=== PATIENT | female | born 1955 | race Caucasian/White ===

== ENCOUNTER 2019-08-22 12:51 | Outpatient (CLI) | payer OTHER, SELFPAY ==
[2019-08-22 13:34] LABS: Add Urine Microscopic? YES; Appearance Urine Cloudy (Clear); Bilirubin Urine Negative (Negative); Blood Urine 3+ (Negative); Color Urine Red (Yellow); Glucose Urine UA Negative (Negative); Ketones Urine Negative (Negative); Leukocyte Esterase Ur 3+ LEU/UL (NEGATIVE); Nitrate Urine Negative (Negative); Protein Urine 2+ mg/dL (Negative); RBC Urine >75 /hpf (0-2); Specific Grav Ur 1.019 (1.001-1.035); Squamous Epithelial Cell Urine Moderate /hpf (Few); Urobilinogen Urine Negative mg/dL (<2.0); WBC Clumps Urine Present /HPF; WBC Urine >75 /hpf (0-3)
== END 2019-08-22 12:52 | disposition home or self-care (01) ==
PROVIDERS: PCP Family Medicine; Visit Provider Physician Assistant
DX: N39.0 Urinary tract infection, site not specified (principal)
CPT/HCPCS: 81001; 87086; 87088

== ENCOUNTER 2019-08-26 14:01 | Outpatient (CLI) | payer OTHER, SELFPAY ==
[2019-08-26 14:21] LABS: Add Urine Microscopic? YES; Appearance Urine Clear (Clear); Bilirubin Urine 2+ (Negative); Blood Urine 1+ (Negative); Color Urine Yellow (Yellow); Glucose Urine UA Negative (Negative); Ketones Urine Negative (Negative); Leukocyte Esterase Ur Negative LEU/UL (Negative); Mucus Urine Rare /lpf; Nitrate Urine Negative (Negative); Protein Urine Negative (Negative); Specific Grav Ur 1.027 (1.001-1.035); Squamous Epithelial Cell Urine Rare /hpf (Few); Urobilinogen Urine Negative mg/dL (<2.0); WBC Urine 0-3 /hpf
== END 2019-08-26 14:02 | disposition home or self-care (01) ==
PROVIDERS: PCP Family Medicine; Visit Provider Physician Assistant
DX: R31.9 Hematuria, unspecified (principal)
CPT/HCPCS: 81001

== ENCOUNTER 2019-08-30 12:48 | Outpatient (CLI) | payer OTHER, SELFPAY ==
--- NOTE | ~2019-08-30 | CT_ITS ---
EXAMINATION: CT abdomen pelvis wo con DATE: 08/30/2019 13:13 INDICATION: Hematuria. Pelvic pain. TECHNIQUE: Computed tomography (CT) of the abdomen and pelvis was performed without intravenous contr ast. Automated exposure control and iterative reconstruction technique were employed. The dose-length product was 951.42 mGy-cm. COMPARISON: CT abdomen 06/09/2008 FINDINGS: The visualized portions of the lung bases demonstrate mild atelectasis. No pleural effusion . The heart size is normal. No pericardial effusion. There is a moderate-sized sliding hiatal hernia. There is a 1.7 cm cyst in the liver. There are changes of cholecystectomy. The spleen, pancreas, adr enal glands, and kidneys are normal. There is no urolithiasis. The bladder is normal. There are tubal ligation clips bilaterally. There is diverticulosis of the colon without evidence of diverticulitis. There are no dilated loops of bowel. The appendix is normal. There are no pathologically enlarged ly mph nodes. There is no free intraperitoneal fluid. There is mild thoracolumbar spondylosis. IMPRESSION: 1. Moderate-sized sliding hiatal hernia. Reviewed, dictated and finalized at location A.
== END 2019-08-30 12:49 | disposition home or self-care (01) ==
PROVIDERS: PCP Family Medicine; Visit Provider Physician Assistant
DX: R31.9 Hematuria, unspecified (principal); K44.9 Diaphragmatic hernia without obstruction or gangrene
CPT/HCPCS: 74176

== ENCOUNTER 2019-09-01 08:02 | Outpatient (CLI) | payer OTHER, SELFPAY ==
[2019-09-01 08:14] LABS: Add Urine Microscopic? NO; Appearance Urine Clear (Clear); Bilirubin Urine Negative (Negative); Blood Urine Negative (Negative); Color Urine Straw (Yellow); Glucose Urine UA Negative (Negative); Ketones Urine Negative (Negative); Leukocyte Esterase Ur Negative LEU/UL (NEGATIVE); Nitrate Urine Negative (Negative); Protein Urine Negative (Negative); Specific Grav Ur 1.013 (1.001-1.035); Urobilinogen Urine Negative mg/dL (<2.0)
== END 2019-09-01 08:03 | disposition home or self-care (01) ==
PROVIDERS: PCP Family Medicine; Visit Provider Physician Assistant
DX: R31.9 Hematuria, unspecified (principal)
CPT/HCPCS: 81003

== ENCOUNTER 2020-01-10 16:28 | Outpatient (CLI) | payer MEDICARE, SELFPAY ==
[2020-01-10 18:03] LABS: Hemoglobin 12.8 g/dL (12.0-15.0); Mean Corpuscular HGB Conc 32.8 g/dl (32-36); Mean Corpuscular Hemoglobin 30.5 pg (26-34); Mean Corpuscular Volume 92.9 fl (80-100); Mean Platelet Volume 8.7 fl (7.4-10.4); Platelet Count Result 331 k/mm3 (150-375); Red Cell Distribution Width 13.7 % (11.5-14.5); White Blood Count 7.8 K/mm3 (4.5-10.0)
[2020-01-10 18:49] LABS: Vitamin D 25 Hydroxy 44.8 ng/mL
== END 2020-01-10 16:29 | disposition home or self-care (01) ==
LOC: ANHLAB 16:36
PROVIDERS: PCP Family Medicine
DX: Z01.812 Encounter for preprocedural laboratory examination (principal); E55.9 Vitamin D deficiency, unspecified
CPT/HCPCS: 36415; 82306; 85027

== ENCOUNTER 2020-02-20 00:11 | Outpatient (CLI) | payer MEDICARE, SELFPAY ==
[2020-02-20 19:58] LABS: SARS-CoV-2 RNA PCR Negative
== END 2020-02-20 00:12 | disposition home or self-care (01) ==
LOC: ANHCOVIDDT 00:11
PROVIDERS: PCP Family Medicine; Visit Provider Internal Medicine Gastroenterology
DX: Z01.812 Encounter for preprocedural laboratory examination (principal); Z20.828 Contact with and (suspected) exposure to other viral communicable diseases
CPT/HCPCS: 87635; C9803; U0003

== ENCOUNTER 2020-02-22 02:56 | Day surgery (SDC) | payer MEDICARE, SELFPAY ==
[2020-02-15 13:21] VITALS: BMI 33.3
[2020-02-22 07:21] VITALS: BP 135/97; PULSE 97; RESP 18; TEMP 36.8; O2SAT 97; BMI 34.6
[2020-02-22] MEDS: LACTATED RINGERS 1,000 ML 150 ML IV CONT (07:30)
--- NOTE | 2020-02-22 08:16 | WPDANESEPPF ---
Anes - Initial Pre Proc Eval Procedure: Operation Date: 02/22/20 08:30 Proposed Procedures p Esophagogastroduodenoscopy - Joseluis Broderick MD Date/Time: 02/22/20 08:16 Surgeon: Joseluis Broderick MD Pre Op Diagnosis: GERD Patient Data Age: 64 Gender: F Height: 5 ft 2 in Weight: 85.9 kg Last Vital Signs Temp 36.8 C 02/22/20 07:21 Pulse 97 02/22/20 07:21 Resp 18 02/22/20 07:21 BP 135/97 H 02/22/20 07:21 Pulse Ox 97 02/22/20 07:21 Allergies Allergy/AdvReac Type Severity Reaction Status Date / Time No Known Allergies Allergy Mild Verified 02/22/20 07:19 Home Medications Medication Instructions Recorded Confirmed Type montelukast 10 mg tablet 10 mg PO DAILY 04/28/19 02/15/20 History omeprazole 40 mg capsule,delayed 40 mg PO DAILY #90 cap 12/01/19 02/15/20 Rx release famotidine 20 mg tablet 20 mg PO DAILY #30 tablet 12/21/19 02/15/20 Rx oxybutynin chloride 5 mg 5 mg PO DAILY #30 tablet 01/16/20 02/15/20 Rx tablet,extended release 24 hr venlafaxine 150 mg 150 mg PO QAM #90 cap 02/08/20 02/22/20 Rx capsule,extended release 24 hr Patient hx anesthesia problems: none Family hx anesthesia problems: none PMFSH Past Medical History Medical History Adenomatous colon polyp Depression Hiatal hernia Surgical History Surgical History S/P carpal tunnel release Status post fusion of joint of finger Social History Social History Smoking status: Never smoker Second hand tobacco smoke exposure: No Alcohol intake: never Substance use: never Substance use type: does not use Living arrangements: with family Gender identity (if verbalized by the patient): Female Spiritual care concerns: No Anes - Eval Final PreProcedure Day of Procedure 02/22/20 08:16 Patient weight: obese Heart: regular rate and rhythm Lungs: clear to auscultation Airway: Mallampati scale class II Neurological: alert and oriented Last oral intake: >/= 8 hours ASA classification: II Emergent: no Anesthetic plan: proceed Anesthesia type and monitoring: general GIVS and standard monitoring Informed Consent: The patient's anesthetic plan and its attendant risks and benefits were discussed with the patient/family/POA. Questions were solicited and answers provided to the satisfaction of the patient/family/POA.
--- NOTE | 2020-02-22 08:31 | PM.HPGS ---
History of Present Illness History of Present Illness Consent: Risks, benefits, and alternatives have been discussed and questions answered. Patient agrees to proceed with procedure. Chief complaint: GERD Narrative: Jillian Echeverria is a 64 year old female with chest pressure and gerd, now using ppi and famotidine. Also has hiatal hernia. Review of Systems Constitutional: Constitutional: Denies headache(s) and Denies weakness Eyes: Eyes: Denies blurry vision ENT: Reports Normal hearing present, Denies headache(s) and Denies neck pain Cardiovascular: Cardiovascular: Denies chest pain and Denies dyspnea Respiratory: Respiratory: Denies dyspnea Gastrointestinal: Gastrointestinal: Reports no additional gastrointestinal complaints Genitourinary: Genitourinary: Denies dysuria Musculoskeletal: Musculoskeletal: Denies neck pain Integumentary/Breasts: Skin/Breast: Denies dry skin Neurologic: Reports Normal hearing present, Denies headache(s) and Denies weakness Psychiatric: Psychiatric: Denies anxiety Endocrine: Endocrine: Denies change in body appearance Hematologic/Lymphatic: Hematologic/Lymphatic: Denies easy bleeding Allergic/Immunologic: Allergic/Immunologic: Denies urticaria PMFSH Past Medical History Medical History Adenomatous colon polyp Depression Hiatal hernia Surgical History Surgical History S/P carpal tunnel release Status post fusion of joint of finger Social History Social History Smoking status: Never smoker Second hand tobacco smoke exposure: No Alcohol intake: never Substance use: never Substance use type: does not use Living arrangements: with family Gender identity (if verbalized by the patient): Female Spiritual care concerns: No Meds Home Medications and Allergies Home Medications Medication Instructions Recorded Confirmed Type montelukast 10 mg tablet 10 mg PO DAILY 04/28/19 02/15/20 History omeprazole 40 mg capsule,delayed 40 mg PO DAILY #90 cap 12/01/19 02/15/20 Rx release famotidine 20 mg tablet 20 mg PO DAILY #30 tablet 12/21/19 02/15/20 Rx oxybutynin chloride 5 mg 5 mg PO DAILY #30 tablet 01/16/20 02/15/20 Rx tablet,extended release 24 hr venlafaxine 150 mg 150 mg PO QAM #90 cap 02/08/20 02/22/20 Rx capsule,extended release 24 hr Allergies Allergy/AdvReac Type Severity Reaction Status Date / Time No Known Allergies Allergy Mild Verified 02/22/20 07:19 Vital Signs Vital Signs - 24 hr 02/22/20 07:21 Temperature 98.2 F Pulse Rate 97 Respiratory Rate 18 Blood Pressure 135/97 H Pulse Oximetry 97 Exam Const: General: comfortable and no acute distress HENMT: General nose exam: Normal nares present Eyes: General: appearance normal, both eyes and all related structures Neck: Neck: no JVD Resp: Auscultation: clear to auscultation bilaterally Cardio: Rate: regular rate Rhythm: regular rhythm GI: Inspection: non-distended GI Palp: Yes Soft to palpation Skin: General skin exam: normal color Neuro: General: gait normal Speech: normal speech Extrem: General: normal to inspection Psych: Mental Status: mental status grossly normal Assessment and Plan Assessment and plan (1) GERD (gastroesophageal reflux disease): Code(s): K21.9 - Gastro-esophageal reflux disease without esophagitis Status: Acute Assessment and Plan: will proceed with egd (2) Hiatal hernia: Code(s): K44.9 - Diaphragmatic hernia without obstruction or gangrene Status: Acute
[2020-02-22 08:44] VITALS: BP 111/75; PULSE 89; RESP 20; O2SAT 95
[2020-02-22 08:54] VITALS: BP 118/74; PULSE 75; RESP 18; O2SAT 98
[2020-02-22 09:04] VITALS: BP 125/85; PULSE 80; RESP 21; O2SAT 100
== END 2020-02-22 09:14 | disposition home or self-care (01) ==
PROVIDERS: PCP Family Medicine; Visit Provider Internal Medicine Gastroenterology
PROC: 0DJ08ZZ Inspection of Upper Intestinal Tract, Via Natural or Artificial Opening Endoscopic (ICD-10-PCS; CPT 43235; principal; 2020-02-22 08:30)
DX: K21.00 Gastro-esophageal reflux disease with esophagitis, without bleeding (principal); K44.9 Diaphragmatic hernia without obstruction or gangrene; R07.89 Other chest pain; K29.70 Gastritis, unspecified, without bleeding; F32.9 Major depressive disorder, single episode, unspecified; E66.9 Obesity, unspecified; Z68.34 Body mass index [BMI] 34.0-34.9, adult
CPT/HCPCS: 43239; 88305; 88342; J7120

== ENCOUNTER 2020-03-06 13:58 | Outpatient (CLI) | payer MEDICARE, SELFPAY ==
--- NOTE | ~2020-03-06 | XR_ITS ---
EXAMINATION: XR UGIAC w barium swallow EXAM DATE: 03/06/2020 14:41 INDICATION: K44.0 - Diaphragmatic hernia with obstruction, without gangr. Esophagitis. TECHNIQUE: Standard single and double contrast barium esophagram and upper GI examination was perform ed. The DAP for this procedure was 2.7 Gycm2. There is no prior study for comparison. FINDINGS: The pharynx is symmetric and without evidence of mass lesion or mucosal irregularity. Ther e is no esophageal stricture, diverticulum or mass identified. There is moderate-sized sliding gastr oesophageal hiatal hernia, which at times reduced completely. The stomach has a normal appearance without evidence of mass lesion, ulceration or filling defect. T here is normal rugal fold pattern. The duodenum and duodenal sweep are normal in appearance. IMPRESSION: Moderate-sized sliding gastroesophageal hiatal hernia. Reviewed, dictated and finalized at location A. ENSATION DIRECTOR
== END 2020-03-06 13:59 | disposition home or self-care (01) ==
PROVIDERS: PCP Family Medicine; Visit Provider Surgery
DX: K44.9 Diaphragmatic hernia without obstruction or gangrene (principal)
CPT/HCPCS: 74246

== ENCOUNTER 2020-04-24 09:25 | Outpatient (CLI) | payer MEDICARE, SELFPAY ==
[2020-04-24 10:01] LABS: Add Urine Microscopic? YES; Appearance Urine Clear (Clear); Bilirubin Urine Negative (Negative); Blood Urine Negative (Negative); Color Urine Yellow (Yellow); Glucose Urine UA Negative (Negative); Ketones Urine Negative (Negative); Leukocyte Esterase Ur 2+ LEU/UL (NEGATIVE); Mucus Urine Rare /lpf; Nitrate Urine Negative (Negative); Protein Urine Negative (Negative); Specific Grav Ur 1.014 (1.001-1.035); Squamous Epithelial Cell Urine Many /hpf (Few); Urobilinogen Urine Negative mg/dL (<2.0); WBC Urine 21-30 /hpf (0-3)
[2020-04-24 10:08] LABS: Alanine Aminotransferase 23 U/L (4-35); Albumin Level 4.2 g/dL (3.5-5.1); Alkaline Phosphatase 116 U/L (38-126); Anion Gap 7 mmol/L (8-16); Aspartate Amino Transferase 28 U/L (14-36); Bilirubin,Total 0.4 mg/dL (0.2-1.3); Blood Urea Nitrogen 16 mg/dL (7-17); Calcium 9.6 mg/dL (8.4-10.2); Carbon Dioxide 30 mmol/L (22-30); Chloride 103 mmol/L (98-107); Estimated Glomerular Filt Rate > 60; Glucose 99 mg/dL (65-105); Potassium 4.4 mmol/L (3.4-5.0); Sodium 140 mmol/L (137-145)
== END 2020-04-24 09:26 | disposition home or self-care (01) ==
PROVIDERS: PCP Family Medicine; Visit Provider Physician Assistant
DX: K21.00 Gastro-esophageal reflux disease with esophagitis, without bleeding (principal); R32 Unspecified urinary incontinence; R26.81 Unsteadiness on feet; R53.83 Other fatigue; Z00.00 Encounter for general adult medical examination without abnormal findings
CPT/HCPCS: 36415; 80053; 81001; 84443

== ENCOUNTER 2020-06-22 09:01 | Outpatient (CLI) | payer MEDICARE, SELFPAY ==
--- NOTE | ~2020-06-22 | DEXA_ITS ---
Bone Density Report Name: Jillian Echeverria Age: 65 Sex: Female Ethnicity: White Date of : 1955 Indication: osteopenia; height loss; prior fracture; Referring Provider: PEDRO DOLL Study: Bone densitometry was performed. Exam Date: June 22, 2020 Accession number: [id number] Bone Density: Region BMD T-score Z-score Classification AP Spine (L3, L4) 0.831 -2.5 -0.5 Osteoporosis Femoral Neck (Left) 0.652 -1.8 -0.2 Osteopenia Total Hip (Left) 0.840 -0.8 0.5 Normal Total Hip Bilateral Avg 0.836 -0.8 0.5 Normal Femoral Neck (Right) 0.715 -1.2 0.4 Osteopenia Total Hip (Right) 0.832 -0.9 0.4 Normal World Health Organization criteria for BMD impression classify patients as: Normal (T-score at or above -1.0), Osteopenia (T-score between -1.0 and -2.5), or Osteoporosis (T-score at or below -2.5). 10-year Fracture Risk: FRAX not reported because: Some T-score for Spine Total or Hip Total or Femoral Neck at or below -2.5 Previous Exams: Region Exam Age BMD T-score BMD Change BMD Change Date g/cm2 vs Baseline vs Previous AP Spine(L3, L4) 06/22/2020 65 0.831 -2.5 -0.059(-6.6%)# -0.023(-2.7%)# 06/09/2008 53 0.855 -2.2 -0.036(-4.0%)* 0.043(5.3%)* 10/04/2005 50 0.812 -2.6 -0.079(-8.8%)* -0.079(-8.8%)* 01/27/2002 46 0.890 -1.9 Total Hip(Left) 06/22/2020 65 0.840 -0.8 0.040(4.9%)# 0.090(12.0%)# 06/09/2008 53 0.750 -1.6 -0.050(-6.3%)* 0.013(1.7%) 10/04/2005 50 0.738 -1.7 -0.063(-7.9%)* -0.063(-7.9%)* 01/27/2002 46 0.801 -1.2 Total Hip(Right) 06/22/2020 65 0.832 -0.9 -0.001(-0.1%)# 0.066(8.6%)# 06/09/2008 53 0.766 -1.4 -0.067(-8.0%)* 0.037(5.1%)* 10/04/2005 50 0.729 -1.7 -0.103(-12.4%) -0.103(-12.4%) 01/27/2002 46 0.832 -0.9 *Denotes significance at 95% confidence level, LSC for AP Spine = 0.022 g/cm2, LSC for Total Hip = 0.027 g/cm2 Clinical Information Provided by Patient: Has had a low trauma fracture Has used the following medications: Vitamin D, Calcium Patient maximum height was 64 No regular weight bearing exercise Does not regularly consume dairy products Drinks caffeinated beverages Onset of menses at age 12 Number of children 1 Impression: The patient has established osteoporosis, based on the Total Spine T-score and the existence of a prior fracture. The patient has risk factors, including: previous fracture. No significant bone loss was observed. Discussion: HIGH RISK OF
--- NOTE | ~2020-06-22 | MM_ITS ---
EXAMINATION: MM screening gokul BI w damon HISTORY: Screening TECHNIQUE: Craniocaudal and mediolateral oblique 3-D tomosynthesis images were obtained and synthetic 2-D images were generated. CAD analysis was submitted and interpreted. COMPARISON: No prior mammogram is available for comparison at this institution. BREAST PARENCHYMAL COMPOSITION: Breast composed of scattered areas of fibroglandular density. FINDINGS: There is no evidence of suspicious mass, calcification, or architectural distortion to sugg est malignancy in either breast. There has been no suspicious interval change. IMPRESSION: 1. No mammographic evidence of malignancy. 2. Recommend routine screening mammography in one year. BI-RADS Category 1: Negative Reviewed, dictated and finalized at location A. SAUCIER
== END 2020-06-22 09:02 | disposition home or self-care (01) ==
LOC: ANHIMG 09:05
PROVIDERS: PCP Family Medicine; Visit Provider Physician Assistant
DX: Z12.31 Encounter for screening mammogram for malignant neoplasm of breast (principal); Z78.0 Asymptomatic menopausal state; M81.0 Age-related osteoporosis without current pathological fracture; M85.852 Other specified disorders of bone density and structure, left thigh; M85.851 Other specified disorders of bone density and structure, right thigh
CPT/HCPCS: 77063; 77067; 77080

== ENCOUNTER 2020-06-26 11:54 | Outpatient (CLI) | payer MEDICARE, SELFPAY ==
--- NOTE | ~2020-06-26 | XR_ITS ---
EXAMINATION: XR chest 2V EXAM DATE: 06/26/2020 13:11 INDICATION: Z01.818 Encounter preprocedural examination. History of gastroesophageal reflux. TECHNIQUE: Frontal and lateral projections of the chest obtained and reviewed. There is no prior michele dy for comparison. FINDINGS: The lungs are clear. There are no pleural effusions. The cardiomediastinal silhouette is within normal limits. There is no pneumothorax suspected. The bones and soft tissues are unremarkab le. IMPRESSION: Unremarkable chest x-ray exam. Reviewed, dictated and finalized at location B. POULE EXAMINER
--- NOTE | 2020-06-26 12:52 | ECG_ITS ---
Measurements Intervals [place] Rate: 80 P: 23 OH: 166 QRS: 10 QRSD: 84 T: 30 QT: 352 QTc: 407 Interpretive Statements SINUS RHYTHM POOR R WAVE PROGRESSION, ANTERIOR LEADS BASELINE ARTIFACT- I, II, III, AVR, AVL, AVF, V3 BORDERLINE ECG Electronically Signed On 06-26-2020 13:56:07 YACHT HAND by Etienne Woods D.O.
[2020-06-26 13:35] LABS: Hematocrit 39.3 % (37.0-47.0); Mean Corpuscular HGB Conc 33.1 g/dl (32-36); Mean Corpuscular Hemoglobin 30.4 pg (26-34); Mean Corpuscular Volume 91.8 fl (80-100); Mean Platelet Volume 8.5 fl (7.4-10.4); Platelet Count Result 329 k/mm3 (150-375); Red Blood Count 4.28 M/mm3 (4.2-5.4); Red Cell Distribution Width 13.9 % (11.5-14.5); White Blood Count 6.5 K/mm3 (4.5-10.0)
[2020-06-26 13:45] LABS: Anion Gap 6 mmol/L (8-16); Blood Urea Nitrogen 17 mg/dL (7-17); Calcium 9.6 mg/dL (8.4-10.2); Carbon Dioxide 30 mmol/L (22-30); Chloride 106 mmol/L (98-107); Estimated Glomerular Filt Rate > 60; Glucose 125 mg/dL (65-105); Potassium 4.2 mmol/L (3.4-5.0); Sodium 142 mmol/L (137-145)
== END 2020-06-26 11:55 | disposition home or self-care (01) ==
LOC: ANHSURGERY 11:55
PROVIDERS: PCP Family Medicine; Visit Provider Surgery
DX: Z01.818 Encounter for other preprocedural examination (principal)
CPT/HCPCS: 36415; 71046; 80048; 85027; 86850; 86900; 86901; 93005

== ENCOUNTER → 2020-06-30 00:51 | Outpatient (CLI) | payer MEDICARE, SELFPAY ==
[2020-06-30 18:54] LABS: SARS-CoV-2 RNA PCR Negative
== END ==
PROVIDERS: PCP Family Medicine; Visit Provider Surgery
DX: Z01.812 Encounter for preprocedural laboratory examination (principal); Z20.822 Contact with and (suspected) exposure to COVID-19
CPT/HCPCS: C9803; U0003; U0005

== ENCOUNTER 2020-07-05 10:04 | Inpatient (IN) | payer MEDICARE, SELFPAY ==
[2020-06-26 12:12] VITALS: BMI 33.8
--- NOTE | 2020-07-03 17:21 | PM.IMHP ---
H&P: HPI History of Present Illness Date/Time: 07/03/20 17:21 Chief Complaint: Heartburn with esophagitis Narrative: Patient is a 65-year-old woman who has had gastroesophageal reflux disease for many years. This was stable on omeprazole but in the last 12-18 months this has not been effective. She was seen by Dr. Zuniga and had an EGD 02/22/2020. This showed grade 2 esophagitis. Pepcid was added to her omeprazole but this really did not alleviate the heartburn. She had a CT scan back in August which showed a moderate-sized hiatal hernia. 03/06/2020 she had a barium swallow upper GI which showed a moderate hiatal hernia but no other lesions or abnormalities. She was seen in the office and evaluated. She is felt to have recalcitrant gastroesophageal reflux and esophagitis. She underwent esophageal manometry at [facility] 03/21/2020. This showed a hypotensive lower esophageal sphincter that relax normally. There was no esophageal motility abnormalities to contraindicate a full 360 degree fundoplication. After thorough discussion in the office, she has been prepared for surgery and is taken to the operating room for laparoscopic Bárbara fundoplication. Review of Systems Review of Systems: All systems reviewed & are unremarkable except as noted in HPI and below Constitutional: Constitutional: Denies anorexia, Denies chills, Denies excessive sweating, Denies fever(s), Denies headache(s) and Denies poor appetite Cardiovascular: Cardiovascular: Denies chest pain and Denies dyspnea Respiratory: Respiratory: Denies cough and Denies dyspnea Gastrointestinal: Gastrointestinal: Reports as per HPI, Denies bloating, Denies constipation, Reports heartburn, Denies nausea and Reports other (Had single incision laparoscopic cholecystectomy in 2009) Neurologic: Denies confusion and Denies headache(s) [facility] Past Medical History Medical History Adenomatous colon polyp Depression GERD (gastroesophageal reflux disease) Surgical History Surgical History History of bunionectomy History of cholecystectomy History of toe surgery hammer toe S/P carpal tunnel release Status post fusion of joint of finger Social History Social History Smoking status: Never smoker Second hand tobacco smoke exposure: No Alcohol intake: current Drinks per week: 1 Substance use: never Substance use type: does not use Additional living arrangements comments: 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 Gender identity (if verbalized by the patient): Female Spiritual care concerns: No Meds Home Medications and Allergies Home Medications Medication Instructions Recorded Confirmed Type venlafaxine 150 mg 150 mg PO QAM #90 cap 02/08/20 06/26/20 Rx capsule,extended release 24 hr calcium carbonate-vitamin D3 1 tablet PO DAILY 06/26/20 06/26/20 History [Calcium + D] famotidine 20 mg PO QAM 06/26/20 06/26/20 History multivitamin [Multiple Vitamin] 1 tablet PO DAILY 06/26/20 06/26/20 History omeprazole 40 mg PO QAM 06/26/20 06/26/20 History Allergies Allergy/AdvReac Type Severity Reaction Status Date / Time No Known Allergies Allergy Mild Verified 06/26/20 12:07 Exam Const: General: cooperative, comfortable, no acute distress, alert and awake; No confusion Orientation/consciousness: No confusion HENMT: Head: normocephalic, atraumatic, no contusions and no scalp lesions Ears: external ears normal General nose exam: Normal external nose present Face and sinus: face symmetric and dry mucous membranes Mouth: Yes Normal oral and palatal mucosa present and Yes tongue normal Throat: posterior oropharynx normal Eyes: Conjunctivae: conjunctivae normal Sclera: sclerae normal Pupils: Equal, round and reactive pupils present EOM: EOMs intact bilat
[2020-07-04] VITALS (19 sets, daily range): BP systolic 132–198; BP diastolic 74–96; PULSE 68–99; RESP 16–36; TEMP 36.3–36.8; O2SAT 95–100
[2020-07-04] MEDS: LACTATED RINGERS 1,000 ML 30 ML IV CONT ×2 (07:20→12:11)
--- NOTE | 2020-07-04 07:34 | WPDHPUPDATE1 ---
History and Physical Update Update Date/Time: 07/04/20 07:34 History and Physical has been reviewed, including an updated exam of the patient. There are NO changes in the patient's condition. Risks, benefits, and alternatives have been discussed and questions answered. Patient agrees to proceed with procedure.
--- NOTE | 2020-07-04 08:02 | P.PNAN_ITS ---
Anes - Initial Pre Proc Eval Procedure: Operation Date: 07/04/20 08:30 Proposed Procedures p Laparoscopic Bárbara Fundoplication - Suman Dukes MD Date/Time: 07/04/20 08:02 Surgeon: Suman Dukes MD Pre Op Diagnosis: GERD, Esophagitis Patient Data Age: 65 Gender: F Height: 1.6 m Weight: 84.7 kg Last Vital Signs Temp 36.3 C L 07/04/20 06:58 Pulse 84 07/04/20 06:58 Resp 18 07/04/20 06:58 BP 132/86 07/04/20 06:58 Pulse Ox 98 07/04/20 06:58 Allergies Allergy/AdvReac Type Severity Reaction Status Date / Time No Known Allergies Allergy Mild Verified 07/04/20 07:31 Home Medications Medication Instructions Recorded Confirmed Type venlafaxine 150 mg 150 mg PO QAM #90 cap 02/08/20 07/04/20 Rx capsule,extended release 24 hr calcium carbonate-vitamin D3 1 tablet PO DAILY 06/26/20 07/04/20 History [Calcium + D] famotidine 20 mg PO QAM 06/26/20 07/04/20 History multivitamin [Multiple Vitamin] 1 tablet PO DAILY 06/26/20 07/04/20 History omeprazole 40 mg PO QAM 06/26/20 07/04/20 History Patient hx anesthesia problems: none Family hx anesthesia problems: none PMFSH Past Medical History Medical History Adenomatous colon polyp Depression GERD (gastroesophageal reflux disease) Surgical History Surgical History History of bunionectomy History of cholecystectomy History of toe surgery hammer toe S/P carpal tunnel release Status post fusion of joint of finger Social History Social History Smoking status: Never smoker Second hand tobacco smoke exposure: No Alcohol intake: current Drinks per week: 1 Alcohol use details: 1 DRINK/WEEK Substance use: never Substance use type: does not use Living arrangements: with family 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 living arrangements comments: 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 Gender identity (if verbalized by the patient): Female Spiritual care concerns: No Anes - Eval Final PreProcedure Day of Procedure 07/04/20 08:02 Patient weight: obese Heart: regular rate and rhythm Lungs: clear to auscultation and normal air movement Airway: Mallampati scale class II Neurological: alert and oriented Last oral intake: >/= 8 hours ASA classification: II Emergent: no Anesthetic plan: proceed Anesthesia type and monitoring: general ETT and standard monitoring Informed Consent: The patient's anesthetic plan and its attendant risks and benefits were discussed with the patient/family/POA. Questions were solicited an d answers provided to the satisfaction of the patient/family/POA.
[2020-07-04] MEDS: FAMOTIDINE 20 MG/2 ML VIAL IV PUSH (08:36)
[2020-07-04] MEDS: ceFAZolin 2 GM/D5W 50 ML 2 GM/50 ML BAG IVPB (09:01)
[2020-07-04] MEDS: BUPIVACAINE/EPINEPHRINE 0.5% 30 ML VIAL INFILTRATE (09:54)
--- NOTE | 2020-07-04 12:20 | PM.PROC ---
Procedure Note - Detailed Date of procedure: 07/04/20 Pre-op diagnosis: GERD, Esophagitis Esophagitis, gastroesophageal reflux, hiatal hernia Post-op diagnosis: other (Right pneumothorax) Procedure performed: Laparoscopic Bárbara fundoplication, placement of right chest tube Description of procedure: The patient was taken to surgery and induced into general anesthesia. Mon catheter was placed. Full prep and drape of the abdomen was carried out. 0.5% Marcaine with epinephrine local was infiltrated prior to placement of each of the trocars. The initial trocar was in the midline cephalad to the umbilicus. The varies needle was used to gain access to the abdominal cavity. Water drop technique was used to confirm. We insufflated the abdomen and then used a [address] the initial port. With this port intraperitoneal we then placed the remaining ports under direct visualization. A left lateral subcostal 10 11 port was placed. Right and left epigastric trocars which were also 10 11 ports were placed. A 12 mm left lateral subcostal port was placed. The patient was then placed in reverse Trendelenburg. A liver retractor was introduced from the right lateral port and then used to elevate the lateral segment of the left lobe of the liver, thereby exposing the diaphragmatic hiatus and hiatal hernia. We started by dividing the hepatic colic ligament over lying the right annelise. Virtually all the dissection was done with the LigaSure. No cautery was used. We then further exposed the right annelise of the diaphragm dissecting between this and the hiatal hernia. Gentle traction on the herniated contents was used and we eventually were able to identify the left annelise and dissect posterior to the esophagus and upper stomach. Some additional dissection in the anterior most aspect of the diaphragmatic hiatus was also carried out. We then turned the stomach so that the greater curvature and greater omentum were exposed. This was done near the upper stomach. Again using the LigaSure, we entered the lesser sac and divided the greater omentum from the upper stomach and fundus of the stomach. There were a lot of adhesions to the posterior stomach and we had to divide these with the LigaSure to mobilize the stomach. Exposure of the short gastrics near the area of the left annelise was difficult but eventually was exposed and the fundus was fully mobilized. We then further went on to dissect adhesions that were overlying the left annelise. Eventually the left annelise was fully exposed. We continued to retract the esophagus and stomach to the patient's right and dissection was carried out in the mediastinum freeing the esophagus from adhesions there and elongating the shortened esophagus. This mobilized the left side of the esophagus fairly well. We then turned the stomach back so that the fundus was on the left side of the abdomen. We looked at the diaphragmatic hiatus and up into the mediastinum from the right side of the esophagus. With gentle traction on the upper stomach we continued dissection in the mediastinum to free up the esophagus more on the right side. Also dissection under the distal esophagus was carried out. Some fatty tissue around the gastroesophageal junction that was also part of the hernia sac was dissected and removed from the abdomen. This was discarded. I was then able to place a Steffanie drain around the distal esophagus. It was clipped to itself. This served as a good traction point just above the stomach and at the distal esophagus. At this point, I placed a ruler in the abdomen and measured the length of intra-abdominal esophagus. We had 3 cm of esophagus. Its desired to have 4 cm or more intra-abdominal. Using the [place] drain, the esophagus was again retracted and I dissected farther up on the right side of the mediastinal esophagus. Using this and then further exposing the esophagus in the mediastinum I dissected nearly to t
--- NOTE | 2020-07-04 12:38 | SUR.PHASEI ---
Addendum entered by Sharath Mckeon RN 07/04/20 14:02: BIPAP REMOVED AT 1400 07/04/20 Original Note: BIPAP 10 INSPIRATORY AND 5 EXPIRATORY AT 80%.
[2020-07-04] MEDS: LABETALOL HCL INJ 100 MG/20 ML VIAL 10 MG IV PUSH (13:19)
[2020-07-04] MEDS: hydrALAZINE HCL 20 MG/ML VIAL 5 MG IV PUSH (14:25)
--- NOTE | 2020-07-04 15:03 | SUR.PHASEI ---
PT OFF BIPAP AND CHEST TUBE IS IN SOUND WORKING ORDER. SENT TO ROOM 250.
[2020-07-04] MEDS: LACTATED RINGERS 1,000 ML 100 ML IV CONT (15:12)
[2020-07-04] MEDS: MORPHINE SULFATE (*CRX) 4 MG/ML INJ IV PUSH ×3 (15:12→20:31)
--- NOTE | 2020-07-04 15:22 | ADMGEN ---
This patient, Jillian Echeverria, was admitted to Medical Room 250-01. Patient/family oriented to hospital policies and general routines including ID bracelet, bed and alarms, visiting hours, pain management, procedures, bathroom and other care routines, personal items, smoking policy, room service/diet, and visiting hours. Information on how to activate the Rapid Response Team has been discussed. Patient/Family are encouraged to report perceived risks to care and to ask questions if they do not understand what they are told or what they should do.
--- NOTE | 2020-07-04 15:22 | PC.NURSE ---
On 07/04/20, the student, [Leatha Moralez ], provided care and completed [employer] documentation on this patient. I have reviewed the student's documentation and agree with the findings.
[2020-07-04] MEDS: IBUPROFEN IV 800 MG/200 ML 800 MG/200 ML BAG 400 MG IVPB (17:05)
[2020-07-04] MEDS: SENNA/DOCUSATE SODIUM TABLET 2 TAB PO (20:32)
[2020-07-04] MEDS: ENOXAPARIN 30 MG/0.3 ML SYRINGE SUB-Q (20:32)
[2020-07-05] VITALS (7 sets, daily range): BP systolic 120–169; BP diastolic 64–94; PULSE 84–94; RESP 16–18; TEMP 36.5–37.1; O2SAT 91–96
--- NOTE | ~2020-07-05 | XR_ITS ---
EXAMINATION: XR chest 1V portable DATE: 07/06/2020 07:38 INDICATION: Right pneumothorax. TECHNIQUE: A single frontal view of the chest was obtained. COMPARISON: Chest single view at 5:32 AM FINDINGS: There is mild atelectasis in the mid and lower lung zones. No pleural effusion. There is a tiny right pneumothorax. The heart size is normal. Surgical clips in the right upper quadrant are lik chantal from cholecystectomy. IMPRESSION: 1. Tiny right pneumothorax status post chest tube removal. 2. Mild atelectasis in the mid and lower lung zones. Reviewed, dictated and finalized at location A.
--- NOTE | ~2020-07-05 | XR_ITS ---
EXAMINATION: XR chest 1V portable DATE: 07/06/2020 05:53 INDICATION: Right pneumothorax. TECHNIQUE: A single frontal view of the chest was obtained. COMPARISON: Chest single view 07/05/2020 FINDINGS: There is mild atelectasis at the lung bases. No pleural effusion or pneumothorax. The heart size is normal. There is a right-sided chest tube in expected position. IMPRESSION: 1. No pneumothorax. Right-sided chest tube in expected position. 2. Mild atelectasis at the lung bases. Reviewed, dictated and finalized at location A.
--- NOTE | ~2020-07-05 | XR_ITS ---
EXAMINATION: XR chest-chest tube insert/pos DATE: 07/04/2020 12:26 INDICATION: Right pneumothorax status post chest tube placement. TECHNIQUE: A single frontal view of the chest was obtained. COMPARISON: Chest single view 07/04/2020 FINDINGS: The patient is rotated to her right. There is mild atelectasis in the mid and lower lung zo libertad. No pleural effusion or pneumothorax. The heart size is normal. There is gas in the chest wall bi laterally. There is a right-sided chest tube in expected position. IMPRESSION: 1. No pneumothorax. Right-sided chest tube in expected position. 2. Mild atelectasis in the mid and lower lung zones. Reviewed, dictated and finalized at location A.
--- NOTE | ~2020-07-05 | XR_ITS ---
EXAMINATION: XR chest 1V portable DATE: 07/05/2020 05:45 INDICATION: Right pneumothorax. TECHNIQUE: A single frontal view of the chest was obtained. COMPARISON: Chest single view 07/04/2020 FINDINGS: There is mild atelectasis in the lower lung zones. No pleural effusion or pneumothorax. The heart size is normal. There is a right-sided chest tube in expected position. There is gas in left l ateral chest wall with interval improvement. Surgical clips in the right upper quadrant are likely fr om cholecystectomy. IMPRESSION: 1. No pneumothorax. Right-sided chest tube in expected position. 2. Mild atelectasis in the lower lung zones. Reviewed, dictated and finalized at location A.
--- NOTE | ~2020-07-05 | XR_ITS ---
EXAMINATION: XR chest 1V portable EXAM DATE: 07/04/2020 11:47 INDICATION: Possible pneumo on the right. TECHNIQUE: Portable AP frontal chest x-ray was obtained. Comparison is made to prior examination from 06/26/2020. FINDINGS: Small to moderate right-sided pneumothorax with about 3 cm from the pleural reflections at the apex. The endotracheal tube is in position. Linear left basilar atelectasis. Left lung wasn't com pletely imaged. No evidence of left pneumothorax. Cardiomediastinal silhouette is normal. There are c holecystectomy clips. IMPRESSION: Small to moderate right pneumothorax. I discussed this finding with the surgeon in the operating room. Reviewed, dictated and finalized at location A.
[2020-07-05] MEDS: MORPHINE SULFATE (*CRX) 4 MG/ML INJ IV PUSH (00:35)
[2020-07-05] MEDS: IBUPROFEN IV 800 MG/200 ML 800 MG/200 ML BAG 400 MG IVPB ×3 (00:35→11:30)
[2020-07-05] MEDS: LACTATED RINGERS 1,000 ML 100 ML IV CONT (04:04)
[2020-07-05 06:26] LABS: Hematocrit 35.3 % (37.0-47.0); Hemoglobin 11.4 g/dL (12.0-15.0); Mean Corpuscular HGB Conc 32.3 g/dl (32-36); Mean Corpuscular Hemoglobin 29.6 pg (26-34); Mean Corpuscular Volume 91.7 fl (80-100); Mean Platelet Volume 8.8 fl (7.4-10.4); Platelet Count Result 294 k/mm3 (150-375); Red Blood Count 3.85 M/mm3 (4.2-5.4); Red Cell Distribution Width 13.9 % (11.5-14.5); White Blood Count 10.1 K/mm3 (4.5-10.0)
[2020-07-05 06:28] LABS: Anion Gap 3 mmol/L (8-16); Blood Urea Nitrogen 14 mg/dL (7-17); Calcium 8.7 mg/dL (8.4-10.2); Carbon Dioxide 30 mmol/L (22-30); Chloride 105 mmol/L (98-107); Estimated CRCL calculation 70 ml/min; Estimated Glomerular Filt Rate > 60; Glucose 113 mg/dL (65-105); Sodium 138 mmol/L (137-145)
--- NOTE | 2020-07-05 09:25 | WPDANESPN ---
Anes - Prog Note Post-Op Date/Time: 07/05/20 09:25 Cardiovascular status: normal Respiratory status: normal Airway patency: baseline Mental status: baseline Post-Op hydration status: normal Vital Signs: Last Vital Signs Temp 36.5 C 07/05/20 05:03 Pulse 94 07/05/20 05:03 Resp 16 07/05/20 05:03 BP 120/74 07/05/20 05:03 Pulse Ox 95 07/05/20 06:00 Pain Score (VAS): 2 I/O: Intake & Output 07/04/20 07/05/20 07/05/20 23:59 07:59 15:59 Intake Total 450 1400 420 Output Total 1413 Balance 450 -13 420 Laboratory Tests 07/05/20 05:16 07/05/20 05:16 07/05/20 07/05/20 05:16 05:16 WBC 10.1 H RBC 3.85 L Hgb 11.4 L Hct 35.3 L MCV 91.7 MCH 29.6 MCHC 32.3 RDW 13.9 Plt Count 294 MPV 8.8 Sodium 138 Potassium 4.0 Chloride 105 Carbon Dioxide 30 Anion Gap 3 L BUN 14 Creatinine 0.70 Estim Creat Clear Calc 70 Estimated GFR > 60 Glucose 113 H Calcium 8.7 Post-procedural complaints: none Patient Feedback: Patient satisfied with anesthetic care.
[2020-07-05] MEDS: polyethylene glycoL 3350 17 GM POWD.PACK PO (09:29)
[2020-07-05] MEDS: VENLAFAXINE HCL XR 75 MG CAP.ER.24H 150 MG PO (09:30)
[2020-07-05] MEDS: PANTOPRAZOLE 40 MG TABLET PO (09:30)
[2020-07-05] MEDS: ENOXAPARIN 30 MG/0.3 ML SYRINGE SUB-Q ×2 (09:31→20:31)
--- NOTE | 2020-07-05 11:36 | PM.PNGS ---
Progress Note: A&P Assessment and Plan (1) Esophagitis determined by endoscopy: Code(s): K20.90 - Esophagitis, unspecified without bleeding Status: Chronic Assessment and Plan: POD#1 and doing well. Pain is well-controlled. Advancing diet to full liquids this morning, will advance to low residue. Encouraged getting up to chair for meals today. Repeat labs tomorrow am (2) Pneumothorax, right: Code(s): J93.9 - Pneumothorax, unspecified Status: Acute Assessment and Plan: Right pneumothorax with chest tube placement during surgery. Chest x-ray this morning showed no pneumothorax and chest tube in good position. No air leak. Will place chest tube to water seal today and repeat chest x-ray tomorrow morning. Encouraged IS use (3) GERD (gastroesophageal reflux disease): Qualifiers: Esophagitis bleeding: without hemorrhage Esophagitis presence: with esophagitis Qualified Code(s): K21.00 - Gastro-esophageal reflux disease with esophagitis, without bleeding Code(s): K21.9 - Gastro-esophageal reflux disease without esophagitis Status: Chronic Additional Plan Discussed the plan of care with Dr. Dukes. Subjective Subjective Date/Time Seen: 07/05/20 11:36 Post Op day: 1 (Laparoscopic Bárbara fundoplication, placement of right chest tube) Patient reports: tolerating liquids well and flatus Interval history: Patient reports having some incisional pain that has been controlled with analgesics. Denies nausea or vomiting. Tolerating her clear liquid diet. No other complaints. Review of Systems Review of Systems: All systems reviewed & are unremarkable except as noted in HPI and below Constitutional: Constitutional: Reports as per HPI, Reports no additional constitutional complaints, Denies chills and Denies fever(s) Cardiovascular: Cardiovascular: Reports no additional cardiovascular complaints, Denies chest pain and Denies leg edema Respiratory: Respiratory: Reports no additional respiratory complaints, Denies cough and Denies dyspnea Gastrointestinal: Gastrointestinal: Reports as per HPI and Reports no additional gastrointestinal complaints Neurologic: Reports system reviewed and no additional complaints, except as documented, Denies confusion and Denies focal weakness Exam Const: General: comfortable, no acute distress, alert and awake Orientation/consciousness: patient oriented x3 Chest: Other: Right anterior chest tube in place, dressing clean/dry/intact. No air leak. Resp: Effort & Inspection: normal respiratory effort Auscultation: clear to auscultation bilaterally Cardio: Rate: regular rate Rhythm: regular rhythm GI: Inspection: non-distended and incision (Abdominal incisions clean and dry, glue intact.) GI Palp: Yes Soft to palpation, Yes Tenderness to palpation present (GI) (incisional) and No Guarding due to palpation present (GI) Auscultation: Hypoactive bowel sounds present Rectal Exam: deferred Skin: General skin exam: normal color Rashes: no rashes Neuro: General: patient oriented x3, moves all extremities and no focal motor deficits Cranial nerves: Yes CN's II-XII intact bilaterally Speech: normal speech Extrem: General: no clubbing, cyanosis or edema and no calf tenderness Psych: Mental Status: mental status grossly normal Attitude: cooperative Thought process: Normal thought process present Thought content: Yes Normal thought content present Insight: Good insight present (Psych) Judgement: Good judgement present (Psych) Objective Data Vital Signs Vital Signs: Vital Signs - 24 hr 07/04/20 12:11 07/04/20 12:15 07/04/20 12:30 Temperature 97.5 F L Pulse Rate 94 99 96 Respiratory Rate 18 20 36 H Blood Pressure 146/74 H 146/74 H 164/94 H Pulse Oximetry 98 96 100 07/04/20 12:45 07/04/20 13:00 07/04/20 13:15 Temperature Pulse Rate 84 82 81 Respiratory Rate 24 H 21 H 20 Blood Pressure 191/96 H 198/91 H 196/95 H Pulse Oxim
--- NOTE | 2020-07-05 15:07 | PC.NURSE ---
On 07/05/20, the student, [Radha Matthew ], provided care and completed [employer] documentation on this patient. I have reviewed the student's documentation and agree with the findings.
[2020-07-05] MEDS: HYDROcodone/acetaminophen (*CRX) 5-325 MG TABLET 1 TAB PO ×2 (16:08→21:51)
[2020-07-05] MEDS: IBUPROFEN 600 MG TABLET PO ×2 (18:07→23:58)
[2020-07-05] MEDS: SENNA/DOCUSATE SODIUM TABLET 2 TAB PO (20:33)
[2020-07-06 05:36] LABS: Hematocrit 36.3 % (37.0-47.0); Mean Corpuscular HGB Conc 33.1 g/dl (32-36); Mean Corpuscular Hemoglobin 30.7 pg (26-34); Mean Corpuscular Volume 92.8 fl (80-100); Mean Platelet Volume 8.5 fl (7.4-10.4); Platelet Count Result 284 k/mm3 (150-375); Red Blood Count 3.91 M/mm3 (4.2-5.4); Red Cell Distribution Width 13.8 % (11.5-14.5); White Blood Count 7.1 K/mm3 (4.5-10.0)
[2020-07-06 05:57] LABS: Anion Gap 0 mmol/L (8-16); Blood Urea Nitrogen 11 mg/dL (7-17); Carbon Dioxide 33 mmol/L (22-30); Chloride 106 mmol/L (98-107); Estimated CRCL calculation 70 ml/min; Estimated Glomerular Filt Rate > 60; Glucose 97 mg/dL (65-105); Potassium 3.7 mmol/L (3.4-5.0); Sodium 139 mmol/L (137-145)
[2020-07-06 06:00] VITALS: BP 150/81; PULSE 77; RESP 16; TEMP 36.1; O2SAT 94
[2020-07-06] MEDS: VENLAFAXINE HCL XR 75 MG CAP.ER.24H 150 MG PO (08:48)
[2020-07-06] MEDS: IBUPROFEN 600 MG TABLET PO ×2 (08:49→11:35)
[2020-07-06] MEDS: ENOXAPARIN 30 MG/0.3 ML SYRINGE SUB-Q (08:50)
[2020-07-06] MEDS: PANTOPRAZOLE 40 MG TABLET PO (08:50)
[2020-07-06] MEDS: polyethylene glycoL 3350 17 GM POWD.PACK PO (08:50)
[2020-07-06 09:00] VITALS: BP 142/83; PULSE 89; RESP 14; TEMP 36.2; O2SAT 96
--- NOTE | 2020-07-06 12:15 | PM.DS ---
DS: Admitting Diagnosis Admitting Diagnosis Admitting Diagnosis: Reflux esophagitis Hiatal hernia DS: Discharge Diagnosis Discharge Diagnosis (1) Esophagitis determined by endoscopy: Code(s): K20.90 - Esophagitis, unspecified without bleeding Status: Chronic (2) Hiatal hernia without gangrene and obstruction: Code(s): K44.9 - Diaphragmatic hernia without obstruction or gangrene Status: Acute (3) Pneumothorax, right: Code(s): J93.9 - Pneumothorax, unspecified Status: Acute DS: Summary Hospital Course Hospital Course: The patient is a 65-year-old woman who has a long history of gastroesophageal reflux disease. In last 12 months this has been recalcitrant to acid reducing medication. She had an EGD that showed reflux esophagitis. She had imaging that showed a moderate hiatal hernia. She had preoperative esophageal manometry that showed a hypotensive lower esophageal sphincter but relatively normal esophageal motility otherwise. After discussion in the office, she was prepared for surgery and taken to the operating room on 07/05/2019. Bárbara fundoplication was performed laparoscopically. The esophagus was very short and high dissection into the mediastinum was necessary. During the surgery the patient suffered a small right pneumothorax. This was treated with a right chest tube on the operating room table. Postoperatively the patient did well. She tolerated liquids and then lower fiber solid foods. Her chest tube was placed to water seal on postop day 1. The lung remained expanded and the chest tube was removed on postop day 2. She was comfortable on oral analgesics an eating adequately. She was ambulating independently and able to be discharged on postoperative day 2 in good condition. Status at Discharge Overall status at discharge: patient is progressing back to baseline Time Spent with Patient Time attestation: Total time spent providing and/or coordinating discharge services: DS: Data Data Completed and Pending Labs on day of discharge: Labs from last 24 hours 07/06/20 07/06/20 05:21 05:21 WBC 7.1 RBC 3.91 L Hgb 12.0 Hct 36.3 L MCV 92.8 MCH 30.7 MCHC 33.1 RDW 13.8 Plt Count 284 MPV 8.5 Sodium 139 Potassium 3.7 Chloride 106 Carbon Dioxide 33 H Anion Gap 0 L BUN 11 Creatinine 0.70 Estim Creat Clear Calc 70 Estimated GFR > 60 Glucose 97 Calcium 9.0 Discharge Plan Discharge Attending physician on discharge: Suman Dukes Discharging Clinician: Suman Dukes Anticipated Discharge Date/Time: 07/06/20 14:00 Patient Disposition: Home, Self-Care Activity: other - see discharge instructions Diet: as tolerated and regular Wound Care Instructions: keep dressing dry Discharge Instructions: Ambulate 3-4 x per day and as tolerated. No lifting over 15-20lbs. May bathe tomorrow-keep right chest dressing dry. Stairs are OK. May drive a car in 3 days. May remove right chest dressing on Thursday and leave open. Okay to shower and wash all incisions with soap and water thereafter. Call office with any complaints of shortness of breath, chest pain, abdominal pain or vomiting, fever over 100.5, or any other significant change in condition. Patient Instructions: Antibiotic Form Stand Alone Forms: General Discharge Information Follow-up/Referrals: Suman Dukes MD [Physician] - 2 Weeks Discharge Medications: New hydrocodone-acetaminophen 5-325 mg tablet 1 - 2 tablet PO Q6H PRN (Reason: pain) Qty: 7 RF: 0 sennosides-docusate sodium [Senokot-S] 8.6-50 mg Tablet 2 tab-cap PO HS Qty: 14 RF: 0 polyethylene glycol 3350 [Miralax] 17 gram Powder In Packet 17 g PO QAM Qty: 30 RF: 0 ibuprofen 600 mg tablet 600 mg PO Q6H PRN (Reason: pain) Qty: 14 RF: 0 Continued multivitamin [Multiple Vitamin] Tablet 1 tablet PO DAILY RF: 0 calcium carbonate-vitamin D3 [Calcium
--- NOTE | 2020-07-06 15:11 | PC.NURSE ---
On 07/06/20, the student, [ Maritza Becca], provided care and completed [employer] documentation on this patient. I have reviewed the student's documentation and agree with the findings.
== END 2020-07-06 14:22 | disposition home or self-care (01) | DRG 327 ==
LOC: ANHSURGERY 10:08 → ANH2MED 10:08
PROVIDERS: Admitting Provider Surgery; PCP Family Medicine; Visit Provider Surgery
PROC: 0DV44ZZ Restriction of Esophagogastric Junction, Percutaneous Endoscopic Approach (ICD-10-PCS; CPT 43281; principal; 2020-07-04 08:30)
DX: K21.00 Gastro-esophageal reflux disease with esophagitis, without bleeding (principal); J95.811 Postprocedural pneumothorax; K44.9 Diaphragmatic hernia without obstruction or gangrene; E66.9 Obesity, unspecified; Z68.33 Body mass index [BMI] 33.0-33.9, adult; Z90.49 Acquired absence of other specified parts of digestive tract
CPT/HCPCS: 36415; 71045; 80048; 85027; 94002; A9270; C1713; C1729; J0360; J0690; J1100; J1170; J1650; J1741; J2250; J2270; J2405; J2704; J2710; J3010; J7120

== ENCOUNTER 2021-04-15 09:38 | Outpatient (CLI) | payer MEDICARE, SELFPAY ==
[2021-04-15 09:54] LABS: Hematocrit 40.4 % (37.0-47.0); Hemoglobin 13.3 g/dL (12.0-15.0); Mean Corpuscular HGB Conc 32.9 g/dl (32-36); Mean Corpuscular Hemoglobin 31.4 pg (26-34); Mean Corpuscular Volume 95.5 fl (80-100); Mean Platelet Volume 8.3 fl (7.4-10.4); Platelet Count Result 309 k/mm3 (150-375); Red Blood Count 4.23 M/mm3 (4.2-5.4); Red Cell Distribution Width 13.5 % (11.5-14.5); White Blood Count 7.2 K/mm3 (4.5-10.0)
[2021-04-15 10:00] LABS: Add Urine Microscopic? NO; Appearance Urine Clear (Clear); Bilirubin Urine Negative (Negative); Blood Urine Negative (Negative); Color Urine Yellow (Yellow); Glucose Urine UA Negative (Negative); Ketones Urine Negative (Negative); Leukocyte Esterase Ur Negative LEU/UL (NEGATIVE); Nitrate Urine Negative (Negative); Protein Urine Negative (Negative); Specific Grav Ur 1.011 (1.001-1.035); Urobilinogen Urine Negative mg/dL (<2.0)
[2021-04-15 10:03] LABS: Alanine Aminotransferase 26 U/L (4-35); Albumin Level 4.4 g/dL (3.5-5.1); Alkaline Phosphatase 126 U/L (38-126); Anion Gap 6 mmol/L (8-16); Aspartate Amino Transferase 28 U/L (14-36); Bilirubin,Total 0.4 mg/dL (0.2-1.3); Blood Urea Nitrogen 15 mg/dL (7-17); Calcium 9.7 mg/dL (8.4-10.2); Carbon Dioxide 30 mmol/L (22-30); Chloride 98 mmol/L (98-107); Cholesterol 219 mg/dL (0-200); Estimated Glomerular Filt Rate > 60; Glucose 101 mg/dL (65-110); HDL Direct 63 mg/dL; Potassium 4.6 mmol/L (3.4-5.0); Sodium 134 mmol/L (137-145); Triglycerides 152 mg/dL (<150)
[2021-04-15 10:15] LABS: LDL Cholesterol Direct 113 mg/dL
[2021-04-15 11:09] LABS: Folic Acid 19.8 ng/mL (2.76->20)
== END 2021-04-15 09:39 | disposition home or self-care (01) ==
PROVIDERS: PCP Family Medicine; Visit Provider Family Medicine
DX: R53.83 Other fatigue (principal); E78.5 Hyperlipidemia, unspecified
CPT/HCPCS: 36415; 80053; 80061; 81003; 82607; 82746; 84443; 85027

== ENCOUNTER 2021-07-01 00:21 | Day surgery (SDC) | payer MEDICARE, SELFPAY ==
[2021-05-14 11:22] VITALS: BMI 31.1
[2021-06-25 13:15] VITALS: BMI 31.1
[2021-07-01 12:30] VITALS: BP 120/84; PULSE 98; RESP 16; TEMP 36.9; O2SAT 98
[2021-07-01] MEDS: LACTATED RINGERS 1,000 ML 150 ML IV CONT (12:32)
--- NOTE | 2021-07-01 12:38 | WPDANESEPPF ---
Anes - Initial Pre Proc Eval Procedure: Operation Date: 07/01/21 13:30 Proposed Procedures p Screening Colonoscopy - Joseluis Broderick MD Date/Time: 07/01/21 12:38 Surgeon: Joseluis Broderick MD Pre Op Diagnosis: hx of colon polyps Patient Data Age: 66 Gender: F Height: 1.57 m Weight: 76.6 kg Last Vital Signs Temp 36.9 C 07/01/21 12:30 Pulse 98 07/01/21 12:30 Resp 16 07/01/21 12:30 BP 120/84 07/01/21 12:30 Pulse Ox 98 07/01/21 12:30 Allergies Allergy/AdvReac Type Severity Reaction Status Date / Time No Known Allergies Allergy Mild Verified 07/01/21 12:28 Home Medications Medication Instructions Recorded Confirmed Type multivitamin 1 tablet PO DAILY 06/26/20 07/01/21 History venlafaxine 150 mg 150 mg PO QAM #90 cap 11/19/20 07/01/21 Rx capsule,extended release 24 hr cholecalciferol (vitamin D3) 125 125 mcg PO DAILY 03/20/21 07/01/21 History mcg (5,000 unit) capsule alendronate 70 mg tablet 70 mg PO WEEKLY #14 tablet 06/03/21 07/01/21 Rx biotin 10 mg PO DAILY 07/01/21 07/01/21 History lactobacillus combination no.8 3,000,000 cell PO DAILY 07/01/21 07/01/21 History [Adult Probiotic] Patient hx anesthesia problems: none Family hx anesthesia problems: none Results Review: All pre-operative results and documents have been reviewed as part of the pre-operative evaluation. [facility] Past Medical History Medical History Adenomatous colon polyp Depression GERD (gastroesophageal reflux disease) Surgical History Surgical History History of bunionectomy History of cholecystectomy History of toe surgery hammer toe S/P carpal tunnel release Status post fusion of joint of finger Status post laparoscopic Bárbara fundoplication Laparoscopic Bárbara fundoplication, placement of right chest tube Social History Social History Smoking status: Never smoker Second hand tobacco smoke exposure: No Alcohol intake: current Drinks per week: 1 Alcohol use details: 1 DRINK/WEEK Substance use: current Substance use type: does not use Living arrangements: with family Additional living arrangements comments: 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 Informed Consent: The patient's anesthetic plan and its attendant risks and benefits were discussed with the patient/family/POA. Questions were solicited and answers provided to the satisfaction of the patient/family/POA.
--- NOTE | 2021-07-01 12:47 | PM.HPGS ---
History of Present Illness History of Present Illness Consent: Risks, benefits, and alternatives have been discussed and questions answered. Patient agrees to proceed with procedure. Chief complaint: hx of colon polyps Narrative: Jillian Echeverria is a 66 year old female with colon polyp about 5 years ago. Review of Systems Constitutional: Constitutional: Denies headache(s) and Denies weakness Eyes: Eyes: Denies blurry vision ENT: Reports Normal hearing present, Denies headache(s) and Denies neck pain Cardiovascular: Cardiovascular: Denies chest pain and Denies dyspnea Respiratory: Respiratory: Denies dyspnea Gastrointestinal: Gastrointestinal: Reports no additional gastrointestinal complaints Genitourinary: Genitourinary: Denies dysuria Musculoskeletal: Musculoskeletal: Denies neck pain Integumentary/Breasts: Skin/Breast: Denies dry skin Neurologic: Reports Normal hearing present, Denies headache(s) and Denies weakness Psychiatric: Psychiatric: Denies anxiety Endocrine: Endocrine: Denies change in body appearance Hematologic/Lymphatic: Hematologic/Lymphatic: Denies easy bleeding Allergic/Immunologic: Allergic/Immunologic: Denies urticaria PMFSH Past Medical History Medical History Adenomatous colon polyp Depression GERD (gastroesophageal reflux disease) Surgical History Surgical History History of bunionectomy History of cholecystectomy History of toe surgery hammer toe S/P carpal tunnel release Status post fusion of joint of finger Status post laparoscopic Bárbara fundoplication Laparoscopic Bárbara fundoplication, placement of right chest tube Social History Social History Smoking status: Never smoker Second hand tobacco smoke exposure: No Alcohol intake: current Drinks per week: 1 Alcohol use details: 1 DRINK/WEEK Substance use: current Substance use type: does not use Living arrangements: with family Additional living arrangements comments: 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 Gender identity (if verbalized by the patient): Female Spiritual care concerns: No Meds Home Medications and Allergies Home Medications Medication Instructions Recorded Confirmed Type multivitamin 1 tablet PO DAILY 06/26/20 07/01/21 History venlafaxine 150 mg 150 mg PO QAM #90 cap 11/19/20 07/01/21 Rx capsule,extended release 24 hr cholecalciferol (vitamin D3) 125 125 mcg PO DAILY 03/20/21 07/01/21 History mcg (5,000 unit) capsule alendronate 70 mg tablet 70 mg PO WEEKLY #14 tablet 06/03/21 07/01/21 Rx biotin 10 mg PO DAILY 07/01/21 07/01/21 History lactobacillus combination no.8 3,000,000 cell PO DAILY 07/01/21 07/01/21 History [Adult Probiotic] Allergies Allergy/AdvReac Type Severity Reaction Status Date / Time No Known Allergies Allergy Mild Verified 07/01/21 12:28 Vital Signs Vital Signs - 24 hr 07/01/21 12:30 Temperature 98.5 F Pulse Rate 98 Respiratory Rate 16 Blood Pressure 120/84 Pulse Oximetry 98 Exam Const: General: comfortable and no acute distress HENMT: General nose exam: Normal nares present Eyes: General: appearance normal, both eyes and all related structures Neck: Neck: no JVD Resp: Auscultation: clear to auscultation bilaterally Cardio: Rate: regular rate Rhythm: regular rhythm GI: Inspection: non-distended GI Palp: Yes Soft to palpation Skin: General skin exam: normal color Neuro: General: gait normal Speech: normal speech Extrem: General: normal to inspection Psych: Mental Status: mental status grossly normal Assessment and Plan Assessment and plan (1) Adenomatous colon polyp: Code(s): D12.6 - Benign neoplasm of colon, unspecified Status: Acute Assessment and Plan: colonoscopy
[2021-07-01 13:09] VITALS: BP 148/72; PULSE 84; RESP 16; O2SAT 100
[2021-07-01 13:19] VITALS: BP 109/76; PULSE 81; RESP 18; O2SAT 100
[2021-07-01 13:29] VITALS: BP 131/92; PULSE 82; RESP 20; O2SAT 100
== END 2021-07-01 13:47 | disposition home or self-care (01) ==
PROVIDERS: PCP Family Medicine; Visit Provider Internal Medicine Gastroenterology
PROC: 0DJD8ZZ Inspection of Lower Intestinal Tract, Via Natural or Artificial Opening Endoscopic (ICD-10-PCS; CPT 45378; principal; 2021-07-01 13:30)
DX: Z12.11 Encounter for screening for malignant neoplasm of colon (principal); Z86.010 Personal history of colon polyps; K57.30 Diverticulosis of large intestine without perforation or abscess without bleeding; K64.8 Other hemorrhoids; K21.9 Gastro-esophageal reflux disease without esophagitis; F32.9 Major depressive disorder, single episode, unspecified; Z90.49 Acquired absence of other specified parts of digestive tract; E66.9 Obesity, unspecified; Z68.30 Body mass index [BMI] 30.0-30.9, adult
CPT/HCPCS: G0105; J2704; J7120

== ENCOUNTER 2021-07-16 15:32 | Outpatient (CLI) | payer MEDICARE, SELFPAY ==
[2021-07-21 08:19] LABS: Tissue Transglutaminase IgG Ab <1.0 U/mL (<15.0)
== END 2021-07-16 15:33 | disposition home or self-care (01) ==
LOC: ANHLAB 15:37
PROVIDERS: PCP Family Medicine; Visit Provider Nurse Practitioner Family
DX: R19.7 Diarrhea, unspecified (principal)
CPT/HCPCS: 36415; 83516

== ENCOUNTER 2021-08-06 10:00 | Outpatient (CLI) | payer MEDICARE, SELFPAY ==
--- NOTE | ~2021-08-06 | MM_ITS ---
EXAMINATION: MM screening gokul BI w damon HISTORY: Screening mammogram TECHNIQUE: Craniocaudal and mediolateral oblique 3-D tomosynthesis images were obtained and synthetic 2-D images were generated. CAD analysis was submitted and interpreted. COMPARISON: No prior mammogram is available for comparison at this institution. BREAST PARENCHYMAL COMPOSITION: There are scattered areas of fibroglandular density. FINDINGS: There is no evidence of suspicious mass, calcification, or architectural distortion to sugg est malignancy in either breast. There has been no suspicious interval change. IMPRESSION: 1. No mammographic evidence of malignancy. 2. Recommend routine screening mammography in one year. BI-RADS Category 1: Negative Reviewed, dictated and finalized at location A.
== END 2021-08-06 10:01 | disposition home or self-care (01) ==
PROVIDERS: PCP Family Medicine; Visit Provider Family Medicine
DX: Z12.31 Encounter for screening mammogram for malignant neoplasm of breast (principal)
CPT/HCPCS: 77063; 77067

== ENCOUNTER 2021-09-17 16:44 | Outpatient (CLI) | payer MEDICARE, SELFPAY ==
[2021-09-17 17:13] LABS: Appearance Urine Slightly Cloudy (Clear); Bilirubin Urine Negative (Negative); Blood Urine 3+ (Negative); Color Urine Yellow (Yellow); Glucose Urine UA Negative (Negative); Ketones Urine Negative (Negative); Leukocyte Esterase Ur 3+ LEU/UL (Negative); Nitrate Urine Negative (Negative); Protein Urine Negative (Negative); Specific Grav Ur <= 1.005 (1.001-1.035); Urobilinogen Urine 0.2 mg/dL (<2.0)
[2021-09-17 17:17] LABS: Bacteria Urine Trace /hpf; Squamous Epithelial Cell Urine Occasional /hpf (Few); WBC Urine >75 /hpf
[2021-09-17 17:18] LABS: Add Urine Microscopic? YES
== END 2021-09-17 16:45 | disposition home or self-care (01) ==
LOC: ANHLAB 16:50
PROVIDERS: PCP Family Medicine; Visit Provider Physician Assistant
DX: N39.0 Urinary tract infection, site not specified (principal); R30.0 Dysuria
CPT/HCPCS: 81001; 87077; 87086; 87186

== ENCOUNTER 2021-11-05 14:17 | Outpatient (CLI) | payer MEDICARE, SELFPAY ==
--- NOTE | ~2021-11-05 | XR_ITS ---
EXAM: XR shoulder LT min 2V DATE: 11/05/2021 14:41 HISTORY: M25.512 - Pain in left shoulder NO KNOWN INJURY . COMPARISON: None available. FINDINGS: Normal mineralization. No fracture or dislocation. No lytic or blastic lesion. Moderate AC joint hypertrophy, otherwise the joint spaces are maintained spaces are maintained. No erosion or pe riosteal change. Soft tissues within normal limits. Incidental note of indistinct pulmonary vascular margins. IMPRESSION: No acute finding in the left shoulder. Moderate AC joint hypertrophy. Incidental note of vascular congestion/mild interstitial edema. Reviewed, dictated and finalized at location K. IMPRESSION: No acute finding in the left shoulder. Moderate AC joint hypertroph y. Incidental note of vascular congestion/mild interstitial edema.
== END 2021-11-05 14:18 | disposition home or self-care (01) ==
PROVIDERS: PCP Family Medicine; Visit Provider Physician Assistant
DX: M25.512 Pain in left shoulder (principal)
CPT/HCPCS: 73030

== ENCOUNTER 2021-12-05 07:55 | Outpatient (CLI) | payer MEDICARE, SELFPAY ==
--- NOTE | ~2021-12-05 | CT_ITS ---
EXAMINATION: CT abdomen pelvis w con INDICATION: Bloating, generalized abdominal pain TECHNIQUE: Computed tomographic images of the abdomen and pelvis were obtained after the administrati on of 100 cc of Omnipaque 350 intravenous contrast. The dose-length product (DLP) was 809.30 mGy-cm. Automated exposure control and iterative reconstruction technique were employed. COMPARISON: 08/30/2019 FINDINGS: Minimal dependent atelectasis is present in the lung bases. The heart size is normal. There appear to be changes of Bárbara fundoplication. The gallbladder is surgically absent. There is mild e nlargement of the common bile duct and central intrahepatic ducts which is likely due to post cholecy stectomy state. There is a 1.8 cm cyst of the liver. The spleen, pancreas, and adrenal glands are nor mal. Hypoattenuating lesions in the kidneys, measuring up to 4 mm on the right, are too small to karen acterize but likely represent cysts. There is a moderate volume of liquid stool in the colon. The juve endix is normal. No pathologically enlarged abdominal or pelvic lymph nodes are identified. There is no free intraperitoneal gas or evidence of bowel obstruction. There is mild fat stranding surrounding normal-sized lymph nodes of the small bowel mesentery. Tubal ligation clips are noted. There is mild lumbar spondylosis. Colonic diverticulosis is present without evidence of diverticulitis. IMPRESSION: 1. Moderate volume of liquid stool in the colon, likely enteritis. While fat stranding surrounding no rmal-sized lymph nodes of the small bowel mesentery is likely reactive. Reviewed, dictated and finalized at location A. IMPRESSION: 1. Moderate volume of liquid stool in the colon, likely enteritis. While fat st randing surrounding normal-sized lymph nodes of the small bowel mesentery is li lesli reactive.
[2021-12-05 08:27] LABS: Estimated Glomerular Filt Rate > 60
== END 2021-12-05 07:56 | disposition home or self-care (01) ==
PROVIDERS: PCP Family Medicine; Visit Provider Nurse Practitioner Family
DX: R19.7 Diarrhea, unspecified (principal); R14.0 Abdominal distension (gaseous)
CPT/HCPCS: 74177; Q9967

== ENCOUNTER 2022-01-15 07:52 | Outpatient (CLI) | payer MEDICARE, SELFPAY ==
--- NOTE | 2022-02-15 21:43 | WPDSLEEPSTUD ---
Sleep Study Date of Study: 01/15/22 Ordering Provider: Darrian Hernandes MD Interpreting Physician: Ana Rosa Ashley MD Sleep Study Type: Split Polysomnogram Height: 1.6 m Weight: 77.564 kg Body Mass Index: 30.2 Neck Circumference (inches): 12.5 [place]: 14 Reason for Sleep Study Fatigue, excessive daytime sleepiness Sleep History Denise Echeverria is a 66-year-old female with complaints of excessive daytime sleepiness. This is been going on for years. She has difficulty falling asleep and staying asleep. She wakes up throughout the night. She does not wake up feeling short of breath. She occasionally wakes up at night with heartburn, belching or coughing. She frequently snores loudly. Others complain about it is so loud. She occasionally has trouble sleeping with a cold. She does not wake up gasping for breath at night. She rarely sweats excessively at night. She does not notice her heart pounding irregularly at night. She rarely falls asleep during the day. She does not fall asleep involuntarily or while driving. She does not experience muscle loss with strong emotion. She rarely has daytime difficulties due to excessive sleepiness. She does not feel paralyzed on waking or falling asleep. She does not have vivid dreamlike scenes on waking or falling asleep. She does not feel afraid to go to sleep. She denies having nightmares. She does not have dream recall. She rarely has racing thoughts. She occasionally feels sad or depressed. She rarely has anxiety. She does not have muscular tension. She rarely notices parts of her body jerking. She occasionally kicks at night. She occasionally has crawling and aching feelings in her legs. She occasionally has leg pain at night. She does not have morning jaw pain or grind her teeth at night. She occasionally is bothered by pain during the day and awakened by pain at night. She does not feel stiff in the morning, does not wake with sore achy muscles are pain in the neck and spine. She has memory problems and concentration difficulties. She takes antacids regularly. Normal bedtime is between 9:00 p.m. and 10:00 p.m., taking 10 minutes or sometimes up to an hour to fall asleep. She typically wakes up 1-2 times at night to urinate, toss and turn and try to return to sleep. On average it may take 5 minutes for her to fall asleep. These awakenings occur soon after falling asleep as well as in the middle of the night. She wakes between 6:00 a.m. and 9:00 a.m.. She estimates getting between 8 and 10 hours of sleep at night. She often stays in bed for 2-3 hours after waking. She does not take naps in the afternoon or evening. A short nap lasting 10 or 15 minutes is not refreshing. She is usually drowsy for an hour after waking. She feels better in the afternoon compared to other times of day. Habits: Never smoked tobacco. Caffeine - she drinks tea 5-6 cups per day. No alcohol or recreational drugs. [facility] Past Medical History Medical History Adenomatous colon polyp Depression Gas bloat syndrome GERD (gastroesophageal reflux disease) Irritable bowel syndrome with diarrhea Surgical History Surgical History History of bunionectomy History of cholecystectomy History of toe surgery hammer toe S/P carpal tunnel release Status post fusion of joint of finger Status post laparoscopic Bárbara fundoplication Laparoscopic Bárbara fundoplication, placement of right chest tube Social History Social History Smoking status: Never smoker Second hand tobacco smoke exposure: No Alcohol intake: current Drinks per week: 1 Alcohol use details: 1 DRINK/WEEK Substance use: current Substance use type: does not use Additional living arrangements comments: 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
[2022-02-15 22:05] VITALS: BMI 30.2
== END 2022-01-16 06:47 | disposition home or self-care (01) ==
LOC: ANHCSM 07:53
PROVIDERS: PCP Family Medicine; Visit Provider Internal Medicine Cardiovascular Disease
DX: G47.33 Obstructive sleep apnea (adult) (pediatric) (principal); G47.10 Hypersomnia, unspecified; G47.61 Periodic limb movement disorder; Z68.30 Body mass index [BMI] 30.0-30.9, adult
CPT/HCPCS: 95811

== ENCOUNTER 2022-03-11 08:57 | Outpatient (CLI) | payer MEDICARE, SELFPAY ==
[2022-03-11 09:32] LABS: Basophils Percent Auto 0.8 % (0.2-1.2); Eosinophils Absolute Auto 0.1 K/mm3 (0-0.3); Eosinophils Percent Auto 1.2 % (0-4.4); Hematocrit 41.3 % (37.0-47.0); Hemoglobin 13.3 g/dL (12.0-15.0); Immature Granulocyte Absolute 0.01 K/mm3 (0.00-0.031); Immature Granulocyte Percent A 0.2 % (0-0.5); Lymphocytes Absolute Auto 1.69 K/mm3 (0.9-3.2); Mean Corpuscular HGB Conc 32.2 g/dl (32-36); Mean Corpuscular Hemoglobin 31.1 pg (26-34); Mean Corpuscular Volume 96.7 fl (80-100); Mean Platelet Volume 8.3 fl (7.4-10.4); Monocytes Absolute Auto 0.4 K/mm3 (0.1-0.6); Monocytes Percent Auto 7.8 % (2.6-8.5); Neutrophils Absolute Auto 2.9 K/mm3 (1.3-6.7); Platelet Count Result 313 k/mm3 (150-375); Red Blood Count 4.27 M/mm3 (4.2-5.4); Red Cell Distribution Width 13.2 % (11.5-14.5); White Blood Count 5.1 K/mm3 (4.5-10.0)
[2022-03-11 09:37] LABS: Appearance Urine Clear (Clear); Bilirubin Urine Negative (Negative); Blood Urine Trace-intact (Negative); Color Urine Yellow (Yellow); Glucose Urine UA Negative (Negative); Ketones Urine Trace mg/dL (Negative); Leukocyte Esterase Ur Negative LEU/UL (NEGATIVE); Nitrate Urine Negative (Negative); Protein Urine Trace mg/dL (Negative); Specific Grav Ur 1.025 (1.001-1.035); Urobilinogen Urine 0.2 mg/dL (<2.0); pH Urine 5.5 (5.0-9.0)
[2022-03-11 09:43] LABS: Alanine Aminotransferase 26 U/L (6-35); Albumin Level 4.4 g/dL (3.5-5.1); Alkaline Phosphatase 114 U/L (38-126); Anion Gap 9 mmol/L (8-16); Aspartate Amino Transferase 28 U/L (14-36); Bilirubin,Total 0.4 mg/dL (0.2-1.3); Blood Urea Nitrogen 19 mg/dL (7-17); Calcium 9.3 mg/dL (8.4-10.2); Carbon Dioxide 28 mmol/L (22-30); Chloride 104 mmol/L (98-107); Estimated Glomerular Filt Rate > 60; Glucose 102 mg/dL (65-110); Potassium 4.5 mmol/L (3.4-5.0); Sodium 141 mmol/L (137-145)
[2022-03-11 10:03] LABS: Mucus Urine Rare /lpf; Renal Epithelial Cells Urine Rare /hpf (None Seen); Squamous Epithelial Cell Urine Occasional /hpf (Few); WBC Urine 0-3 /hpf (0-3)
[2022-03-11 10:11] LABS: Thyroid Stimulating Hormone 0.152 uIU/mL (0.465-4.680)
[2022-03-11 10:20] LABS: Add Urine Microscopic? YES
[2022-03-11 10:27] LABS: Vitamin D 25 Hydroxy 34.8 ng/mL
== END 2022-03-11 08:58 | disposition home or self-care (01) ==
PROVIDERS: PCP Family Medicine; Visit Provider Physician Assistant
DX: M81.0 Age-related osteoporosis without current pathological fracture (principal); R35.0 Frequency of micturition; N39.3 Stress incontinence (female) (male); R53.83 Other fatigue; R06.09 Other forms of dyspnea
CPT/HCPCS: 36415; 80053; 81001; 82306; 84443; 85025

== ENCOUNTER 2022-05-06 15:16 | Outpatient (CLI) | payer MEDICARE, SELFPAY ==
[2022-05-06 16:33] LABS: Thyroid Stimulating Hormone 0.765 uIU/mL (0.465-4.680)
[2022-05-06 17:25] LABS: Free T4 Free Thyroxine 0.79 ng/mL (0.78-2.19)
== END 2022-05-06 15:17 | disposition home or self-care (01) ==
PROVIDERS: PCP Family Medicine; Visit Provider Family Medicine
DX: R79.89 Other specified abnormal findings of blood chemistry (principal); E05.90 Thyrotoxicosis, unspecified without thyrotoxic crisis or storm
CPT/HCPCS: 36415; 84439; 84443

== ENCOUNTER 2023-02-04 11:35 | Outpatient (CLI) | payer MEDICARE, SELFPAY ==
--- NOTE | ~2023-02-04 | XR_ITS ---
EXAMINATION: XR abdomen/kub 1V DATE: 02/04/2023 11:52 INDICATION: Unspecified fecal incontinence. TECHNIQUE: A supine view of the abdomen on 2 radiographs was obtained. COMPARISON: CT abdomen and pelvis 12/05/2021 FINDINGS: There are no dilated loops of bowel. There is a moderate volume of stool in the colon. Surg ical clips in the right upper quadrant are likely from cholecystectomy. Tubal ligation clips are note d. There are phleboliths in the pelvis. IMPRESSION: 1. Normal bowel gas pattern. Reviewed, dictated and finalized at location E.
== END 2023-02-04 11:36 | disposition home or self-care (01) ==
PROVIDERS: PCP Family Medicine; Visit Provider Nurse Practitioner Family
DX: R32 Unspecified urinary incontinence (principal)
CPT/HCPCS: 74018

== ENCOUNTER 2023-06-25 08:20 | Outpatient (CLI) | payer MEDICARE, SELFPAY ==
[2023-06-25 09:04] LABS: Appearance Urine Clear (Clear); Bilirubin Urine Negative (Negative); Blood Urine Negative (Negative); Color Urine Yellow (Yellow); Glucose Urine UA Negative (Negative); Ketones Urine Negative (Negative); Leukocyte Esterase Ur Negative LEU/UL (NEGATIVE); Nitrate Urine Negative (Negative); Protein Urine Negative (Negative); Specific Grav Ur 1.004 (1.001-1.035); Urobilinogen Urine 0.2 mg/dL (<2.0)
[2023-06-25 09:05] LABS: Add Urine Microscopic? NO
[2023-06-25 09:18] LABS: Alanine Aminotransferase 18 U/L (6-35); Albumin Level 4.3 g/dL (3.5-5.1); Alkaline Phosphatase 104 U/L (38-126); Anion Gap 6 mmol/L (8-16); Aspartate Amino Transferase 24 U/L (14-36); Bilirubin,Total 0.4 mg/dL (0.2-1.3); Blood Urea Nitrogen 19 mg/dL (7-17); Calcium 9.8 mg/dL (8.4-10.2); Carbon Dioxide 30 mmol/L (22-30); Chloride 104 mmol/L (98-107); Cholesterol 191 mg/dL (0-200); Estimated Glomerular Filt Rate > 60; Glucose 101 mg/dL (65-110); HDL Direct 62 mg/dL; Potassium 4.4 mmol/L (3.4-5.0); Sodium 140 mmol/L (137-145); Triglycerides 127 mg/dL (<150)
[2023-06-25 09:28] LABS: LDL Cholesterol Direct 114 mg/dL
== END 2023-06-25 08:21 | disposition home or self-care (01) ==
PROVIDERS: PCP Family Medicine; Visit Provider Family Medicine
DX: E78.5 Hyperlipidemia, unspecified (principal); R53.83 Other fatigue; Z00.00 Encounter for general adult medical examination without abnormal findings
CPT/HCPCS: 36415; 80053; 80061; 81003; 84443

== ENCOUNTER 2023-10-29 09:38 | Outpatient (CLI) | payer MEDICARE, SELFPAY ==
--- NOTE | ~2023-10-29 | PE_ITS ---
EXAMINATION: PET skull to mid thigh DATE: 10/29/2023 11:42 INDICATION: Right lung upper lobe nodule. TECHNIQUE: Blood glucose level was 95 mg/dL. 10.012 mCi of 18-fluorodeoxyglucose (18-FDG) was adminis tered i.v. Low dose computed tomography (CT) images were acquired from the base of the brain to the p roximal thighs for attenuation correction and anatomic localization. Automated exposure control was e mployed. Dose-length product (DLP) was 1041 mGy-cm. Positron emission tomography (PET) images were ac quired in the same distribution. COMPARISON: CT abdomen and pelvis 12/05/2021 FINDINGS: Head/neck: There are no pathologically enlarged lymph nodes. Chest: There is an 11 mm nodule with maximum SUV of 4.3 in right lung upper lobe. There is mild atele ctasis bilaterally. No pleural effusion. Cardiomegaly is noted. No pericardial effusion. There is a s mall sliding hiatal hernia. Abdomen/pelvis/proximal thighs: There is a 15 mm cyst in the liver. There are changes of cholecystect johan. The spleen, pancreas, adrenal glands, and kidneys are normal. There is diverticulosis of the col on without evidence of diverticulitis. The appendix is normal. There are no pathologically enlarged l ymph nodes. There is increased activity in a normal-sized left inguinal lymph node, likely reactive. There is no free intraperitoneal fluid. IMPRESSION: 1. 11 mm nodule in right lung upper lobe with increased activity which may be granulomatous disease o r primary bronchogenic carcinoma. CT-guided biopsy is recommended. Reviewed, dictated and finalized at location E. IMPRESSION: 1. 11 mm nodule in right lung upper lobe with increased activity which may be g ranulomatous disease or primary bronchogenic carcinoma. CT-guided biopsy is rec ommended.
[2023-10-29 09:51] LABS: Glucose Point of Care 95 mg/dl (65-105)
== END 2023-10-29 09:39 | disposition home or self-care (01) ==
LOC: ANHIMG 09:40
PROVIDERS: PCP Family Medicine; Visit Provider Physician Assistant Medical
DX: R91.1 Solitary pulmonary nodule (principal)
CPT/HCPCS: 78815; A9552

== ENCOUNTER 2023-11-10 09:22 | Outpatient (CLI) | payer MEDICARE, SELFPAY ==
[2023-11-10] VITALS (10 sets, daily range): BP systolic 114–153; BP diastolic 66–88; PULSE 65–79; RESP 14–20; TEMP 36.3; O2SAT 98–100
--- NOTE | ~2023-11-10 | XR_ITS ---
XR chest 1V portable Ordering provider: Surya Bautista MD History: 68 years Female with . Post Image Guided Lung Biopsy . Comparison: November 10, 2023 FINDINGS: MEDIASTINUM: The cardiac silhouette is not enlarged. LUNGS: No infiltrates, or effusions. Tiny right apical pneumothorax is highly suggestive. Follow-up a dvised. The opacity in the right apical area is unchanged. OTHER: No free air under the diaphragm. Degenerative changes of the spine. Healing fracture in the left third rib. IMPRESSION: opacity in the right apical area is unchanged. Tiny right apical pneumothorax is highly suggestive. Follow-up advised. No other acute cardiopulmonary pathology. Reviewed, dictated and finalized at location A.
--- NOTE | ~2023-11-10 | XR_ITS ---
EXAMINATION: XR chest 1V portable DATE: 11/10/2023 15:01 INDICATION: Status post percutaneous right lung biopsy TECHNIQUE: frontal view of the chest was obtained. COMPARISON: Chest radiograph dated 11/10/2023 at 12:59 PM FINDINGS: Unchanged tiny pneumothorax at the right apex. Probable airspace opacity medial right apex correspond ing to the biopsied nodule and likely small amount of surrounding pulmonary hemorrhage and/or atelect asis. No other airspace opacities, pulmonary edema, pleural effusion or left-sided pneumothorax. The cardiomediastinal silhouette is normal. IMPRESSION: 1. No interval change in a tiny right apical pneumothorax and small amount of hemorrhage surrounding the biopsied right apical nodule. Reviewed, dictated and finalized at location A. IMPRESSION: 1. No interval change in a tiny right apical pneumothorax and small amount of h emorrhage surrounding the biopsied right apical nodule.
--- NOTE | ~2023-11-10 | XR_ITS ---
XR chest 1V 11/10/2023 11:50 Indication: Status post right upper lobe biopsy Procedure: AP view of the chest Comparison: CT dated 11/10/[address] dated 10/29/2023 Findings: There is right apical mass. No pneumothorax identified post biopsy. Heart size normal. Left lung clear. Impression: 1: No pneumothorax identified post procedure. 2: Right apical mass. Cannot exclude bronchogenic carcinoma. Recommend correlation with pathology re port. Reviewed, dictated and finalized at location B. Impression: 1: No pneumothorax identified post procedure. 2: Right apical mass. Cannot exclude bronchogenic carcinoma. Recommend correla tion with pathology report.
--- NOTE | ~2023-11-10 | CT_ITS ---
EXAMINATION: CT biopsy lung w/imaging DATE: 11/10/2023 12:21 INDICATION: Right upper lobe nodule TECHNIQUE: The procedure including the risks and benefits was discussed with the patient. Risks discu ssed included infection, approximately 1/20 risk of symptomatic hemorrhage beyond mild hemoptysis, ap proximately 1/3 risk of pneumothorax, and approximately 1/10 risk of pneumothorax severe enough to wa rrant chest tube placement. The patient understood the risks and agreed to proceed. The patient was p laced prone. The skin overlying the posterior right upper lung was prepped and draped in sterile fas hion. Anesthetic was administered with 1% lidocaine subcutaneously. A 19 gauge outer needle was adv anced under CT guidance to the lesion of interest. A 20 gauge core biopsy needle was then used to obt ain 4 core biopsy specimens. The needle was removed and the entry site was cleaned and dressed. Ther e were no immediate complications. The dose-length product was 135.80 mGy-cm. FINDINGS: CT images demonstrate the outer needle tip adjacent to a 1.3 cm spiculated nodule at the ri t apex. IMPRESSION: 1. Successful CT-guided biopsy of a 1.3 cm spiculated right apical nodule. Reviewed, dictated and finalized at location A.
[2023-11-10 10:26] LABS: Mean Platelet Volume 8.4 fl (7.4-10.4); Platelet Count Result 283 k/mm3 (150-375)
[2023-11-10 10:34] LABS: INR 0.9; Prothrombin Time 12.5 Seconds (11.1-14.7)
== END 2023-11-10 15:40 | disposition home or self-care (01) ==
PROVIDERS: PCP Family Medicine; Visit Provider Radiology Diagnostic Radiology
PROC: BB24ZZZ Computerized Tomography (CT Scan) of Bilateral Lungs (ICD-10-PCS; CPT 32408; principal; 2023-11-10 11:00)
DX: Z01.818 Encounter for other preprocedural examination (principal); C34.11 Malignant neoplasm of upper lobe, right bronchus or lung; R91.1 Solitary pulmonary nodule
CPT/HCPCS: 32408; 36415; 71045; 85049; 85610; 88305

== ENCOUNTER 2024-01-21 08:33 | Outpatient (CLI) | payer MEDICARE, SELFPAY ==
--- NOTE | ~2024-01-21 | CT_ITS ---
Clinical Indication: Lung cancer CT Scan of the Chest with Contrast: Technique: Contiguous sections were acquired throughout the chest after intravenous administration of 75 cc of Omnipaque 350. Dose reduction technique was used on this scan by utilizing automated exposu re control and iterative reconstruction technique. The dose-length product (DLP) was 175.56 mGy-cm. COMPARISON: 10/29/2023 Findings: There is no evidence of any significant mediastinal, hilar or axillary lymphadenopathy. There is no f illing defect in the pulmonary arterial tree to suggest pulmonary embolus. There is no evidence of ao rtic dissection or aneurysm. There is no evidence of pleural or pericardial effusion. 1.5 cm spiculated lesion at the right lung apex is essentially stable from prior exam. No other pulmo nary abnormality seen. Images through the upper abdomen reveal no abnormalities. Impression: Stable 1.5 cm spiculated lesion at the right lung apex. Correlate with prior biopsy results. Reviewed, dictated and finalized at [facility]. Impression: Stable 1.5 cm spiculated lesion at the right lung apex. Correlate with prior bi opsy results.
[2024-01-21 08:57] LABS: Estimated Glomerular Filt Rate > 60
== END 2024-01-21 08:34 | disposition home or self-care (01) ==
PROVIDERS: PCP Family Medicine; Visit Provider Thoracic Surgery (Cardiothoracic Vascular Surgery)
DX: R91.1 Solitary pulmonary nodule (principal); C34.11 Malignant neoplasm of upper lobe, right bronchus or lung
CPT/HCPCS: 71260; Q9967

== ENCOUNTER 2024-06-27 08:46 | Outpatient (CLI) | payer MEDICARE, SELFPAY ==
--- NOTE | ~2024-06-27 | MM_ITS ---
EXAMINATION: MM screening gokul BI w damon HISTORY: Screening mammogram TECHNIQUE: Craniocaudal and mediolateral oblique 3-D tomosynthesis images were obtained and synthetic 2-D images were generated. CAD analysis was submitted and interpreted. COMPARISON: 08/06/2021, 06/22/2020 BREAST PARENCHYMAL COMPOSITION:Not Dense. The breasts are almost entirely fatty FINDINGS: No suspicious mass, calcification, or architectural distortion are identified in either bennie ast to suggest malignancy. There has been no suspicious interval change. IMPRESSION: No mammographic evidence of malignancy. Recommend routine screening mammography in one year. BI-RADS Category 1: Negative Reviewed, dictated and finalized at location .
--- NOTE | ~2024-06-27 | DEXA_ITS ---
Bone Density Report Name: BELKIS JONES Age: 69 Sex: Female Ethnicity: White Date of : 1955 Indication: postmenopausal; screening for osteoporosis; parental hip fracture; height loss; prior fracture; Referring Provider: LAKIA WONG Study: Bone densitometry was performed. Exam Date: June 27, 2024 Accession number: [id number] Bone Density: Region BMD T-score Z-score Classification AP Spine(L1-L4) 0.939 -1.0 1.1 Normal Femoral Neck (Left) 0.637 -1.9 -0.1 Osteopenia Total Hip (Left) 0.794 -1.2 0.3 Osteopenia Femoral Neck (Right) 0.678 -1.5 0.3 Osteopenia Total Hip (Right) 0.805 -1.1 0.4 Osteopenia Total Hip Mean 0.800 -1.2 0.4 Osteopenia World Health Organization criteria for BMD impression classify patients as: Normal (T-score at or above -1.0), Osteopenia (T-score between -1.0 and -2.5), or Osteoporosis (T-score at or below -2.5). 10-year Fracture Risk(1): Major Osteoporotic Fracture 26% Hip Fracture 6.2% Reported Risk Factors: [place] (), Neck BMD=0.637, BMI=30.5, previous fracture, parental fracture (1) FRAX(R) Version 3.08. Fracture probability calculated for an untreated patient. Fracture probability may be lower if the patient has received treatment. Previous Exams: Region Exam Age BMD T-score BMD Change BMD Change Date g/cm2 vs Baseline vs Previous Total Hip(Left) 06/27/2024 69 0.794 -1.2 -0.046 (-5.5%) -0.046 (-5.5%) 06/22/2020 65 0.840 -0.8 Total Hip(Right) 06/27/2024 69 0.805 -1.1 -0.027 (-3.2%) -0.027 (-3.2%) 06/22/2020 65 0.832 -0.9 *Denotes significance at 95% confidence level, LSC for Total Hip = 0.027 g/cm2 # Denotes dissimilar scan types or analysis methods Clinical Information Provided by Patient: Has had a low trauma fracture Parent has had a hip fracture Patient maximum height was 64 Menopause Age: 41 No regular weight bearing exercise Does not regularly consume dairy products Drinks caffeinated beverages Onset of menses at age 13 Number of children 1 Impression: The patient has low bone mass, based on the Left Femoral Neck T-score. The patient has an estimated ten-year risk of hip fracture of 6.2% and an estimated ten-year risk of major fracture of 26%, based on the WHO FRAX algorithm. The patient has risk factors, including: parental hip fracture, previous fracture. No significant bone loss was observed. Discussion: BONE DENSITY IS LOW AT ONE OR MORE SKELETAL SITES. THE PATIENT'S BMD AND CLINICAL RISK FACTORS CONTRIBUTE TO THIS PATIENT'S HIGH RISK OF FRACTURE. This patient's lowest T-score is low at one or more skeletal sites. It meets the World Health Organization's (WHO) criteria for ?low bone mass? (T-score between -1.0 and -2.5). The patient's 10-year risk of hip fracture and 10 year risk of a major osteoporotic fracture as calculated by FRAX exceeds the threshold where pharmacological therapy is recommended by the National Osteoporosis Foundation (NOF). However, all treatment decisions require clinical judgment and consideration of individual patient factors, including patient preferences, comorbidities, previous drug use, risk factors not captured in the FRAX model (e.g., frailty, falls, vitamin D deficiency, increased bone turnover, interval significant decline in bone density) and possible under or overestimation of fracture risk by FRAX. The patient should follow a healthful lifestyle (good nutrition with adequate calcium and vitamin D, and appropriate weight-bearing exercise). Follow-Up: Consider a repeat BMD and Vertebral Fracture Assessment (VFA) exam in 2 years or sooner if medically necessary, to reassess this patient's status. Reported by: JER on 06/27/2024 9:24:00 AM. Reviewed, dictated and finalized at location A. BENJAMIN
--- OUTSIDE RECORDS SUMMARY | 2024-06-27 09:37 | XMS_ITS | Patient Health Summary ---
Author Organization [facility] Address [address] [place] [address] Care Team Providers Care Hair Mixer Name Role Phone Rm Ansari MD Primary Care Provider [phone] Valentino Martinez MD Unavailable [phone] Note from [facility],non-owned Affiliates and Associated Physician Practices is amultiple site organization consisting of ambulatory clinics and hospital sitesin [place], [place], [place] and [place]. This disclosure is being madepursuant to the Care Everywhere program and may not contain all information available regarding this patient. Last updated 18.[facility] Allergies No known active allergies Medications * Be aware that medications may not be up to date on this document. Alwaysverify current medications with the patient. * famotidine (PEPCID) 20 MG tablet Take 20 mg by mouth once daily * loratadine (CLARITIN) 10 MG tablet Take 10 mg by mouth once daily * OMEPRAZOLE PO Take 40 mg by mouth once daily * oxybutynin CR 24hr (DITROPAN-XL) 5 MG tablet Take 5 mg by mouth once daily * Venlafaxine HCl (VENLAFAXINE ER 24HR) 150 MG tablet Take 150 mg by mouth daily with breakfast * MULTIPLE VITAMIN PO Take by mouth once daily * Calcium Carb-Cholecalciferol (CALCIUM 600 + D PO) * HYDROcodone-acetaminophen (NORCO) 5-325 MG tablet(Started 02/14/2020) Take 1 tablet by mouth every 6 hours as needed for Pain Social History Tobacco Use Types Packs/Day Years Used Date Smoking Tobacco: Never Smokeless Tobacco: Never Alcohol Use Standard Drinks/Week Comments Yes 1 (1 standard drink = 0.6 oz pur e alcohol) socially Sex and Gender Information Value Date Recorded Sex Assigned at Not on file Gender Identity Not on file Sexual Orientation Not on file Last Filed Vital Signs Vital Sign Reading Time Taken Comments Blood Pressure 130/88 02/14/2020 11:00 AM CDT Pulse 69 02/14/2020 11:00 AM CDT Temperature 36.3 C (97.4 F) 02/14/2020 10:35 AM CDT Respiratory Rate 23 02/14/2020 11:0 0 AM CDT Oxygen Saturation 95% 02/14/2020 11: 00 AM CDT Inhaled Oxygen Concentration - - Weight 85.6 kg (188 lb 12.8 oz) 02/14/2020 8:16 AM CDT Height 157.5 cm (5' 2 ) 02/14/2020 8:16 AM CDT Body Mass Index 34.53 02/14/2020 8:16 AM CDT Medical Devices Implanted Type Area Solar Electric Installer Device Identifier Shelf Expiration Date Model / Serial / Lot Graft Bone Tenfuse Pip 10d Algrf 18x2.7 Implanted:Qty: 1 on 02/14/2020 by Hortencia Monte MD at [facility] Right: Foot [employer] 06/09/2021 [id number] / / [id number] Description:Ref [id number] 2.0 X 14mm Screw Implanted:Qty: 1 on 02/14/2020 by Hortencia Monte MD at [facility] Right: Foot [id number] / / 2.4 X 12mm Screw Implanted:Qty: 1 on 02/14/2020 by Hortencia Monte MD at [facility] Right: Foot [id number] / / Explanted Type Area Solar Electric Installer Device Identifier Shelf Expiration Date Model / Serial / Lot Wire K 1.1mm 150mm Troc Blnt Fx Explanted:Qty: 1 on 02/14/2020 by Hortencia Monte MD at [facility] Right: Foot [employer] [id number] / / 2.0 X 10mm Screw Explanted:Qty: 1 on 02/14/2020 at [facility] Right: Foot [id number] / / [id number] Procedures * XR FOOT RIGHT 3VW OR MORE(Performed 02/14/2020) Performed for Post-operative state * OSTEOTOMY METATARSAL(Performed 02/14/2020) Performed for Hammer toe of right foot, Metatarsalgia of right foot * NH REPAIR OF HAMMERTOE,ONE(Performed 02/14/2020) Performed for Hammer toe of right foot, Metatarsalgia of right foot * SARS-COV-2 (COVID-19) IN HOUSE(Performed 02/11/2020) Performed for Preop examination * SARS-COV2 (COVID-19) PANEL (STL)(Performed 02/11/2020) Performed for Preop examination Results * XR FOOT 3+ VW RIGHT (02/14/2020 11:17 AM CDT) Anatomical Region Laterality Modality Ankle / Foot Radiographic Viviana ging 02/14/2020 4:37 PM CDT Narrative 02/14/2020 4:38 PM CDT 3 VIEWS RIGHT FOOT Indication: Right foot pain Findings: There is no displaced fracture or dislocation. There is no osseous destruction. Postoperative changes are noted in a pattern consistent with previous bunionectomy involving the great toe and previous osteotomy of the distal second metatarsal with 2 small cancellous screws and fusion across the proximal interphalangeal joint of the second toe. There is no hardware breakage or loosening. There is no osseous destruction. *Reading Radiologist: Sylvester Brasher on 02/14/2020 at 4:38 PM Procedure Note Sylvester Brasher MD - 02/14/2020 3 VIEWS RIGHT FOOT Indication: Right foot pain Findings: There is no displaced fracture or dislocation. There is no osseous destruction. Postoperative changes are noted in a pattern consistent with previous bunionectomy involving the great toe and previous osteotomy of the distal second metatarsal with 2 small cancellous screws and fusion across the proximal interphalangeal joint of the second toe. There is no hardware breakage or loosening. There is no osseous destruction. *Reading Radiologist: Sylvester Brasher on 02/14/2020 at 4:38 PM Shiv T Moise DPM DIAGNOSTIC IMAGING O RDERABLES * SARS-COV-2 (COVID-19) IN HOUSE (02/11/2020 8:26 AM CDT) COVID-19 PCR Not detected Not detected 02/11/2020 9:09 PM CDT [facility] MICROBIOLOGY Microbiology SPECIMEN FROM NASOPHARYNGEAL STRUCTURE / Unknown Collection / Unknown 02/11/2020 8:26 AM CDT 02/11/2020 8:26 AM CDT Narrative [facility] MICROBIOLOGY - 02/11/2020 9:09 PM CDT This nucleic acid amplification assay performance was validated by [facility]. This test has been authorized by the Food and Drug administration (FDA)under an Emergency Use Authorization (EUA). This test has been validated in accordance with the FDA's guidance document Policy for Diagnostic Testing in Laboratories Certified to perform High Complexity Testing under CLIA prior to Emergency Use Authorization for Coronavirus Disease-2019 during the Public Health Emergency issued on June 18, 2019. FDA independent review of this validation is pending. This test is only authorized for the duration of time the declaration that circumstances exist justifying the authorization of emergency use of in vitro diagnostic tests for detection of SARS-CoV-2 virus and/or diagnosis of COVID-19 infection under section 564(b)(1) of the Act, 21 U.S.C 360bbb-3 (b)(1), unless the authorization is terminated or revoked sooner. Fact Sheets for this EUA assay are available upon request. Hortencia Monte MD LAB - MICROBIOLOGY O RDERABLES [facility] MICROBIOLOGY [address] [place], [address] [phone] Care Teams Hair Mixer Relationship Specialty Start Date End Date Rm Ansari MD PCP - General 02/27/20 Valentino Martinez MD [address] [place] [address] Family Medicine 02/27/20
--- OUTSIDE RECORDS SUMMARY | 2024-06-27 09:38 | XMS_ITS | CONTINUITY OF CARE DOCUMENT ---
Author Name bonnie nicole Address Unknown Organization [facility] Address [id number] [place] [address] [address] [place] [address] Phone [phone] Care Team Providers Care Splash Line Operator Name Role Phone bonnie nicole Unavailable Unavailable INSURANCE PROVIDERS Payer name Policy type / Coverage type [place] red republic[employer] ID [id number]- OPEN ACCESS/PPO Other [id number]
--- OUTSIDE RECORDS SUMMARY | 2024-06-27 09:38 | XMS_ITS ---
Author Organization [facility] [address] Address [address] [place] [address] Care Team Providers Care Rn Geriatric Name Role Phone Valentino Martinez MD Primary Care Provider Jessee Montoya MD PhD Unavailable Hai Marley MD Unavailable Active Problems Patient Care Coordination No te Formatting of this note migh t be different from the original. Referring provider: Dr. Jessee Montoya Ms. Jillian Echeverria is a 68-year-old with lung cancer. She initially presented after a fall in August. At this time she underwent a CT of the head and cervical spine which noted a spiculated nodule measuring 1.5 x 1 cm in the right upper lobe. On 10/29/2023 the patient underwent a PET scan which noted a right upper lobe lung nodule measuring 1.2 cm with a maximum SUV of 8.3. There was no FDG avid hilar or mediastinal lymph nodes. There was no evidence of metastatic disease. On 11/10/20[address] the patient underwent a CT-guided biopsy. Final pathology showed a moderately differentiated adenocarcinoma. Patient has a history of a laparoscopic Bárbara fundoplication that was complicated by a pneumothorax and had a chest tube placed in the past. She is a never smoker. She is scheduled for pulmonary function testing on 12/25/2023. Patient presents today for further surgical evaluation. Problem Noted Date Diagnosed Date NSCLC with EGFR mutation 03/29/2024 Cancer of upper lobe of right lung 02/03/2024 Malignant neoplasm of upper lobe of right lung 0 11/30/2023 Asymmetric septal hypertrophy 12/24/2021 GARNICA (dyspnea on exertion) 12/24/2021 SOB (shortness of breath) 12/24/2021 Hypersomnolence 12/24/2021 Snoring 12/24/2021 LVH (left ventricular hypertrophy) 12/24/2021 Depression 05/23/2019 Fatigue 05/23/2019 Bilateral carpal tunnel syndrome 05/23/2019 Carpal tunnel syndrome of right wrist 01/21/2019 Overview (01/21/2019): Added automatically from request for surgery [id number] Imbalance 12/28/2018 Assessment & Plan (12/28/2018 9:09 AM CDT): Discussed balance activities such as yoga. No evidence of inner ear pathology such as BPPV today. Ear itching 12/28/2018 Assessment & Plan (12/28/2018 9:10 AM CDT): 50/50 alcohol and vinegar mix as needed. Keep ears dry. Tinnitus, bilateral 12/07/2018 Arthritis 11/03/2018 Overview (11/03/2018): Added automatically from request for surgery [id number] Diverticulosis of colon 01/20/2018 Hiatal hernia 01/20/2018 Polyp of colon 01/20/2018 History of colon polyps 12/09/2017 Overview (12/09/2017): Added automatically from request for surgery [id number] Gastroesophageal reflux disease 12/09/2017 Overview (12/09/2017): Added automatically from request for surgery [id number] Chest pain 11/23/2017 Assessment & Plan (11/23/2017 1:22 PM CDT): The patient's chest pain is similar to what she experienced when she was initially diagnosed with reflux esophagitis. At that time, she was placed on once daily PPI therapy which resolved her symptoms. The patient now has recurrent symptoms despite the continued use of PPI. The patient's anti reflux regimen will be increased to twice daily omeprazole to be taken 1 hr before breakfast and 1 hr before the evening meal as well as Pepcid to be taken 1 hr prior to bedtime. Reflux instructions were also reviewed. If the patient's symptoms persist an upper endoscopy will be pursued. History of adenomatous polyp of colon 11/23/2017 Assessment & Plan (11/23/2017 1:24 PM CDT): Surveillance colonoscopy is recommended for June 2018. I will confirm that the patient is on the recall list. Keratosis, senilis 02/19/2016 Inflamed seborrheic keratosis 02/19/2016 Milia 08/15/2015 Sebaceous gland hyperplasia 08/22/2014 Neoplasm of connective and soft tissue 5 Closed fracture of greater tuberosity of humerus 07/31/2014 Current Treatment and Therapy Plans IV Maintenance Therapy Plan* Plan Start Date:03/22/2024 Plan Provider:Jessee Montoya MD PhD Linked Problems Malignant neoplasm of upper lobe of right lung (HCC) Treatment Medications No medications scheduled. Osimertinib PO 28 Day Cycles - Non-Small Cell Lung* Plan Start Date:03/29/2024 Plan Provider:Jessee Montoya MD PhD Linked Problems NSCLC with EGFR mutation (HC C) Treatment Medications Current Day (Day 1, Cycle 2 - Planned for 04/27/2024) No medications scheduled. No medications schedul ed. Past Treatment and Therapy Plans No past plan information found. Lifetime Dose Tracking * Chemical Lifetime Dose Automatic Entry Manual Entr y DLP 995 mGycm 995 mGycm 0 mGycm
--- OUTSIDE RECORDS SUMMARY | 2024-06-27 09:38 | XMS_ITS | Data Portability ---
Author Organization [facility] [place] Address [address] [place] [address] [place] [address] Care Team Providers Care Second Worker Name Role Phone LAKIA WONG Primary Care Provider Assessment Encounter Date Assessment Date Assessment LastModified by Organization Details LastModified Time 07/25/2020 07/25/2020 Annual gynecological exam performed. Patient will come back in a year unless there are new symptoms. reviewed pap guidelines going forward, pcp orders testing f/u prn Suggest Calcium with Vitamin D if not eating in diet. Patient advised to get annual flu shot. Recommend yearly physicals and preform monthly breast exams. Genetic testing is available for patients with family history of cancer. Engage in safe sexual practices, use condoms. Encouraged to have daily exercise. Avoid tobacco and illicit drugs, moderation of alcohol. If BMI greater than 25 dietary consult advised. If you have any questions please call or email. Not available 07/25/2020 15:45:17 Plan of Treatment Reminders Order Date Submit Date Provider Last Modified By Organization Details Last Modified Time Details Appointments None recorded. Lab None recorded. Referral None recorded. Procedures None recorded. Surgeries hysteroscop y, surgical, with biopsy of endometrium and/or polypectomy (SURG) 2019 020 [email or web address] Dane Chun MD, [address], [place], [address], 0 18:45:15 Imaging US, pelvis 2019 020 cat [place], [address], [address], [place], [address], 0 14:30:52 US, transvagina l 2019 020 RACHELLE Garvey, [address], [address], [place], [address], 0 05:00:43 Medication Orders None recorded. Patient TargetsNo targets recorded. Patient Instructions Encounter Date Encounter Id Patient Instructions Last Modified By Organization Details Last Modified Time 09/14/2019 [id number] pt tolerated well, reviewed post op with pt and her f/u one week for post op/test results Not available 09/14/2019 13:03:58 09/21/2019 [id number] atrophic lining , continue to monitor for PMB, f/u wwe Not available 09/21/2019 13:20:01 Reason for Referral None Reported. Results Created Date Observation Date Name Description Value Unit Range Abnormal Flag Note LastModifiedBy Organization Detail LastModifiedTime 08/10/19 20 08/11/2019 bacte rial vagin osis + vagin itis panel , vagin al artie sp. Not Detect ed normal Trich omona s vagin yazmin: DNA testi ng perfo rmed by Trans cript ion Media stephany Ampli ficat ion (TMA) These resul ts shoul d be inter prete d in light of all clini arelis and labor atory findi ngs. This assay is highl y accur ate, but rare false posit shanice and negat shanice resul ts may occur . Posit shanice resul ts in low preva lence popul ation s may requi re re-ev aluat ion. A negat shanice resul t does not precl ude a possi ble infec tion due to a speci men inade quacy or sampl ing error . Test perfo rmed by [facility], d/b/a Joe gould, [address], [place] [address] , Brain Mccabe ra, DO, Labor atory Direc tor. Gardn erell a vagin yazmin, Simi da speci es: Genom ic DNA is isola stephany from patie nt speci mens by stand richard labor atory techn iques and loli zed using custo m OpenA rray plate s, perfo rmed on the Quant Studi o 12K Flex Real Time PCR syste m. A posit shanice resul t is provi ded for patho genic bacte pamela, virus and/o r funga l speci es based on detec tion of ampli ficat ion produ cts. Stacia l vagin al paola resul ts of Stacia l or Edmond stephany are deter mined by calcu latin g the ratio of the organ ism to the total bacte pamela prese nt in the speci men, and pat ring that ratio to a PathG roup patie nt popul ation . Overa ll resul ts of Stacia l, Borde rline and Abnor mal are deter mined using a proba bilit y model which was devel oped by an exten sive loli sis and integ ratio n of clini arelis thres holds for marke r organ isms on a large set of sympt omati c & asymp tomat ic speci mens. Patie nt popul ation s with diffe rent demog raphi cs from the PathG roup model popul ation may have diffe rent indic ator organ isms with diffe rent relat shanice ratio s, which would influ ence the final resul ts. Resul ts shoul d be inter prete d in the onofre xt of all clini arelis and labor atory findi ngs. The test was devel oped and its perfo rmanc e namita cteri stics deter mined by [employer], [employer] d/b/a Path[facility]na gould. It has not been clear ed or appro ricardo by the U.S. Food and Drug Admin istra tion. The FDA has deter mined that such clear ance or appro mani is not neces monica. Perti nent refer ence inter vals are avail able from the labor atory on reque st. Test( s) perfo rmed by [facility], [employer], d/b/a Path[facility]na gould, [address], [place] [address] , Brain Mccabe ra, DO, Labor atory Direc tor. Not Available [facility] ([facility]) [address], [place], [address], 08/12/2019 13:06:33 08/10/19 20 08/11/2019 bacte rial vagin osis + vagin itis panel , vagin al gardnerella vaginalis Not Detect ed normal Trich omona s vagin yazmin: DNA testi ng perfo rmed by Trans cript ion Media stephany Ampli ficat ion (TMA) These resul ts shoul d be inter prete d in light of all clini arelis and labor atory findi ngs. This assay is highl y accur ate, but rare false posit shanice and negat shanice resul ts may occur . Posit shanice resul ts in low preva lence popul ation s may requi re re-ev aluat ion. A negat shanice resul t does not precl ude a possi ble infec tion due to a speci men inade quacy or sampl ing error . Test perfo rmed by [facility], [employer], d/b/a Path [facility], [address], [place] [address] , Brain Mccabe ra, DO, Labor atory Direc tor. Gardn erell a vagin yazmin, Simi da speci es: Genom ic DNA is isola stephany from patie nt speci mens by stand richard labor atory techn iques and loli zed using custo m OpenA rray plate s, perfo rmed on the Quant Studi o 12K Flex Real Time PCR syste m. A posit shaniec resul t is provi ded for patho genic bacte pamela, virus and/o r funga l speci es based on detec tion of ampli ficat ion produ cts. Stacia l vagin al paola resul ts of Stacia l or Edmond stephany are deter mined by calcu latin g the ratio of the organ ism to the total bacte pamela prese nt in the speci men, and pat ring that ratio to a PathG roup patie nt popul ation . Overa ll resul ts of Stacia l, Borde rline and Abnor mal are deter mined using a proba bilit y model which was devel oped by an exten sive loli sis and integ ratio n of clini arelis thres holds for marke r organ isms on a large set of sympt omati c & asymp tomat ic speci mens. Patie nt popul ation s with diffe rent demog raphi cs from the PathG roup model popul ation may have diffe rent indic ator organ isms with diffe rent relat shanice ratio s, which would influ ence the final resul ts. Resul ts shoul d be inter prete d in the onofre xt of all clini arelis and labor atory findi ngs. The test was devel oped and its perfo rmanc e namita cteri stics deter mined by [facility] [employer], [employer] d/b/a Path [employer]. It has not been clear ed or appro ricardo by the U.S. Food and Drug Admin istra tion. The FDA has deter mined that such clear ance or appro mani is not neces monica. Perti nent refer ence inter vals are avail able from the jovany atory on reque st. Test( s) perfo rmed by [facility] [employer], [employer], d/b/a [facility], [address] [place] [address] , Brain Mccabe ra, DO, Labor atory Direc tor. Not Available [facility] ([facility]) [address], [place], [address], 08/12/2019 13:06:33 08/10/19 20 08/11/2019 bacte rial vagin osis + vagin itis panel , vagin al trichomonas vaginalis, aptima (panther) NOT DETECT ED normal Trich omona s vagin yazmin: DNA testi ng perfo rmed by Trans cript ion Media stephany Ampli ficat ion (TMA) These resul ts shoul d be inter prete d in light of all clini arelis and labor atory findi ngs. This assay is highl y accur ate, but rare false posit shanice and negat shanice resul ts may occur . Posit shanice resul ts in low preva lence popul ation s may requi re re-ev aluat ion. A negat shanice resul t does not precl ude a possi ble infec tion due to a speci men inade quacy or sampl ing error . Test perfo rmed by [facility], d/b/a [facility]oup, [address], [place] [address] , Brain Mccabe ra, DO, Labor atory Direc tor. Wilfredo arce, Simi da speci es: Genom ic DNA is isola stephany from patie nt speci mens by stand richard labor atory techn iques and loli zed using custo m OpenA rray plate s, perfo rmed on the [employer] o 12K Flex Real Time PCR syste m. A posit shanice resul t is provi ded for patho genic bacte pamela, virus and/o r funga l speci es based on detec tion of ampli ficat ion produ cts. Stacia l vagin al paola resul ts of Stacia l or Edmond stephany are deter mined by calcu latin g the ratio of the organ ism to the total bacte pamela prese nt in the speci men, and pat ring that ratio to a PathG roup patie nt popul ation . Overa ll resul ts of Stacia l, Borde rline and Abnor mal are deter mined using a proba bilit y model which was devel oped by an exten sive loli sis and integ ratio n of clini arelis thres holds for marke r organ isms on a large set of sympt omati c & asymp tomat ic speci mens. Patie nt popul ation s with diffe rent demog raphi cs from the PathG roup model popul ation may have diffe rent indic ator organ isms with diffe rent relat shanice ratio s, which would influ ence the final resul ts. Resul ts shoul d be inter prete d in the onofre xt of all clini arelis and labor atory findi ngs. The test was devel oped and its perfo rmanc e namita cteri stics deter mined by [facility] [employer] d/b/a Path[employer]na gould. It has not been clear ed or appro ricardo by the U.S. Food and Drug Admin istra tion. The FDA has deter mined that such clear ance or appro mani is not neces monica. Perti nent refer ence inter vals are avail able from the [place] atory on reque st. Test( s) perfo rmed by [employer] [facility] [employer] [employer], d/b/a Path rou, [address], [place] [address] , Brain Mccabe ra, DO, Labor atory Direc tor. Not Available [facility] ([facility]) [address], [place], [address], 08/12/2019 13:06:33 09/14/19 20 09/16/2019 surgi arelis patho logy study surgical pathology View Report ACCES ОЛЕГ #: [id number] Patie nt Name: JILLIAN JONES Age-S ex-DO B: 64y F [birth year] Proce dure Date: 09/13 MRN: [id number] олег Date: 2019 Pt Acct# : Repor t Date: 2019 Locat ion: OFFIC E Physi christiane( s): Pam pritchard P A T H O L O G Y R E P O R T DIAGN OSIS: Endom etriu m, biops y: Predo minan tly blood , mucus , and fragm ents of benig n endoc ervic al epith elium . Scant fragm ents of atten uated epith elium consi stent with atrop hic endom etriu m. No evide nce of malig beatrice or hyper plasi a. Emilia pantoja MD elect tanya franks flor d 09/15 02:52 PM Gross Descr iptio n: Recei ricardo in forma connie label ed Jillian Juwan and EMB are multi ple piece s of alanis- brown tissu e with assoc iated mucoi d mater ial that in aggre gate are 3 x 0.7 x 0.1 cm. The speci men is place d in a tea bag and total ly submi tted in casse tte 1A, M/1. (AC2, LT3,e h) Micro scopi c Descr iptio n: Micro scopi c exami natio n is perfo rmed. Proce dure: Endom etria l biops y Clini arelis Histo ry: Postm enopa usal bleed ing (N95. 0) Speci men List: EMB End of Repor t Techn ical servi juancho provi ded by [facility] [employer], d/b/a [facility] [employer], [address] [place] [address] Lukasz Gutierrez MD, Labor atorEvotec Dire tor. Case revie wed and diagn osis rende red at [facility] [employer], d/b/a [facility] [employer], [address], [place] [address] Emilia pantoja MD, Labor [employer] tor. CONFI DENTI AL Not Available [facility] ([facility] [employer] [facility]) [address], [place], [address], 09/16/2019 15:53:32 05/17/19 21 05/17/2020 , lisa simmons md interpretati on Not Available Raquel worley [address], [place], [address], 08/19/2019 11:59:43 07/26/19 21 07/25/2020 pap, IG Pap test SEE RESULT S BELOW CASE REPOR T: Cytol ogy Gynec ologi arelis Repor t Case: [id number] Autho phyllis brownlee Provi wang: Pam Stevens, CHIEF OF HOSPITAL MEDICINE Colle cted: 07/25 1609 Order ing Locat ion: [place] Path[facility] bel[facility]an Recei ricardo: 07/26 0902 First Scree n: Janee larose, [place] , [place] Rescr een: Sindy [place] Speci men: Scree marcellus Pap - Image d, Cervi x STATE MENT OF ADEQU ACY: Satis facto ry for evalu ation Trans forma tion zone compo nent prese nt FINAL DIAGN OSIS: Negat shanice for Squam ous Intra epith elial Lesio n Elect tanya franks flor d by Sindy [place] on 021 at 4:33 PM ----- ----- ----- ----- ----- ----- ----- ----- ----- ----- ----- ----- ----- ----- ----- ----- ----- ---- HPV RESUL TS: HPV mRNA E6/E7 : No HPV mRNA Detec stephany NOTE: This high risk HPV mRNA assay detec ts fourt een high- risk HPV types (16, 18, 31, 33, 35, 39, 45, 51, 52, 56, 58, 59, 66, 68) witho ut diffe renti ation . CHART ABLE COMME NT: Note: This speci men was revie wed by a Cytot echno logis t and/o r Patho logis t (as indic ated in this repor t) after evalu ation using the Thinp rep Imagi ng Syste m. CLINI ARELIS INFOR MATIO N: Menst rual Statu s: LMP (if appli cable ): Clini arelis Histo ry/Pr eviou s Pap: Type of Neopl ananya (if appli cable ): Other Histo ry: Hormo libertad (if appli cable ): PAP EDUCA ARACELIS L NOTE: The Pap Test is a scree marcellus test with an inher ent false negat shanice rate. Liqui d-bas e sampl ing may decre ase, but will not elimi devante, false negat shanice resul ts. A negat shanice resul t does not precl ude the prese nce and/o r devel opmen t of disea se, since the prese nce of abnor mal cells in the sampl e depen ds on the locat ion of the lesio n and sampl ing techn ique. Violetta nued regul ar scree marcellus is the best metho d of cance r preve ntion . If repor stephany cytol ogic findi ng do not corre late with physi arelis and/o r histo rical findi ngs, furth er inves tigat ion is recom amy d, as clini jake warra nted. Not Available [facility] (Lab) [address], [place], [address], 07/26/2020 18:36:48 08/19/19 20 US, pelvi s No observ ation record ed. [address], [place], [address], 08/23/2019 10:20:47 Result Notes None recorded. Problems Name Problem SNOMED Code Status Onset Date Resolution Date Notes Provider Name and Address Organization Details Recorded Time Atrophic vaginiti s 82428345 Completed 201807/25/2020 Postmeno pausal atrophic vaginiti s;Record ed Elsewher e: No [facility]at [facility] S ource: EHR Gear Inspector jessica: N Mansi ce ID: 0001 Juan David lable Time: 11:00:00 AM Lindy fam [facility] 14:34:[address] Concept Completed 201607/25/2020 Encntr for publicity writer exam (general ) (routine ) w/o abn findings ;Recorde d Elsewher e: No Locat ion: Daniel alexis [facility] S ource: EHR Gear Inspector jessica: N Practi ce ID: 0001 Juan David lable Time: 08:15:00 AM Lindy fam [facility] 1 14:34:41 Micturit ion finding Completed 201807/25/2020 Urinary incontin ence;Rec orded Elsewher e: No Locat ion: Daniel aelxis [facility] S ource: EHR Gear Inspector jessica: N Practi ce ID: 0001 Juan David lable Time: 11:00:00 AM Lindy fam [facility] 14:34:20 Microsco pic hematuri a [id number] Completed 201207/25/2020 MICROSCO PIC HEMATURI A;Record ed Elsewher e: No Locat ion: Daniel alexis [facility] S ource: EHR Gear Inspector jessica: N Tamrati ce ID: 0001 Juan David lable Time: 08:30:00 AM Lindy fam [facility] 14:34:30 Screenin g for malignan t neoplasm of rectum Completed 201607/25/2020 Encounte r for screenin g for malignan t neoplasm of rectum;R ecorded Elsewher e: No Locat ion: Daniel alexis [facility] S ource: EHR Gear Inspector jessica: N Tamrati ce ID: 0001 Juan David lable Time: 08:15:00 AM Lindy fam [facility] 14:34:38 Obesity [id number] Completed 201407/25/2020 Obesity; Recorded Elsewher e: No Locat ion: Daniel alexis [facility] S ource: EHR Gear Inspector jessica: N Tamrati ce ID: 0001 Juan David lable Time: 08:30:00 AM Lindy fam [facility] 14:34:[address] Concept Completed 201707/25/2020 Encntr for general adult medical exam w/o abnormal findings ;Recorde d Elsewher e: No Locat ion: [facility] S ource: EHR Gear Inspector jessica: N Tamrati ce ID: 0001 Juan David lable Time: 11:00:00 AM Lindy fam [facility] 14:34:39 Urinary tract infectio us disease [id number] Completed 201107/25/2020 Urinary tract infectio n, site not specifie d;Record ed Elsewher e: No Locat ion: [facility] S ource: EHR Gear Inspector jessica: N Practi ce ID: 0001 Juan David lable Time: 11:30:00 AM Lindy fam, [facility] 1 14:34:45 Evaluati on finding Completed 201607/25/2020 Hematuri a, unspecif ied;Beny rded Elsewher e: No Locat ion: [facility] S ource: [facility] jessica: N Practi ce ID: 0001 Juan David lable Time: 08:15:00 AM Lindy fam, [facility] 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 14:34:43 Malaise and fatigue [id number] Completed 201407/25/2020 Fatigue / Malaise; Recorded Elsewher e: No Locat ion: [facility] S ource: [facility] jessica: N Practi ce ID: 0001 Juan David lable Time: 08:30:00 AM Lindy fam, [facility] 14:34:28 Screenin g for malignan t neoplasm of cervix Completed 201107/25/2020 Screenin g for malignan t neoplasm s of the cervix;R ecorded Elsewher e: No Locat ion: [facility] S ource: EHR Gear Inspector jessica: N Practi ce ID: 0001 Juan David lable Time: 11:30:00 AM Lindy fam, [facility] 14:34:35 Carbuncl e of buttock [id number] Completed 201207/25/2020 Carbuncl e and furuncle of buttock; Recorded Elsewher e: No Locat ion: [facility] S ource: EHR Gear Inspector jessica: N Practi ce ID: 0001 Juan David lable Time: 08:30:00 AM Lindy fam [facility] 14:34:18 Dyspareu kike [id number] Completed 201107/25/2020 Dyspareu kike;Beny rded Elsewher e: No Locat ion: [facility] S ource: EHR Gear Inspector jessica: N Practi ce ID: 0001 Juan David lable Time: 11:30:00 AM Lindy fam [facility] 14:34:22 Increase d frequenc y of urinatio n [id number] Completed 201007/25/2020 Urinary frequenc y;Practi ce ID: 0001 Lindy fam [facility] 14:34:26 Problem Notes None recorded. Procedures Surgical History Date Name Laterality Status Provider Name and Address Organization Details Recorded Time 021 Date of Last Pap Smear completed Lindy Thompson [facility] 07/25/2020 14:34:50 021 hernia repair completed Lindy Thompson [facility] 07/25/2020 14:36:23 020 Hysteroscopy completed Pam Pablo CNM [address], [place], [address], [facility] 09/14/2019 13:03:10 020 Hysteroscopy biopsy completed Lindy Thompson [facility] 09/15/2019 13:05:38 019 [facility]/22[facility]2019 18:44:35 018 [facility] 07/25/2020 09:06:[address] [facility] 08/19/2019 12:10:16 Imaging Results Imaging Date Name Status LastModified by Organiz ation Details LastModified Time 08/19/2019 US, pelvis completed [facility] [address], [place], [address], 08/23/2019 10:20:47 Procedure Notes None recorded. Medical Equipment None Reported. Allergies No known drug allergies Medications Name Sig Start Date Stop Date Status Note LastModified by Organization Details LastModified Time celecoxib 200 mg capsule take 1 the night before procedur e and 2 the morning of the procedur e 09/13 completed Not Available Not Available Not Available venlafaxi ne ER 37.5 mg capsule,e xtended release 24 hr take 1 capsule by oral route every day with food 07/25 completed Prescrib ed Elsewher e: Yes Loca tion: [facility] M odify By: nae le DateTime : 10/20/19 15 08:30:00 AM Not Available Not Available Not Available venlafaxi ne ER 75 mg capsule,e xtended release 24 hr take 1 capsule (75MG) by oral route every day with food 07/25 completed Not Available Not Available Not Available ibuprofen 800 mg tablet TAKE 1 TABLET BY MOUTH EVERY 6 HOURS NEEDED FOR PAIN active Not Available Not Available No t Available hydrocodo ne 5 mg-acetam inophen 325 mg tablet TAKE 1 TO 2 TABLETS BY MOUTH EVERY 6 HOURS NEEDED FOR PAIN 07/25 completed Not Available Not Available Not Available ondansetr on HCl 8 mg tablet take 1 tablet 2 hours before procedur e 09/13 completed Not Available Not Available Not Available venlafaxi ne ER 150 mg capsule,e xtended release 24 hr TAKE 1 CAPSULE BY MOUTH EVERY MORNING 07/25 completed Not Available Not Available Not Available sulfameth oxazole 800 mg-trimet hoprim 160 mg tablet take 1 tablet by oral route every 12 hours 07/25 completed Not Available Not Available Not Available omeprazol e 40 mg capsule,d elayed release TAKE 1 CAPSULE BY MOUTH DAILY active Not Available Not Available No t Available tramadol 50 mg tablet 07/25 completed Not Available Not Available Not Available cefadroxi l 500 mg capsule take 1 capsule (500MG) by oral route every 12 hours for 10 days 03/13 completed Prescrib ed Elsewher e: No Locat ion: [facility] odify By: thelma barnard DateTime : 03/04/20 13 08:30:00 AM Not Available Not Available Not Available amoxicill in 875 mg tablet 09/13 completed Not Available Not Available Not Available famotidin e 20 mg tablet TAKE 1 TABLET BY MOUTH DAILY 07/25 completed Not Available Not Available Not Available omeprazol e 10 mg capsule,d elayed release take 2 capsule by oral route every day before a meal 07/25 completed Prescrib ed Elsewher e: Yes Loca tion: [facility] odify By: jhreggie le DateTime : 10/20/19 15 08:30:00 AM Not Available Not Available Not Available cephalexi n 500 mg capsule 08/18 completed Not Available Not Available Not Available Effexor 75 mg tablet take 1 tablet (75MG) by oral route 2 times every day with food 07/03 completed Prescrib ed Elsewher e: No Locat ion: [facility] odify By: kaitlynn deal DateTime : 03/24/20 11 01:15:00 PM Not Available Not Available Not Available oxybutyni n chloride ER 5 mg tablet,ex tended release 24 hr TK 1 T PO D 07/25 completed Not Available Not Available Not Available diazepam 10 mg tablet take 1 hour before procedur e 09/13 completed Not Available Not Available Not Available Vitamin D2 1,250 mcg (50,000 unit) capsule take 1 capsule ([id number] ITS) by oral route every week 10/19 completed Prescrib ed Elsewher e: No Locat ion: [facility] odify By: nae Pang r DateTime : 03/28/20 13 12:07:08 PM Not Available Not Available Not Available monteluka st 4 mg oral granules in packet 07/25 completed Prescrib ed Elsewher e: Yes Loca tion: [facility] M odify By: nae Pang r DateTime : 10/20/19 15 08:30:00 AM Not Available Not Available Not Available Premarin 0.625 mg/gram vaginal cream insert (1G) by vaginal route every OTHER DAY FOR A MONTH THEN ONCE OR TWICE WEEKLY 07/25 completed Not Available Not Available Not Available Ciprodex 0.3 %-0.1 % ear drops,meaghan pension INSTILL 4 DROPS INTO THE AFFECTED EAR(S) TWICE A DAY FOR 7 DAYS 07/25 completed Not Available Not Available Not Available nitrofura ntoin monohydra te/macroc rystals 100 mg capsule TAKE 1 CAPSULE BY MOUTH EVERY 12 HOURS FOR 5 DAYS. TAKE WITH FOOD/ESTEFANY L. 07/25 completed Not Available Not Available Not Available omeprazol e 08/18 completed Not Available Not Available Not Available venlafaxi ne 08/18 completed Not Available Not Available Not Available oxybutyni n 08/18 completed Not Available Not Available Not Available Vitals Date Recorded Body height Body mass index (BMI) Body weight Systolic blood pressure Diastolic blood pressure Provider Name and Address Organization Details Last Updated DateTime 07/25/2020 156.21 cm 34 kg/m2 23231.4 g 123 mm[Hg] 82 mm[Hg] Lindy Thompson [facility] 1 14:33:01 Date Recorded Body height Body mass index (BMI) Body weight Systolic blood pressure Diastolic blood pressure Provider Name and Address Organization Details Last Updated DateTime 09/14/2019 156.21 cm 35.9 kg/m2 68212.33 g 111 mm[Hg] 75 mm[Hg] Lindy Thompson [facility] 0 12:34:52 Date Recorded Body height Body mass index (BMI) Body weight Systolic blood pressure Diastolic blood pressure Provider Name and Address Organization Details Last Updated DateTime 09/21/2019 156.21 cm 35.9 kg/m2 89238.33 g 164 mm[Hg] 94 mm[Hg] Lindy Thompson [facility] 0 12:13:19 Date Recorded Body height Body mass index (BMI) Body weight Systolic blood pressure Diastolic blood pressure Provider Name and Address Organization Details Last Updated DateTime 08/19/2019 156.21 cm 35.9 kg/m2 40692.33 g 126 mm[Hg] 86 mm[Hg] Lindy Thompson [facility] 0 12:19:37 Social History Question Answer Notes LastModified by Organizat ion Details LastModified Time Tobacco Smoking Status Never Smoker Lindy Thompson [facility] 08/19/2019 12:17:10 What Is Your Level Of Alcohol Consumption? Occasional [email or web address] Information not available 08/19/2019 Are You Blind Or Do You Have Difficulty Seeing? No [email or web address] Information not available 07/25/2020 What Is Your Level Of Caffeine Consumption? Moderate [email or web address] Information not available 07/25/2020 In The 14 Days Before Symptom Onset, Have You Had Close Contact With A Laboratory-confir med COVID-19 While That Case Was Ill? No [email or web address] Information not available 07/25/2020 In The 14 Days Before Symptom Onset, Have You Had Close Contact With A Person Who Is Under Investigation For COVID-19 While That Person Was Ill? No [email or web address] Information not available 07/25/2020 Have You Been To An Area Known To Be High Risk For COVID-19? No [email or web address] Information not available 07/25/2020 Are You Deaf Or Do You Have Serious Difficulty Hearing? No [email or web address] Information not available 07/25/2020 What Type Of Diet Are You Following? REGULAR [email or web address] Information not available 07/25/2020 Do You Or Have You Ever Used E-cigarettes Or Vape? Never Used Electronic Cigarettes [email or web address] Information not available 09/14/2019 What Was The Date Of Your Most Recent Tobacco Screening? 07/25/2020 [email or web address] Information not available 07/25/2020 Have You Ever Been Counseled For Unhealthy Alcohol Use? No [email or web address] Information not available 07/25/2020 Do You Use Your Seat Belt Or Car Seat Routinely? Yes Information not available 07/25/2020 Do You Have Smoke And Carbon Monoxide Detectors In Your Home? Yes [email or web address] Information not available 07/25/2020 Do You Or Have You Ever Used Smokeless Tobacco? Never Used Smokeless Tobacco [email or web address] Information not available 09/14/2019 How Much Tobacco Do You Smoke? No [email or web address] Information not available 09/14/2019 Do You Feel Stressed (tense, Restless, Nervous, Or Anxious, Or Unable To Sleep At Night)? [id number] [email or web address] Information not available 07/25/2020 Do You Use Any Illicit Or Recreational Drugs? No [email or web address] Information not available 07/25/2020 Do You Use Sunscreen Routinely? Yes [email or web address] Information not available 07/25/2020 Has Tobacco Cessation Counseling Been Provided? No [email or web address] Information not available 07/25/2020 Do You Or Have You Ever Used Any Other Forms Of Tobacco Or Nicotine? No [email or web address] Information not available 07/25/2020 Sex: Unknown Functional Status Question Answer Note LastModified by Organizat ion Details LastModified Time Are you able to walk? [email or web address] Information not available 07/25/2020 What is your exercise level? Occasional Information not available 07/25/2020 Mental Status None recorded. Family History Nothing Reported. Medical History Condition Response Anxiety Disorder Y Other Kidney or Bladder Problems Y GI Problems Y Depression/ depression Y Gynecological History Statement/Question Response If Post Menopausal, Age at Menopause 41 Date of Last Mammogram Date of LMP 04/20/1995 Date of Last Pap Smear 07/25/2020 Current Control Method Menopause 41 LMP Unknown Obstetrics History GPAL:G 2 P 1 0 1 1 Type Value Full Term 1 Spontaneous 1 Living 1 Total 2 Past Encounters Encounter ID Performer Location Encounter Start Date Encounter Closed Date Diagnosis/Indication Diagnosis SNOMED-CT Code Diagnosis ICD10 Code Diagnosis Note [id number] Pam Pablo CNM [place] [address],[place] [address] 08/10/2019 10:08:16 08/10/2019 10:55:25 Postmenopausal bleeding 11644642 N95.0 [id number] [address],[place] [address] 08/19/2019 11:28:49 08/19/2019 14:56:25 Postmenopausal bleeding 81314469 N95.0 [id number] [address],[place] [address] 08/19/2019 11:31:14 08/19/2019 14:30:48 Postmenopausal bleeding 44793210 N95.0 [id number] [address],[place] [address] 09/14/2019 12:17:10 09/14/2019 13:49:53 Postmenopausal bleeding 65594415 N95.0 f/u today [id number] Tara Teague [place] [address],[place] [address] 09/14/2019 12:18:10 10/02/2019 15:38:24 [id number] [address],[place] [address] 09/21/2019 11:57:33 10/12/2019 09:39:32 Postoperative visit [id number] Z09 [id number] [address],[place] [address] 07/25/2020 14:13:55 07/25/2020 15:54:08 Gynecologic examination 58424656 Z01.419 Health Concerns Section Related Observation LastModified by Organization Detai ls LastModified Time None Recorded Concern Status LastModified by Organization Details LastModified Time None Recorded Advance Directives Directive None Recorded Payers Encounter Date Sequence Insurance Name Policy Number Policy Hodge Covered Member ID Hodge Member ID Guarantor Name 08/19/2019 1 [facility] [id number] Jillian Jones [id number] Jillian Jones 09/14/2019 1 [facility] [id number] Jillian Jones [id number] Jillian Jones 09/14/2019 1 [facility] [id number] Jillian Jones [id number] Jillian Jones 09/21/2019 1 [facility] [id number] Jillian Jones [id number] Jillian Jones 07/25/2020 1 [facility] (MEDICARE REPLACEMENT/A DVANTAGE - HMO) [id number] Jillian Jones [id number] Jillian Jones Notes Date Note Type Note Provider Name and Address Organization Details Recorded Time 08/19/2019 text/html pt had post menopausal bleeding, vaginal cultures negative, ultrasound today reviewed with Dr. Chun suspect uterine polyp Pam Pablo CNM [address], [place], [address], [facility] 08/24/2019 09:20:27 09/14/2019 text/html pt here for hysteroscopy/polypec laura for postmenopausal bleeding consents signed prior, at visit with pt Pam Pablo CNM [address], [place], [address], [facility] 09/14/2019 13:04:06 09/21/2019 text/html s/p hysteroscopy/polypec laura for pmb, doing well, some small pink and clear d/c very little, no complaints, pathology negative for hyperplasia Pam Pablo CNM [address], [place], [address], [facility] 09/21/2019 13:33:59 07/25/2020 text/html Annual GYNReport ed bypatient.Breast:No breast pain; No breast lump; No nipple discharge Sexual complaints:No sexual complaints; No pain during intercourse; Normal libido Menopausal Symptoms:No menopausal symptoms; Normal vaginal lubrication Psychological symptoms:No depression; No anxiety; No PMDDNotes:does sbe, mammogram done and wnl, osteoporosis and primary dr treating, just had hernia surgery couple weeks ago Pam Pablo CNM [address], [place], [address], [facility] 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 Status 08/19/19 20 1 CLOSED Fetus Data First Name Last Name Admitted to NICU Weight (g) Sex Living Outcome Pediatric Complications Fetus ID Race Codes Race Delivery Type 1042 Hollis Calculation Initial Hollis Date Initial Exam Date Initial Exam Provider Initial Ultrasound Date Last Menstrual Period Date Ultra Sound Weeks Gestation 0 Eighteen To Twenty Week Hollis Update Ultra Sound Date Fundal Height At Umbil Quickening Date Ultra Sound Latest Weeks Gestation Final Hollis Confirmed By Final Hollis Confirmed Date Final Hollis Date Ultra Sound Latest Days Gestation 0 0 Menstrual History Last Menstrual Date Menses Monthly On Bcp Conception Prior Menses Frequency Hcg Plus Date Menarche Onset Age Delivery Information Delivery Date Delivery Type Labor Anesthesia Weeks Gestation Incision Type Labor Labor Length Hrs Delivered By Post Complications Tubal Sterilization Discharge Date Comments 1984 miscarria ge Discharge Information Feeding Method Contraceptive Method Maternal HG B and HCT Levels Ob Episode Information Episode Created Date Number of Fetuses Patient Bloodtype Patient rh Status Prepregnancy Weight lbs Domestic Partner Domestic Partner Phone Father Name 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 Status 08/19/19 20 1 CLOSED Fetus Data First Name Last Name Admitted to NICU Weight (g) Sex Living Outcome Pediatric Complications Fetus ID Race Codes Race Delivery Type 2721.55 2 F Full Term 1041 Vaginal Delivery Hollis Calculation Initial Hollis Date Initial Exam Date Initial Exam Provider Initial Ultrasound Date Last Menstrual Period Date Ultra Sound Weeks Gestation 0 Eighteen To Twenty Week Hollis Update Ultra Sound Date Fundal Height At Umbil Quickening Date Ultra Sound Latest Weeks Gestation Final Hollis Confirmed By Final Hollis Confirmed Date Final Hollis Date Ultra Sound Latest Days Gestation 0 0 Menstrual History Last Menstrual Date Menses Monthly On Bcp Conception Prior Menses Frequency Hcg Plus Date Menarche Onset Age Delivery Information Delivery Date Delivery Type Labor Anesthesia Weeks Gestation Incision Type Labor Labor Length Hrs Delivered By Post Complications Tubal Sterilization Discharge Date Comments 0 37 Discharge Information Feeding Method Contraceptive Method Maternal HG B and HCT Levels
--- OUTSIDE RECORDS SUMMARY | 2024-06-27 09:38 | XMS_ITS | Clinical Summary ---
Author Organization [facility] Address [address] [place] [address] Care Team Providers Care Large Animal Husbandry Technician Name Role Phone Rm Ansari MD Primary Care Provider [phone] Valentino Martinez MD Unavailable [phone] Source Comments [facility],non-owned Affiliates and Associated Physician Practices is amultiple site organization consisting of ambulatory clinics and hospital sitesin [place], [place], [place] and [place]. This disclosure is being madepursuant to the Care Everywhere program and may not contain all information available regarding this patient. Last updated 18.[facility] Allergies No known active allergies Medications * Be aware that medications may not be up to date on this document. Alwaysverify current medications with the patient. Medication Sig Dispensed Refills Start Date End Date Status famotidine (PEPCID) 20 MG tablet Take 20 mg by mouth once daily Active loratadine (CLARITIN) 10 MG tablet Take 10 mg by mouth once daily Active OMEPRAZOLE PO Take 40 mg by mouth once daily Active oxybutynin CR 24hr (DITROPAN-XL) 5 MG tablet Take 5 mg by mouth once daily Active Venlafaxine HCl (VENLAFAXINE ER 24HR) 150 MG tablet Take 150 mg by mouth daily with breakfast Active MULTIPLE VITAMIN PO Take by mouth once daily Active Calcium Carb-Cholecalciferol (CALCIUM 600 + D PO) Acti ve HYDROcodone-acetamin ophen (NORCO) 5-325 MG tablet Take 1 tablet by mouth every 6 hours as needed for Pain 30 tablet 02/14/2020 Active Social History Tobacco Use Types Packs/Day Years [...] Mass Index 34.53 02/14/2020 8:16 AM CDT Plan of Treatment Health Maintenance Due Date Last Done Comments BONE DENSITY TESTING 1954 COLOGUARD (AGES 45-75) - COL ON CA SCREENING 1954 COLON MONITORING 1954 COLONOSCOPY - COLON CA SCREENING 1954 CT COLONOGRAPHY - COLON CA SCREENING 1954 Colorectal Cancer Screening 1954 FIT - COLON CA SCREENING 1954 FLEX SIG - COLON CA SCREENING 1954 LIPID TESTING 1954 MAMMOGRAM 1954 HEPATITIS C SCREENING 03/19/1972 DTAP/TDAP/TD VACCINES (1 - Tdap) 1973 PNEUMOCOCCAL VACCINE 50+ (1 of 1 - PCV) 2004 ZOSTER VACCINE (1 of 2) 2004 COVID-19 VACCINE ( - 2023-2 5 season) 2023 INFLUENZA VACCINE (#1) 2023 DEPRESSION SCREENING 04/20/2024 MEDICARE AWV CALENDAR YEAR 2024 Respiratory Syncytial Virus (RSV) Vaccine Pt: or over 60 yrs (1 - 1-dose 75+ series) 2029 HEPATITIS B VACCINE Aged Out No longe r eligible based on patient's age to complete this topic HIB VACCINE Aged Out No longer eligi ble based on patient's age to complete this topic HPV VACCINE Aged Out No longer eligi ble based on patient's age to complete this topic MENINGOCOCCAL (Group B) VACCINE Aged Out No longer eligible based on patient's age to complete this topic MENINGOCOCCAL VACCINE Aged Out No kalpesh juwan eligible based on patient's age to complete this topic Medical Devices Implanted Type Area Heel Splitter Device Identifier Shelf Expiration Date Model / Serial / Lot Graft Bone Tenfuse Pip 10d Algrf 18x2.7 Implanted:Qty: 1 on 02/14/2020 by Hortencia Monte MD at [facility] Right: Foot [employer] 06/09/2021 [id number] / / [id number] Description:Ref [id number] 2.0 X 14mm Screw Implanted:Qty: 1 on 02/14/2020 by Hortencia Monte MD at [facility] Right: Foot [id number] / / 2.4 X 12mm Screw Implanted:Qty: 1 on 02/14/2020 by Hortencia Monte MD at [facility] Right: Foot [id number] / / Explanted Type Area Heel Splitter Device Identifier Shelf Expiration Date Model / Serial / Lot Wire K 1.1mm 150mm Troc Blnt Fx Explanted:Qty: 1 on 02/14/2020 by Hortencia Monte MD at [facility] Right: Foot [employer] [id number] / / 2.0 X 10mm Screw Explanted:Qty: 1 on 02/14/2020 at [facility] Right: Foot [id number] / / [id number] Care Teams Large Animal Husbandry Technician Relationship Specialty Start Date End Date Rm Ansari MD PCP - General 02/27/20 Valentino Martinez MD [address] [place] [address] Family Medicine 02/27/20
--- OUTSIDE RECORDS SUMMARY | 2024-06-27 09:38 | XMS_ITS | Clinical Summary ---
Author Organization [facility] [place] [address] Address [address] [place] [address] Care Team Providers Care Chemical Process Equipment Operator Name Role Phone Valentino Martinez MD Primary Care Provider Jessee Montoya MD PhD Unavailable Hai Marley MD Unavailable [phone] Allergies No known active allergies Medications venlafaxine XR (EFFEXOR-XR) 150 mg 24 hr capsule take 1 capsule by oral route every day 0 0 6 Active osimertinib (TAGRISSO) 80 mg tabletIndicatio ns:NSCLC with EGFR mutation (HCC) Take 1 tablet (80 mg total) by mouth daily 30 tablet 3 4 07/28/19 25 Active gabapentin (NEURONTIN) 300 mg capsuleIndicati ons:Nerve pain Take 1 capsule (300 mg total) by mouth 2 (two) times a day AND 2 capsules (600 mg total) nightly. 120 capsule 5 Active lidocaine (LMX) 4 % cream Apply topically 3 (three) times a day as needed for pain 60 g 1 5 Active Active Problems Patient Care Coordination No te [...] (01/21/2019): Added automatically from request for surgery [id number] Imbalance 12/28/2018 Assessment & Plan (12/28/2018 9:09 AM CDT): Discussed balance activities such as yoga. No evidence of inner ear pathology such as BPPV today. Ear itching 12/28/2018 Assessment & Plan (12/28/2018 9:10 AM CDT): 50/50 alcohol and vinegar mix as needed. Keep ears dry. Tinnitus, bilateral 12/07/2018 Arthritis 11/03/2018 Overview (11/03/2018): Added automatically from request for surgery [id number] Diverticulosis of colon 01/20/2018 Hiatal hernia 01/20/2018 Polyp of colon 01/20/2018 History of colon polyps 12/09/2017 Overview (12/09/2017): Added automatically from request for surgery [id number] Gastroesophageal reflux disease 12/09/2017 Overview (12/09/2017): Added automatically from request for surgery [id number] Chest pain 11/23/2017 Assessment & Plan (11/23/2017 [...] fracture of greater tuberosity of humerus 07/31/2014 Encounters Date Type Department Care Team Description 06/14/2024 2:45 PM BOX FOLDING MACHINE OPERATOR Office Visit [facility] Oncology [address] [place] [address] [address] [place] [address] Jessee Montoya MD PhD Malignant neoplasm of upper lobe of right lung (HCC) (Primary Dx) 06/14/2024 2:00 PM BOX FOLDING MACHINE OPERATOR Lab [facility] at [address] [address] Malignant neoplasm of upper lobe of right lung (HCC) 05/20/2024 Orders Only [facility] Surgery [address] [facility] Floor 5 [place] [phone] Sujata Phan NP Nerve pain (Primary Dx) 05/20/2024 Telephone [facility] Cardiothoracic Surgery [address] [facility] 8th Floor [address] [place] [phone] Anitha Chambers 05/17/2024 2:45 PM BOX FOLDING MACHINE OPERATOR Office Visit [facility] Oncology [address] [facility] [address] [place] [address] Jessee Montoya MD PhD Malignant neoplasm of upper lobe of right lung (HCC) (Primary Dx) 05/17/2024 2:15 PM BOX FOLDING MACHINE OPERATOR Lab [facility] at [address] [address] Malignant neoplasm of upper lobe of right lung (HCC) 05/05/2024 10:15 AM BOX FOLDING MACHINE OPERATOR Office Visit [facility] Surgery [address] [facility] [address] [place] [address] Bola Almanza MD Malignant neoplasm of lung, unspecified laterality, unspecified part of lung (HCC) (Primary Dx) 04/26/2024 10:30 AM BOX FOLDING MACHINE OPERATOR Office Visit [facility] Oncology [facility] [facility] [address] [place] [phone] Jessee Montoya MD PhD Malignant neoplasm of upper lobe of right lung (HCC) (Primary Dx) 04/26/2024 10:00 AM BOX FOLDING MACHINE OPERATOR Lab [facility] at [address] [address] Malignant neoplasm of upper lobe of right lung (HCC) 04/21/2024 Documentation [facility] [address] [facility] Floor 6 [place] [address] Melba Graham RMA Financial Assistance 04/19/2024 11:14 AM BOX FOLDING MACHINE OPERATOR - 04/19/2024 11:59 PM BOX FOLDING MACHINE OPERATOR Hospital Encounter [facility] [address] [place] [address] Malignant neoplasm of upper lobe of right lung (HCC) Discharge Disposition: Discharge to home or self care 03/29/2024 10:15 AM BOX FOLDING MACHINE OPERATOR Office Visit [facility] Oncology [address] [place] [address] [place] [phone] Jessee Montoya MD PhD Malignant neoplasm of upper lobe of right lung (HCC) (Primary Dx); NSCLC with EGFR mutation (HCC) 03/29/2024 9:30 AM BOX FOLDING MACHINE OPERATOR Lab [facility] [address] [place] [address] Malignant neoplasm of upper lobe of right lung (HCC) 03/29/2024 Orders Only [facility] Oncology [address] [place] [phone] Jessee Montoya MD PhD from Last 3 Months Immunizations Immunization Administration Dates Next Due Influenza, Quadrivalent, Hig h Dose, Preservative Free, Intrr 03/01/2020 Influenza, Trivalent, High D ose, Split, Preservative Free, Intramuscular 03/06/2015 TD Preservative Free 08/29/2023 ZOSTER LIVE 02/19/2015 Surgical History Surgery Date Site/Laterality Comments CHOLECYSTECTOMY TUBAL LIGATION COLONOSCOPY last screening 06/27/15 , bleeding BUNIONECTOMY Right HIATAL HERNIA REPAIR CARPAL TUNNEL RELEASE Bilateral LOBECTOMY 02/03/2024 Right took partial long Medical History Medical History Date Comments GERD (gastroesophageal reflux disease) controlled since hernia surgery Depression Miscarriage Tinnitus Sleep apnea Pneumothorax after hernia todd nadine Anxiety Cancer (HCC) recently diagnos ed 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 Family History Medical History Relation Name Comments No Known Problems Father No Known Problems Maternal Grandfather Breast cancer Maternal Grandmother No Known Problems Mother No Known Problems Paternal Grandfather No Known Problems Paternal Grandmother Pancreatic cancer Sister Relation Name Status Comments Father Maternal Grandfather Maternal Grandmother Mother Alive Paternal Grandfather Paternal Grandmother Sister Alive Social History Tobacco Use Types Packs/Day Years Used Date Smoking Tobacco: Never Smokeless Tobacco: Never Tobacco Cessation:Counseling Given: Not Answered Alcohol Use Standard Drinks/Week Comments Yes 0 (1 standard drink = 0.6 oz pur e alcohol) 1x/month with dinner [facility] Utilities Answer Date Recorded In the past 12 months has th e electric, gas, oil, or water company threatened to shut off services in your home? No 02/04/2024 Social Connection and Isolat ion Panel [NHANES] Answer Date Recorded In a typical week, how many times do you talk on the phone with family, friends, or neighbors? More than three times a week 02/04/2024 How often do you get togethe r with friends or relatives? More than three times a week 02/04/2024 How often do you attend chur ch or mormon services? Never 02/04/2024 Do you belong to any clubs o r organizations such as mormonism groups, unions, fraternal or athletic groups, or school groups? No 02/04/2024 How often do you attend meet ings of the clubs or organizations you belong to? Never 02/04/2024 Are you , , di vorced, , never , or living with a partner? 02/04/2024 AUDIT-C Answer Date Recorded Q1: How often do you have a drink containing alcohol? Never 04/26/2024 Q2: How many drinks containi ng alcohol do you have on a typical day when you are drinking? Patient does not drink Q3: How often do you have si x or more drinks on one occasion? Never 04/26/2024 Overall Financial Resource Strain (CARDIA) Answe r Date Recorded How hard is it for you to pa y for the very basics like food, housing, medical care, and heating? Not hard at all 02/04/2024 Hunger Vital Sign Answer Date Recorded Within the past 12 months, y ou worried that your food would run out before you got the money to buy more. Never true 02/04/20 24 Within the past 12 months, t he food you bought just didn't last and you didn't have money to get more. Never true 02/04/2024 PRAPARE - Transportation Answer Date Re corded In the past 12 months, has l ack of transportation kept you from medical appointments or from getting medications? No 01/18 In the past 12 months, has l ack of transportation kept you from meetings, work, or from getting things needed for daily living? No 02/04/2024 Housing Stability Vital Sign Answer Jamison e Recorded In the last 12 months, was t here a time when you were not able to pay the mortgage or rent on time? No 02/04/2024 In the past 12 months, how m any times have you moved where you were living? 0 02/04/2024 At any time in the past 12 m [facility], were you homeless or living in a longterm (including now)? No 02/04/2024 Personal Safety Answer Date Recorded Have you ever been in or are you currently in a harmful physical or emotional relationship or is someone making you feel afraid or unsafe? Denies 02/04/2024 Comments No Sex and Gender Information Value Date Recorded Sex Assigned at Not on file Legal Sex Female 3:46 AM BOX FOLDING MACHINE OPERATOR Gender Identity Female 04/16/2021 7:44 PM BOX FOLDING MACHINE OPERATOR Sexual Orientation Straight 11/22/2018 7: 26 PM CDT Obstetrics History Last Filed Vital Signs Vital Sign Reading Time Taken Comments Blood Pressure 131/86 06/14/2024 2:28 PM BOX FOLDING MACHINE OPERATOR Pulse 88 06/14/2024 2:28 PM BOX FOLDING MACHINE OPERATOR Temperature 36.2 C (97.1 F) 06/14/2024 2:28 PM BOX FOLDING MACHINE OPERATOR Respiratory Rate 16 06/14/2024 2:28 PM BOX FOLDING MACHINE OPERATOR Oxygen Saturation 98% 06/14/2024 2:28 PM BOX FOLDING MACHINE OPERATOR Inhaled Oxygen Concentration - - Weight 73.9 kg (163 lb) 06/14/2024 2:28 PM BOX FOLDING MACHINE OPERATOR Height 157.5 cm (5' 2 ) 02/03/2024 8:00 PM CDT Body Mass Index 29.81 02/03/2024 8:00 PM CDT Plan of Treatment Health Maintenance Due Date Last Done Comments Hepatitis C Screening 1955 Osteoporosis Screening-Bone Density Scan 1955 Hepatitis B Screening 1972 Pneumococcal vaccine 65+ (1 of 2 - PCV) 1973 Zoster Vaccine (1 of 2) 04/16/2015 02/19/2015 Depression Screening 11/23/2018 11/23/2017 Breast Cancer Screening-Mammogram 12/07/2018 12/07/2017, 12/07/2017, 02/29/2016, Additional history exists Well Visit 65+ 2019 DTaP/Tdap/Td Vaccine (1 - Tdap) 08/30/2023 4 Influenza Vaccine (#1) 2023 03/01/2020, 2014 Fall Risk Assessment 02/05/2025 02/06/2024, 12/24/19 24 Colon Cancer Screening-Colonoscopy 12/16/2027 12/15/2017, 06/27/2015 Colon Cancer Screening-CT Colonography Discontinued 12/15/2017, 06/27/2015 Colon Cancer Screening-DNA Stool Discontinued 12/16/19 18, 06/27/2015 Colon Cancer Screening-FIT Discontinued 12/15/2017, Colon Cancer Screening-Sigmoidoscopy Discontinued 12/15/2017, 06/27/2015 Medical Devices Implanted Type Area Systems Support Officer Device Identifier Shelf Expiration Date Model / Serial / Lot Synthes 201.364.97 2mm 14mm Self Tap Self Retain Stardrive Cortex T6 Screw Bone - [id number] Implanted:Qty: 2 on 10/27/2017 by Hortencia Monte DPM at [facility] Right: First Toe Synthes I [id number] / / Synthes 201.366.97 2mm 16mm Self Tap Self Retain Stardrive Cortex T6 Screw Bone - [id number] Implanted:Qty: 1 on 10/27/2017 by Hortencia Monte DPM at [facility] Right: First Toe Synthes I [id number] / / [employer] At2-C26-S Acutrak 2 2.5-2.8mm 26mm Headless Self Cut Cannulated Variable - [id number] Implanted:Qty: 1 on 11/09/2018 by Gustavo Lacy MD at [facility] [employer] AT2-C26-S / / [employer] At2-C26-S Acutrak 2 2.5-2.8mm 26mm Headless Self Cut Cannulated Variable - [id number] Implanted:Qty: 1 on 02/01/2019 by Gustavo Lacy MD at [facility] Right: Index Finger [employer] [id number] 01/26/2025 AT2-C26-S / / [id number] Procedures Procedure Name Priority Date/Time Associated Diagnosis Comments EGFR Routine 06/14/2024 2:19 PM BOX FOLDING MACHINE OPERATOR Malignant neoplasm of upper lobe of right lung (HCC) DIFFERENTIAL AUTO Routine 06/14/2024 2:1 9 PM BOX FOLDING MACHINE OPERATOR Malignant neoplasm of upper lobe of right lung (HCC) COMPREHENSIVE METABOLIC PANEL Routine 06/14/2024 2:19 PM BOX FOLDING MACHINE OPERATOR Malignant neoplasm of upper lobe of right lung (HCC) CBC WITH AUTO DIFFERENTIAL Routine 06/14/2024 2:19 PM BOX FOLDING MACHINE OPERATOR Malignant neoplasm of upper lobe of right lung (HCC) EGFR Routine 05/17/2024 2:07 PM BOX FOLDING MACHINE OPERATOR Malignant neoplasm of upper lobe of right lung (HCC) DIFFERENTIAL AUTO Routine 05/17/2024 2:0 7 PM BOX FOLDING MACHINE OPERATOR Malignant neoplasm of upper lobe of right lung (HCC) CBC WITH AUTO DIFFERENTIAL Routine 05/17/2024 2:07 PM BOX FOLDING MACHINE OPERATOR Malignant neoplasm of upper lobe of right lung (HCC) COMPREHENSIVE METABOLIC PANEL Routine 05/17/2024 2:07 PM BOX FOLDING MACHINE OPERATOR Malignant neoplasm of upper lobe of right lung (HCC) EGFR Routine 04/26/2024 10:07 AM BOX FOLDING MACHINE OPERATOR Malignant neoplasm of upper lobe of right lung (HCC) DIFFERENTIAL AUTO Routine 04/26/2024 10: 07 AM BOX FOLDING MACHINE OPERATOR Malignant neoplasm of upper lobe of right lung (HCC) CBC WITH AUTO DIFFERENTIAL Routine 04/26/2024 10:07 AM BOX FOLDING MACHINE OPERATOR Malignant neoplasm of upper lobe of right lung (HCC) COMPREHENSIVE METABOLIC PANEL Routine 04/26/2024 10:07 AM BOX FOLDING MACHINE OPERATOR Malignant neoplasm of upper lobe of right lung (HCC) CT CHEST ABDOMEN W CONTRAST Schedule Routine, Read Routine (OP Routine) 04/19/2024 11:26 AM BOX FOLDING MACHINE OPERATOR Malignant neoplasm of upper lobe of right lung (HCC) EGFR STAT 03/29/2024 9:52 AM BOX FOLDING MACHINE OPERATOR Malignant neoplasm of upper lobe of right lung (HCC) DIFFERENTIAL AUTO Routine 03/29/2024 9:5 2 AM BOX FOLDING MACHINE OPERATOR Malignant neoplasm of upper lobe of right lung (HCC) CBC WITH AUTO DIFFERENTIAL Routine 03/29/2024 9:52 AM BOX FOLDING MACHINE OPERATOR Malignant neoplasm of upper lobe of right lung (HCC) COMPREHENSIVE METABOLIC PANEL STAT 03/29/2024 9:52 AM BOX FOLDING MACHINE OPERATOR Malignant neoplasm of upper lobe of right lung (HCC) COLONOSCOPY 12/15/2017 8:46 AM CDT SCREENING MAMMOGRAM BILATERAL W MIKI Schedule Routine, Read Routine (OP Routine) 12/07/2017 12:52 PM CDT Encounter for screening mammogram for malignant neoplasm of breast from Last 3 Months or Most Recently Relevant to Health Maintenance Results * eGFR (06/14/2024 2:19 PM BOX FOLDING MACHINE OPERATOR) eGFR 69 >=60 mL/min/1. 73 m2 Comment: Interpretive Data Reference Interval Normal >/= 90 mL/min/1.73m2 Mildly decreased* 60 - 89 mL/min/1.73m2 Mildly to moderately decreased 45 - 59 mL/min/1.73m2 Moderately to severely decreased 30 - 44 mL/min/1.73m2 Severely decreased 15 - 29 mL/min/1.73m2 Kidney Failure < 15 mL/min/1.73m2 *Relative to young adult level Estimated glomerular filtration rate is determined by the 2020 CKD-EPI equation recommended by the National Kidney Foundation (A Unifying Approach to GFR Estimation: Recommendations of the NKF-ASK Task Force on Reassessing the Inclusion of Race in Diagnosing Kidney Disease, JASN 2020). The CKD-EPI equation should not be used for patients with unstable renal function and has not been validated in children and those over 70. Current interpretive data was last reviewed 2021. Testing performed by: [facility], [address] [place] [address], [place]., [address] Blood 06/14/2024 2:19 PM BOX FOLDING MACHINE OPERATOR 06/14/2024 2:22 PM BOX FOLDING MACHINE OPERATOR us Jessee Montoya MD PhD LAB BLOOD ORDERABLES Final Result [facility] [address] [facility] [place] [address] * Differential, auto (06/14/2024 2:19 PM BOX FOLDING MACHINE OPERATOR) Neutrophil abs 2.6 1.5 - 6.5 K/cumm Comment:Testing performed by : [address] [address] Imm gran abs 0.0 0.0 - 0.1 K/cumm [facility]IO Comment:Testing performed by : [address] [address] Lymphocyte abs 1.2 0.8 - 3.3 K/cumm [facility]IO Comment:Testing performed by : [address] [address] Monocyte abs 0.5 0.2 - 0.8 K/cumm [facility]IO Comment:Testing performed by : [address] [address] Eosinophil abs 0.1 0.0 - 0.5 K/cumm [facility]IO Comment:Testing performed by : [address] [address] Basophil abs 0.0 0.0 - 0.1 K/cumm [facility]IO Comment:Testing performed by : [address] [address] Neutrophil pct 58.7 % [facility] Comment: Interpretive Data Percent cell count reference ranges are not reported, since discordance with absolute values may lead to misinterpretation of CBC data. Current Interpretive Data was last revised on 2017. Testing performed by: [address] [address] Imm gran pct 0.2 % [facility] Comment: Interpretive Data Percent cell count reference ranges are not reported, since discordance with absolute values may lead to misinterpretation of CBC data. Current Interpretive Data was last revised on 2017. Testing performed by: [address] [address] Lymphocyte pct 27.4 % [facility] Comment: Interpretive Data Percent cell count reference ranges are not reported, since discordance with absolute values may lead to misinterpretation of CBC data. Current Interpretive Data was last revised on 2017. Testing performed by: [address] [address] Monocyte pct 11.9 % [facility] Comment: Interpretive Data Percent cell count reference ranges are not reported, since discordance with absolute values may lead to misinterpretation of CBC data. Current Interpretive Data was last revised on 2017. Testing performed by: [address] [address] Eosinophil pct 1.1 % [facility] Comment: Interpretive Data Percent cell count reference ranges are not reported, since discordance with absolute values may lead to misinterpretation of CBC data. Current Interpretive Data was last revised on 2017. Testing performed by: [address] [address] Basophil pct 0.7 % [facility] Comment: Interpretive Data Percent cell count reference ranges are not reported, since discordance with absolute values may lead to misinterpretation of CBC data. Current Interpretive Data was last revised on 2017. Testing performed by: [address] [address] Blood 06/14/2024 2:19 PM BOX FOLDING MACHINE OPERATOR 06/14/2024 2:22 PM BOX FOLDING MACHINE OPERATOR us Jessee Montoya MD PhD LAB BLOOD ORDERABLES Final Result [facility] [address] [facility] [place] [address] * (ABNORMAL) CBC with auto differential (06/14/2024 2:19 PM BOX FOLDING MACHINE OPERATOR) Pathologist [facility] WBC 4.5 3.8 - 9.9 K/cumm Comment:Testing performed by : [address] [address] Hgb 11.8(L) 11.9 - 15.5 g/dL [facility]IO Comment:Testing performed by : [address], [address] Hct 35.2(L) 35.6 - 45.5 % [facility] Comment:Testing performed by : [address] [address] Plt 229 150 - 400 K/cumm [facility]IO Comment:Testing performed by : [address] [address] MPV 8.5(L) 9.1 - 12.3 fL [facility] Comment:Testing performed by : [address], [address] RBC 3.89(L) 3.90 - 5.20 M/cumm [facility]IO Comment:Testing performed by : [address] [address] MCV 90.5 81.3 - 96.4 fL [facility] Comment:Testing performed by : [address] [address] MCH 30.3 27.1 - 33.3 pg [facility]IO Comment:Testing performed by : [address] [address] MCHC 33.5 32.3 - 35.7 g/dL [facility]IO Comment:Testing performed by : [address], [address] RDW CV 13.0 11.1 - 14.9 % [facility] Comment:Testing performed by : [address], [address] RDW SD 43.3 35.7 - 48.1 fL [facility] Comment:Testing performed by : [address] [address] NRBC abs 0.00 0.00 - 0.01 K/cumm [facility]IO Comment:Testing performed by : [address] [address] Blood 06/14/2024 2:19 PM BOX FOLDING MACHINE OPERATOR 06/14/2024 2:22 PM BOX FOLDING MACHINE OPERATOR us Jessee Montoya MD PhD LAB BLOOD ORDERABLES Final Result [facility] [address] [facility] Department of Laboratories [place], [place] [id number] * Comprehensive metabolic panel (06/14/2024 2:19 PM BOX FOLDING MACHINE OPERATOR) Sodium 140 135 - 145 mmol/L Comment:Testing performed by : [address] [address] Potassium, pl 3.9 3.3 - 4.9 mmol/L [facility] Comment:Testing performed by : [address] [address] Chloride 103 97 - 110 mmol/L [facility] Comment:Testing performed by : [address] [address] CO2 25 22 - 32 mmol/L [facility] Comment:Testing performed by : [address] [address] Anion gap 12 2 - 15 mmol/L [facility] Comment:Testing performed by : [address] [address] BUN 15 6 - 25 mg/dL [facility] Comment:Testing performed by : [address] [address] Creatinine 0.90 0.60 - 1.10 mg/dL [facility] Comment:Testing performed by : [address] [address] Glucose 105 70 - 199 mg/dL [facility] Comment: Interpretive Data Fasting glucose >/= 126 mg/dl is diagnostic for diabetes. Fasting is defined as no caloric intake for at least 8 hours. Fasting glucose between 100 mg/dl to 125 mg/dl is diagnostic of prediabetes. In a patient with classic symptoms of hyperglycemia or hyperglycemic crisis, a random glucose >/= 200 mg/dl is diagnostic for diabetes. In the absence of unequivocal hyperglycemia, results should be confirmed by repeat testing. The classification and Diagnosis of Diabetes Diabetes Care 2021; 46: S19-S40. Current interpretive data was last revised 2022. Testing performed by: [address] [place] [address] Calcium 9.5 8.5 - 10.3 mg/dL [facility] Comment:Testing performed by : [address] [address] Bilirubin, total <0.2 0.1 - 1.2 mg/dL [facility]IO Comment:Testing performed by : [address] [address] Protein, pl 6.8 6.5 - 8.5 g/dL [facility]IO Comment:Testing performed by : [address] [address] Albumin 4.0 3.5 - 5.0 g/dL [facility] Comment:Testing performed by : [address] [address] Alk phos 95 40 - 130 Units/L [facility] Comment:Testing performed by : [address] [address] ALT 15 7 - 45 Units/L [facility] Comment:Testing performed by : [address] [address] AST 16 10 - 45 Units/L [facility] Comment:Testing performed by : [address] [address] Blood 06/14/2024 2:19 PM BOX FOLDING MACHINE OPERATOR 06/14/2024 2:22 PM BOX FOLDING MACHINE OPERATOR us Jessee Montoya MD PhD LAB BLOOD ORDERABLES Final Result [facility] [facility] Department of Laboratories [place], [place] [id number] * eGFR (05/17/2024 2:07 PM BOX FOLDING MACHINE OPERATOR) eGFR 79 >=60 mL/min/1. 73 m2 Comment: Interpretive Data Reference Interval Normal >/= 90 mL/min/1.73m2 Mildly decreased* 60 - 89 mL/min/1.73m2 Mildly to moderately decreased 45 - 59 mL/min/1.73m2 Moderately to severely decreased 30 - 44 mL/min/1.73m2 Severely decreased 15 - 29 mL/min/1.73m2 Kidney Failure < 15 mL/min/1.73m2 *Relative to young adult level Estimated glomerular filtration rate is determined by the 2020 CKD-EPI equation recommended by the National Kidney Foundation (A Unifying Approach to GFR Estimation: Recommendations of the NKF-ASK Task Force on Reassessing the Inclusion of Race in Diagnosing Kidney Disease, JASN 2020). The CKD-EPI equation should not be used for patients with unstable renal function and has not been validated in children and those over 70. Current interpretive data was last reviewed 2021. Testing performed by: [address] [address] Blood 05/17/2024 2:07 PM BOX FOLDING MACHINE OPERATOR 05/17/2024 2:20 PM BOX FOLDING MACHINE OPERATOR us Jessee Montoya MD PhD LAB BLOOD ORDERABLES Final Result [facility] [facility] [place] [address] * Differential, auto (05/17/2024 2:07 PM BOX FOLDING MACHINE OPERATOR) Neutrophil abs 2.5 1.5 - 6.5 K/cumm Comment:Testing performed by : [address] [address] Imm gran abs 0.0 0.0 - 0.1 K/cumm [facility]IO Comment:Testing performed by : [address] [address] Lymphocyte abs 1.3 0.8 - 3.3 K/cumm ANTONIO Comment:Testing performed by : [address] [address] Monocyte abs 0.5 0.2 - 0.8 K/cumm ANTONIO Comment:Testing performed by : [address] [address] Eosinophil abs 0.1 0.0 - 0.5 K/cumm ANTONIO Comment:Testing performed by : [address] [address] Basophil abs 0.0 0.0 - 0.1 K/cumm ANTONIO Comment:Testing performed by : [address] [address] Neutrophil pct 57.7 % [facility] Comment: Interpretive Data Percent cell count reference ranges are not reported, since discordance with absolute values may lead to misinterpretation of CBC data. Current Interpretive Data was last revised on 2017. Testing performed by: [address] [address] Imm gran pct 0.2 % [facility] Comment: Interpretive Data Percent cell count reference ranges are not reported, since discordance with absolute values may lead to misinterpretation of CBC data. Current Interpretive Data was last revised on 2017. Testing performed by: [address] [address] Lymphocyte pct 28.9 % [facility] Comment: Interpretive Data Percent cell count reference ranges are not reported, since discordance with absolute values may lead to misinterpretation of CBC data. Current Interpretive Data was last revised on 2017. Testing performed by: [address] [address] Monocyte pct 11.1 % [facility] Comment: Interpretive Data Percent cell count reference ranges are not reported, since discordance with absolute values may lead to misinterpretation of CBC data. Current Interpretive Data was last revised on 2017. Testing performed by: [address] [address] Eosinophil pct 1.6 % [facility] Comment: Interpretive Data Percent cell count reference ranges are not reported, since discordance with absolute values may lead to misinterpretation of CBC data. Current Interpretive Data was last revised on 2017. Testing performed by: [address] [address] Basophil pct 0.5 % [facility] Comment: Interpretive Data Percent cell count reference ranges are not reported, since discordance with absolute values may lead to misinterpretation of CBC data. Current Interpretive Data was last revised on 2017. Testing performed by: [address] [address] Blood 05/17/2024 2:07 PM BOX FOLDING MACHINE OPERATOR 05/17/2024 2:20 PM BOX FOLDING MACHINE OPERATOR us Jessee Montoya MD PhD LAB BLOOD ORDERABLES Final Result [facility] [address] [facility] [place] [address] * (ABNORMAL) CBC with auto differential (05/17/2024 2:07 PM BOX FOLDING MACHINE OPERATOR) WBC 4.3 3.8 - 9.9 K/cumm Comment:Testing performed by : [address] [address] Hgb 12.3 11.9 - 15.5 g/dL ANTONIO Comment:Testing performed by : [address] [address] Hct 36.6 35.6 - 45.5 % ANTONIO Comment:Testing performed by : [address] [address] Plt 262 150 - 400 K/cumm ANTONIO Comment:Testing performed by : [address] [address] MPV 8.8(L) 9.1 - 12.3 fL ANTONIO Comment:Testing performed by : [address] [address] RBC 3.95 3.90 - 5.20 M/cumm ANTONIO Comment:Testing performed by : [address] [address] MCV 92.7 81.3 - 96.4 fL ANTONIO Comment:Testing performed by : [address] [address] MCH 31.1 27.1 - 33.3 pg ANTONIO CORRALES Comment:Testing performed by : [address] [address] MCHC 33.6 32.3 - 35.7 g/dL ANTONIO Comment:Testing performed by : [address] [address] RDW CV 13.0 11.1 - 14.9 % ANTONIO CORRALES Comment:Testing performed by : [address] [address] RDW SD 44.3 35.7 - 48.1 fL ANTONIO CORRALES Comment:Testing performed by : [address] [address] NRBC abs 0.00 0.00 - 0.01 K/cumm ANTONIO CORRALES Comment:Testing performed by : [address] [address] Blood 05/17/2024 2:07 PM BOX FOLDING MACHINE OPERATOR 05/17/2024 2:20 PM BOX FOLDING MACHINE OPERATOR us Jessee Montoya MD PhD LAB BLOOD ORDERABLES Final Result ANTONIO [address] [facility] [place] [address] * (ABNORMAL) Comprehensive metabolic panel (05/17/2024 2:07 PM BOX FOLDING MACHINE OPERATOR) Sodium 140 135 - 145 mmol/L Comment:Testing performed by : [address] [address] Potassium, pl 4.2 3.3 - 4.9 mmol/L ANTONIO CORRALES Comment:Testing performed by : [address] [address] Chloride 102 97 - 110 mmol/L ANTONIO CORRALES Comment:Testing performed by : [address] [address] CO2 28 22 - 32 mmol/L ANTONIO CORRALES Comment:Testing performed by : [address] [address] Anion gap 10 2 - 15 mmol/L ANTONIO CORRALES Comment:Testing performed by : [address] [address] BUN 13 6 - 25 mg/dL ANTONIO CORRALES Comment:Testing performed by : [address] [address] Creatinine 0.80 0.60 - 1.10 mg/dL ANTONIO CORRALES Comment:Testing performed by : [address] [address] Glucose 122 70 - 199 mg/dL ANTONIO Comment: Interpretive Data Fasting glucose >/= 126 mg/dl is diagnostic for diabetes. Fasting is defined as no caloric intake for at least 8 hours. Fasting glucose between 100 mg/dl to 125 mg/dl is diagnostic of prediabetes. In a patient with classic symptoms of hyperglycemia or hyperglycemic crisis, a random glucose >/= 200 mg/dl is diagnostic for diabetes. In the absence of unequivocal hyperglycemia, results should be confirmed by repeat testing. The classification and Diagnosis of Diabetes Diabetes Care 2021; 46: S19-S40. Current interpretive data was last revised 2022. Testing performed by: [address] [address] Calcium 9.5 8.5 - 10.3 mg/dL ANTONIO Comment:Testing performed by : [address] [address] Bilirubin, total 0.2 0.1 - 1.2 mg/dL ANTONIO Comment:Testing performed by : [address] [address] Protein, pl 7.3 6.5 - 8.5 g/dL ANTONIO Comment:Testing performed by : [address] [address] Albumin 4.0 3.5 - 5.0 g/dL ANTONIO Comment:Testing performed by : [address] [address] Alk phos 114 40 - 130 Units/L ANTONIO Comment:Testing performed by : [address] [address] ALT 51(H) 7 - 45 Units/L ANTONIO Comment:Testing performed by : [address] [address] AST 23 10 - 45 Units/L ANTONIO Comment:Testing performed by : [address] [address] Blood 05/17/2024 2:07 PM BOX FOLDING MACHINE OPERATOR 05/17/2024 2:20 PM BOX FOLDING MACHINE OPERATOR us Jessee Montoya MD PhD LAB BLOOD ORDERABLES Final Result Performing Organization Address City/[facility]/ZIP Co de Phone Number ANTONIO [address] [place] [address] * eGFR (04/26/2024 10:07 AM BOX FOLDING MACHINE OPERATOR) eGFR 79 >=60 mL/min/1. 73 m2 Comment: Interpretive Data Reference Interval Normal >/= 90 mL/min/1.73m2 Mildly decreased* 60 - 89 mL/min/1.73m2 Mildly to moderately decreased 45 - 59 mL/min/1.73m2 Moderately to severely decreased 30 - 44 mL/min/1.73m2 Severely decreased 15 - 29 mL/min/1.73m2 Kidney Failure < 15 mL/min/1.73m2 *Relative to young adult level Estimated glomerular filtration rate is determined by the 2020 CKD-EPI equation recommended by the National Kidney [employer] (A Unifying Approach to GFR Estimation: Recommendations of the NKF-ASK Task Force on Reassessing the Inclusion of Race in Diagnosing Kidney Disease, JASN 2020). The CKD-EPI equation should not be used for patients with unstable renal function and has not been validated in children and those over 70. Current interpretive data was last reviewed 2021. Testing performed by: [address] [address] Blood 04/26/2024 10:0 7 AM BOX FOLDING MACHINE OPERATOR 04/26/2024 10:13 AM BOX FOLDING MACHINE OPERATOR us Jessee Montoya MD PhD LAB BLOOD ORDERABLES Final Result ANTONIO [facility] [place] [employer] [place] [address] * Differential, auto (04/26/2024 10:07 AM BOX FOLDING MACHINE OPERATOR) Neutrophil abs 4.0 1.5 - 6.5 K/cumm Comment:Testing performed by : [address] [address] Imm gran abs 0.0 0.0 - 0.1 K/cumm CERNER Comment:Testing performed by : [address] [address] Lymphocyte abs 1.4 0.8 - 3.3 K/cumm ANTONIO Comment:Testing performed by : [address] [address] Monocyte abs 0.5 0.2 - 0.8 K/cumm ANTONIO Comment:Testing performed by : [address] [address] Eosinophil abs 0.0 0.0 - 0.5 K/cumm ANTONIO Comment:Testing performed by : [address] [address] Basophil abs 0.1 0.0 - 0.1 K/cumm [place] Comment:Testing performed by : [address] [address] Neutrophil pct 66.0 % [facility] Comment: Interpretive Data Percent cell count reference ranges are not reported, since discordance with absolute values may lead to misinterpretation of CBC data. Current Interpretive Data was last revised on 2017. Testing performed by: [address] [address] Imm gran pct 0.3 % [facility] Comment: Interpretive Data Percent cell count reference ranges are not reported, since discordance with absolute values may lead to misinterpretation of CBC data. Current Interpretive Data was last revised on 2017. Testing performed by: [address] [address] Lymphocyte pct 24.0 % [facility] Comment: Interpretive Data Percent cell count reference ranges are not reported, since discordance with absolute values may lead to misinterpretation of CBC data. Current Interpretive Data was last revised on 2017. Testing performed by: [address] [address] Monocyte pct 8.0 % [facility] Comment: Interpretive Data Percent cell count reference ranges are not reported, since discordance with absolute values may lead to misinterpretation of CBC data. Current Interpretive Data was last revised on 2017. Testing performed by: [address] [address] Eosinophil pct 0.7 % ANTONIO Comment: Interpretive Data Percent cell count reference ranges are not reported, since discordance with absolute values may lead to misinterpretation of CBC data. Current Interpretive Data was last revised on 2017. Testing performed by: [address] [address] Basophil pct 1.0 % ANTONIO CORRALES Comment: Interpretive Data Percent cell count reference ranges are not reported, since discordance with absolute values may lead to misinterpretation of CBC data. Current Interpretive Data was last revised on 2017. Testing performed by: [address] [address] Blood 04/26/2024 10:0 7 AM BOX FOLDING MACHINE OPERATOR 04/26/2024 10:13 AM BOX FOLDING MACHINE OPERATOR us Jessee Montoya MD PhD LAB BLOOD ORDERABLES Final Result [facility] [address] [facility] [place] [address] * (ABNORMAL) CBC with auto differential (04/26/2024 10:07 AM BOX FOLDING MACHINE OPERATOR) WBC 6.0 3.8 - 9.9 K/cumm Comment:Testing performed by : [address] [address] Hgb 13.3 11.9 - 15.5 g/dL ANTONIO CORRALES Comment:Testing performed by : [address] [address] Hct 39.7 35.6 - 45.5 % ANTONIO CORRALES Comment:Testing performed by : [address] [address] Plt 327 150 - 400 K/cumm ANTONIO CORRALES Comment:Testing performed by : [address] [address] MPV 8.2(L) 9.1 - 12.3 fL ANTONIO CORRALES Comment:Testing performed by : [address] [address] RBC 4.31 3.90 - 5.20 M/cumm ANTONIO CORRALES Comment:Testing performed by : [address] [address] MCV 92.1 81.3 - 96.4 fL ANTONIO CORRALES Comment:Testing performed by : [address] [address] MCH 30.9 27.1 - 33.3 pg ANTONIO CORRALES Comment:Testing performed by : [address] [address] MCHC 33.5 32.3 - 35.7 g/dL ANTONIO CORRALES Comment:Testing performed by : [address] [address] RDW CV 12.9 11.1 - 14.9 % ANTONIO CORRALES Comment:Testing performed by : [address] [address] RDW SD 43.6 35.7 - 48.1 fL ANTONIO CORRALES Comment:Testing performed by : [address] [address] NRBC abs 0.00 0.00 - 0.01 K/cumm ANTONIO Comment:Testing performed by : [address] [address] Blood 04/26/2024 10:0 7 AM BOX FOLDING MACHINE OPERATOR 04/26/2024 10:13 AM BOX FOLDING MACHINE OPERATOR us Jessee Montoya MD PhD LAB BLOOD ORDERABLES Final Result ANTONIO [address] [facility] Department [place] [address] * Comprehensive metabolic panel (04/26/2024 10:07 AM BOX FOLDING MACHINE OPERATOR) Sodium 140 135 - 145 mmol/L Comment:Testing performed by : [address] [address] Potassium, pl 4.5 3.3 - 4.9 mmol/L ANTONIO CORRALES Comment:Testing performed by : [address] [address] Chloride 103 97 - 110 mmol/L ANTONIO Comment:Testing performed by : [address] [address] CO2 27 22 - 32 mmol/L ANTONIO Comment:Testing performed by : [address] [address] Anion gap 10 2 - 15 mmol/L ANTONIO Comment:Testing performed by : [address] [address] BUN 19 6 - 25 mg/dL ANTONIO Comment:Testing performed by : [address], [place]., [address] Creatinine 0.80 0.60 - 1.10 mg/dL ANTONIO Comment:Testing performed by : [address] [address] Glucose 96 70 - 199 mg/dL ANTONIO Comment: Interpretive Data Fasting glucose >/= 126 mg/dl is diagnostic for diabetes. Fasting is defined as no caloric intake for at least 8 hours. Fasting glucose between 100 mg/dl to 125 mg/dl is diagnostic of prediabetes. In a patient with classic symptoms of hyperglycemia or hyperglycemic crisis, a random glucose >/= 200 mg/dl is diagnostic for diabetes. In the absence of unequivocal hyperglycemia, results should be confirmed by repeat testing. The classification and Diagnosis of Diabetes Diabetes Care 202; 46: S19-S40. Current interpretive data was last revised 2022. Testing performed by: [address] [address] Calcium 9.5 8.5 - 10.3 mg/dL ANTONIO Comment:Testing performed by : [address] [address] Bilirubin, total 0.2 0.1 - 1.2 mg/dL ANTONIO Comment:Testing performed by : [address] [address] Protein, pl 7.4 6.5 - 8.5 g/dL ANTONIO Comment:Testing performed by : [address] [address] Albumin 4.2 3.5 - 5.0 g/dL ANTONIO Comment:Testing performed by : [address] [address] Alk phos 122 40 - 130 Units/L ANTONIO Comment:Testing performed by : [address] [address] ALT 12 7 - 45 Units/L ANTONIO Comment:Testing performed by : [address] [address] AST 15 10 - 45 Units/L ANTONIO Comment:Testing performed by : [address] [address] Blood 04/26/2024 10:0 7 AM BOX FOLDING MACHINE OPERATOR 04/26/2024 10:13 AM BOX FOLDING MACHINE OPERATOR us Jessee Montoya MD PhD LAB BLOOD ORDERABLES Final Result ANTONIO [address] [facility] [place] [address] * CT Chest Abdomen W Contrast (04/19/2024 11:26 AM BOX FOLDING MACHINE OPERATOR) Anatomical Region Laterality Modality Body N/A Computed Tomogra phy 04/24/2024 2:17 PM BOX FOLDING MACHINE OPERATOR Narrative 04/24/2024 2:41 PM BOX FOLDING MACHINE OPERATOR EXAM DESCRIPTION: CT CHEST ABDOMEN W CONTRAST REASON FOR STUDY: Restaging of lung cancer, Malignant neoplasm of upper lobe of right lung (HCC) Dx 2023, surgery Oct TECHNIQUE: CT scan of the chest and abdomen performed with intravenous and without oral contrast using helical scanning technique with dynamic intravenous contrast injection. Reconstructed coronal and sagittal MPR images reviewed. All images stored on PACS. Automated exposure control was used as a dose optimization technique for this examination. CONTRAST TYPE/DOSE: 100mL of IOVERSOL 350 MG IODINE/ML INTRAVENOUS SYRINGE was injected via the intravenous COMPARISON: 01/21/2024 REFERENCE: Per ACR white paper recommendations, unless otherwise specified no follow-up imaging is recommended for incidental renal and adrenal lesions per consensus recommendations based on imaging criteria. Further lab evaluation could be pursued based on clinical findings. FINDINGS: CHEST LUNGS: The patient is status post right upper lobectomy. There is some scarring in the right middle and lower pole. No nodules or masses. No pneumonia. PLEURA: No effusion. No pneumothorax. MEDIASTINUM/AURE: No identified masses or abnormal nodes. HEART: Heart size is normal with no pericardial effusion. VASCULATURE CHEST: No thoracic aortic aneurysm. AXILLA: No adenopathy. CHEST WALL: No masses. No subcutaneous air. HARDWARE/LIFELINES: None. MUSCULOSKELETAL CHEST: No significant abnormality. ABDOMEN LIVER: Normal size. A stable hypodensity in the right lobe is likely a cyst. GALLBLADDER: Cholecystectomy. BILE DUCTS: No intrahepatic or extrahepatic ductal dilatation. SPLEEN: Normal size. No focal lesions. PANCREAS: No identified cystic or solid masses. No significant calcifications. No adjacent inflammation or peripancreatic fluid collections. Pancreatic duct not dilated. ADRENALS: Thickening of the left adrenal gland is likely secondary to hyperplasia. KIDNEYS/URINARY TRACT: Tiny bilateral renal hypodensities are most likely cysts. No stones. No hydronephrosis or hydroureter. Symmetric enhancement. GI: No dilated bowel loops. No obvious wall thickening. Normal appendix. No significant diverticular disease. PERITONEUM: No ascites or free air. RETROPERITONEUM: No mass or adenopathy. VASCULATURE ABDOMEN: No abdominal aortic aneurysm. MUSCULOSKELETAL ABDOMEN: No acute finding. OTHER: No significant abnormality. IMPRESSION: Status post right upper lobectomy. No evidence of metastatic disease in the chest or abdomen. Additional findings as above. THIS IS AN ELECTRONICALLY VERIFIED FINAL REPORT 04/24/2024 2:41 PM - Electronically signed by Ronal Brown M.D. LL: LL Report ID: [id number] Reading Location: [id number] Procedure Note Ronal Brown MD - 04/24/2024 EXAM DESCRIPTION: CT CHEST ABDOMEN W CONTRAST REASON FOR STUDY: Restaging of lung cancer, Malignant neoplasm of upper lobe of right lung(HCC) Dx 2023, surgery Oct TECHNIQUE: CT scan of the chest and abdomen performed with intravenousand without oral contrast using helical scanning technique with dynamic intravenous contrast injection. Reconstructed coronal and sagittal MPRimages reviewed. All images stored on PACS. Automated exposure control wasused as a dose optimization technique for this examination. CONTRAST TYPE/DOSE: 100mL of IOVERSOL 350 MG IODINE/ML INTRAVENOUSSYRINGE was injected via the intravenous COMPARISON: 01/21/2024 REFERENCE: Per ACR white paper recommendations, unless otherwise specifiedno follow-up imaging is recommended for incidental renal and adrenal lesionsper consensus recommendations based on imaging criteria. Further labevaluation could be pursued based on clinical findings. FINDINGS: CHEST LUNGS: The patient is status post right upper lobectomy. There is some scarring in the right middle and lower pole. No nodules or masses. No pneumonia. PLEURA: No effusion. No pneumothorax. MEDIASTINUM/AURE: No identified masses or abnormal nodes. HEART: Heart size is normal with no pericardial effusion. VASCULATURE CHEST: No thoracic aortic aneurysm. AXILLA: No adenopathy. CHEST WALL: No masses. No subcutaneous air. HARDWARE/LIFELINES: None. MUSCULOSKELETAL CHEST: No significant abnormality. ABDOMEN LIVER: Normal size. A stable hypodensity in the right lobe is likely acyst. GALLBLADDER: Cholecystectomy. BILE DUCTS: No intrahepatic or extrahepatic ductal dilatation. SPLEEN: Normal size. No focal lesions. PANCREAS: No identified cystic or solid masses. No significant calcifications. No adjacent inflammation or peripancreatic fluidcollections. Pancreatic duct not dilated. ADRENALS: Thickening of the left adrenal gland is likely secondary to hyperplasia. KIDNEYS/URINARY TRACT: Tiny bilateral renal hypodensities are most likely cysts. No stones. No hydronephrosis or hydroureter. Symmetricenhancement. GI: No dilated bowel loops. No obvious wall thickening. Normal appendix.No significant diverticular disease. PERITONEUM: No ascites or free air. RETROPERITONEUM: No mass or adenopathy. VASCULATURE ABDOMEN: No abdominal aortic aneurysm. MUSCULOSKELETAL ABDOMEN: No acute finding. OTHER: No significant abnormality. IMPRESSION: Status post right upper lobectomy. No evidence of metastatic disease in the chest or abdomen. Additional findings as above. THIS IS AN ELECTRONICALLY VERIFIED FINAL REPORT 04/24/2024 2:41 PM - Electronically signed by Ronal Brown M.D. LL: DAVID Report ID: [id number] Reading Location: [place] [address] us Jessee Montoya MD PhD IMG CT PROCEDURES Fin al Result * eGFR (03/29/2024 9:52 AM BOX FOLDING MACHINE OPERATOR) Pathologist [facility] eGFR >90 >=60 mL/min/1. 73 m2 Comment: Interpretive Data Reference Interval Normal >/= 90 mL/min/1.73m2 Mildly decreased* 60 - 89 mL/min/1.73m2 Mildly to moderately decreased 45 - 59 mL/min/1.73m2 Moderately to severely decreased 30 - 44 mL/min/1.73m2 Severely decreased 15 - 29 mL/min/1.73m2 Kidney Failure < 15 mL/min/1.73m2 *Relative to young adult level Estimated glomerular filtration rate is determined by the 2020 CKD-EPI equation recommended by the National Kidney Foundation (A Unifying Approach to GFR Estimation: Recommendations of the NKF-ASK Task Force on Reassessing the Inclusion of Race in Diagnosing Kidney Disease, JASN 2020). The CKD-EPI equation should not be used for patients with unstable renal function and has not been validated in children and those over 70. Current interpretive data was last reviewed 2021. Testing performed by: [address] [address] Blood 03/29/2024 9:52 AM BOX FOLDING MACHINE OPERATOR 03/29/2024 9:58 AM BOX FOLDING MACHINE OPERATOR us Jessee Montoya MD PhD LAB BLOOD ORDERABLES Final Result [facility] [address] [facility] [place] [address] * Differential, auto (03/29/2024 9:52 AM BOX FOLDING MACHINE OPERATOR) Pathologist [facility] Neutrophil abs 2.8 1.5 - 6.5 K/cumm Comment:Testing performed by : [address] [address] Imm gran abs 0.0 0.0 - 0.1 K/cumm ANTONIO CORRALES Comment:Testing performed by : [address] [address] Lymphocyte abs 1.7 0.8 - 3.3 K/cumm ANTONIO CORRALES Comment:Testing performed by : [address] [address] Monocyte abs 0.5 0.2 - 0.8 K/cumm [facility] Comment:Testing performed by : [address] [address] Eosinophil abs 0.1 0.0 - 0.5 K/cumm [facility] Comment:Testing performed by : [address] [address] Basophil abs 0.0 0.0 - 0.1 K/cumm [facility] Comment:Testing performed by : [address] [address] Neutrophil pct 54.6 % [facility] Comment: Interpretive Data Percent cell count reference ranges are not reported, since discordance with absolute values may lead to misinterpretation of CBC data. Current Interpretive Data was last revised on 2017. Testing performed by: [address] [address] Imm gran pct 0.4 % [facility] Comment: Interpretive Data Percent cell count reference ranges are not reported, since discordance with absolute values may lead to misinterpretation of CBC data. Current Interpretive Data was last revised on 2017. Testing performed by: [address] [address] Lymphocyte pct 32.8 % [facility] Comment: Interpretive Data Percent cell count reference ranges are not reported, since discordance with absolute values may lead to misinterpretation of CBC data. Current Interpretive Data was last revised on 2017. Testing performed by: [address] [address] Monocyte pct 9.1 % [facility] Comment: Interpretive Data Percent cell count reference ranges are not reported, since discordance with absolute values may lead to misinterpretation of CBC data. Current Interpretive Data was last revised on 2017. Testing performed by: [address] [address] Eosinophil pct 2.5 % [facility] Comment: Interpretive Data Percent cell count reference ranges are not reported, since discordance with absolute values may lead to misinterpretation of CBC data. Current Interpretive Data was last revised on 2017. Testing performed by: [address] [place] [address] Basophil pct 0.6 % ANTONIO Comment: Interpretive Data Percent cell count reference ranges are not reported, since discordance with absolute values may lead to misinterpretation of CBC data. Current Interpretive Data was last revised on 2017. Testing performed by: [address] [address] Blood 03/29/2024 9:52 AM BOX FOLDING MACHINE OPERATOR 03/29/2024 9:58 AM BOX FOLDING MACHINE OPERATOR us Jessee Montoya MD PhD LAB BLOOD ORDERABLES Final Result ANTONIO [address] [facility] [place] [address] * (ABNORMAL) CBC with auto differential (03/29/2024 9:52 AM BOX FOLDING MACHINE OPERATOR) WBC 5.2 3.8 - 9.9 K/cumm Comment:Testing performed by : [address] [address] Hgb 12.6 11.9 - 15.5 g/dL ANTONIO Comment:Testing performed by : [address] [address] Hct 38.0 35.6 - 45.5 % ANTONIO Comment:Testing performed by : [address] [address] Plt 311 150 - 400 K/cumm ANTONIO Comment:Testing performed by : [address] [address] MPV 8.3(L) 9.1 - 12.3 fL ANTONIO Comment:Testing performed by : [address] [address] RBC 4.11 3.90 - 5.20 M/cumm ANTONIO CORRALES Comment:Testing performed by : [address] [address] MCV 92.5 81.3 - 96.4 fL ANTONIO CORRALES Comment:Testing performed by : [address] [address] MCH 30.7 27.1 - 33.3 pg ANTONIO CORRALES Comment:Testing performed by : [facility] [address] [place] [address]., [address] MCHC 33.2 32.3 - 35.7 g/dL ANTONIO CORRALES Comment:Testing performed by : [facility] [address] [place] [address], [place]., [address] RDW CV 13.0 11.1 - 14.9 % ANTONIO CORRALES Comment:Testing performed by : [address], [place]., [address] RDW SD 44.1 35.7 - 48.1 fL ANTONIO CORRALES Comment:Testing performed by : [address], [place]., [address] NRBC abs 0.00 0.00 - 0.01 K/cumm ANTONIO CORRALES Comment:Testing performed by : [facility] [address] [place] [address], [place]., [address] Blood 03/29/2024 9:52 AM BOX FOLDING MACHINE OPERATOR 03/29/2024 9:58 AM BOX FOLDING MACHINE OPERATOR us Jessee Montoya MD PhD LAB BLOOD ORDERABLES Final Result ANTONIO [address] [facility] Department of Laboratories [place], [place] [id number] * Comprehensive metabolic panel (03/29/2024 9:52 AM BOX FOLDING MACHINE OPERATOR) Sodium 142 135 - 145 mmol/L Comment:Testing performed by : [facility] [address] [place] [address]., [address] Potassium, pl 4.5 3.3 - 4.9 mmol/L ANTONIO CORRALES Comment:Testing performed by : [address] [address] Chloride 105 97 - 110 mmol/L ANTONIO CORRALES Comment:Testing performed by : [address] [address] CO2 28 22 - 32 mmol/L ANTONIO CORRALES Comment:Testing performed by : [address] [address] Anion gap 9 2 - 15 mmol/L ANTONIO CORRALES Comment:Testing performed by : [address] [address] BUN 15 6 - 25 mg/dL ANTONIO Comment:Testing performed by : [address] [address] Creatinine 0.70 0.60 - 1.10 mg/dL ANTONIO Comment:Testing performed by : [address] [address] Glucose 105 70 - 199 mg/dL ANTONIO Comment: Interpretive Data Fasting glucose >/= 126 mg/dl is diagnostic for diabetes. Fasting is defined as no caloric intake for at least 8 hours. Fasting glucose between 100 mg/dl to 125 mg/dl is diagnostic of prediabetes. In a patient with classic symptoms of hyperglycemia or hyperglycemic crisis, a random glucose >/= 200 mg/dl is diagnostic for diabetes. In the absence of unequivocal hyperglycemia, results should be confirmed by repeat testing. The classification and Diagnosis of Diabetes Diabetes Care 2021; 46: S19-S40. Current interpretive data was last revised 2022. Testing performed by: [address] [address] Calcium 9.4 8.5 - 10.3 mg/dL ANTONIO Comment:Testing performed by : [address] [address] Bilirubin, total 0.2 0.1 - 1.2 mg/dL ANTONIO Comment:Testing performed by : [address] [address] Protein, pl 7.3 6.5 - 8.5 g/dL ANTONIO Comment:Testing performed by : [address] [address] Albumin 4.2 3.5 - 5.0 g/dL ANTONIO Comment:Testing performed by : [address] [address] Alk phos 125 40 - 130 Units/L ANTONIO Comment:Testing performed by : [address] [address] ALT 11 7 - 45 Units/L ANTONIO Comment:Testing performed by : [address], [place]., [address] AST 15 10 - 45 Units/L ANTONIO Comment:Testing performed by : [address] [address] Blood 03/29/2024 9:52 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 Procedure Date: 12/15/2017 Procedure: Colonoscopy Indications: Rectal bleeding, Personal history of colonicpolyps Providers: Angel Luis Damon M.D., Medhat Chang (Anesthesia Staff), cA Payton RN Referring MD: Valentino Martinez MD Medicines: Monitored Anesthesia Care Complications: No immediate complications. Estimated blood loss: Minimal. Estimated Blood Loss: Estimated blood loss was minimal. Procedure: Pre-Anesthesia Assessment: - Prior to the procedure, a History and Physical was performed, and patient medications and allergieswere reviewed. The patient is competent. The risks and benefits of the procedure and the sedation optionsand risks were discussed with the patient. All questions were answered and informed consent was obtained. Patient identification and proposed procedure were verified by the physician, the nurse and the technical research scientist in the endoscopy suite. Mental Status Examination: alert and oriented. Airway Examination: normal oropharyngeal airway and neck mobility. Respiratory Examination: clear to auscultation. CV Examination: normal. Prophylactic Antibiotics: The patient does not require prophylactic antibiotics. Prior Anticoagulants: The patient has taken noprevious anticoagulant or antiplatelet agents. ASA Grade Assessment: II - A patient with mild systemicdisease. After reviewing the risks and benefits, the patientwas deemed in satisfactory condition to undergo the procedure. The anesthesia plan was to use monitored anesthesia care (MAC). Immediately prior to administration of medications, the patient was re-assessed for adequacy to receive sedatives. The heart rate, respiratory rate, oxygen saturations,blood pressure, adequacy of pulmonary ventilation, and response to care were monitored throughout the procedure. The physical status of the patient was re-assessed after the procedure. - The risks and benefits of the procedure and the sedation options and risks were discussed with the patient. All questions were answered and informed consent was obtained. After I obtained informed consent, the scope waspassed under direct vision. Throughout the procedure, the patient's blood pressure, pulse, and oxygensaturations were monitored continuously. The scope was passedunder direct vision. The Colonoscope was introducedthrough the anus and advanced to the the cecum, identifiedby appendiceal orifice and ileocecal valve. The colonoscopy was performed without difficulty. The patient tolerated the procedure well. The quality of the bowel preparation was good. The bowelpreparation used was SUPREP. Findings: A 3 mm polyp was found in the cecum. The polyp was sessile. The polyp was removed with a hot biopsy forceps. Resection and retrieval were complete. Estimated blood loss was minimal. Many diverticula were found in the sigmoid colon and descendingcolon. The exam was otherwise without abnormality on direct and retroflexion views. Impression: - One 3 mm polyp in the cecum, removed with a hot biopsy forceps. Resected and retrieved. - Diverticulosis in the sigmoid colon and in the descending colon. - The examination was otherwise normal on direct and retroflexion views. Recommendation: - Await pathology results. - Repeat colonoscopy in 5 years for surveillance. - High fiber diet. - No aspirin, ibuprofen, naproxen, or other non-steroidal anti-inflammatory drugs for 2 weeksafter polyp removal. Procedure Code(s): --- Professional --- 97507, Colonoscopy, flexible; with removal oftumor(s), polyp(s), or other lesion(s) by hot biopsy forceps Diagnosis Code(s): --- Professional --- D12.0, Benign neoplasm of cecum K62.5, Hemorrhage of anus and rectum Z86.010, Personal history of colonic polyps K57.30, Diverticulosis of large intestine without perforation or abscess without bleeding CPT copyright 2017 [employer]. All rights reserved. The codes documented in this report are preliminary and upon excelsior machine tender reviewmay be revised to meet current compliance requirements. Dr. Angel Luis Damon MD Angel Luis Damon M.D. 12/15/2017 9:43:22 AM This report has been electronically signed by the physician. Number of Addenda: 0 Note Initiated On: 12/15/2017 8:46 AM us Angel Luis Damon MD ENDOSCOPY PROCEDURES Final R esult * Screening Mammogram Bilateral W Miki (12/07/2017 12:52 PM CDT) Anatomical Region Laterality Modality Breast Bilateral Mammography Narrative 12/09/2017 10:07 AM CDT Mammogram Technique: Bilateral Digital Breast Tomosynthesis, Bilateral C-view 2D Screening mammogram. Views obtained: bilateral craniocaudal and bilateral mediolateral oblique. Computer Aided Detection was performed. Mammogram Findings: The present examination has been compared to prior imaging studies performed at [facility] on 03/14/2013, 11/24/2014 and 02/29/2016. The breasts are almost entirely fatty. There is no suspicious abnormality in either breast. Impression: Annual screening mammography is recommended. OVERALL FINAL ASSESSMENT: BI-RADS CATEGORY 1: Negative. Procedure Note Krystyna Burns MD - 12/09/2017 Mammogram Technique: Bilateral Digital Breast Tomosynthesis, Bilateral C-view 2D Screening mammogram. Views obtained: bilateral craniocaudal and bilateral mediolateral oblique. Computer Aided Detection was performed. Mammogram Findings: The present examination has been compared to prior imaging studies performed at [facility] on 03/14/2013, 11/24/2014 and 02/29/2016. The breasts are almost entirely fatty. There is no suspicious abnormality in either breast. Impression: Annual screening mammography is recommended. OVERALL FINAL ASSESSMENT: BI-RADS CATEGORY 1: Negative. Valentino Martinez MD IMG MAMMO PROCEDURES Fi nal Result from Last 3 Months or Most Recently Relevant to Health Maintenance [facility] MEDICARE [facility] MDCR HMO REF MEDICARE [place] Advance Directives For more information, please contact: [phone] * Full Code (Latest Code Status on File) Date Activated Date Inactivated Comments 02/03/2024 2:56 PM 02/06/2024 4:27 PM Care Teams Chemical Process Equipment Operator Relationship Specialty Start Date End Date Valentino Martinez MD [address] [facility] [address] [facility] [address] [place] [address] PCP - General Family Medicine 11/07/21 Jessee Montoya MD PhD [facility] [address] Consulting Physician Medical Oncology 12/09/23 Hai Marley MD [address] [facility]COL[facility], [place] [address] Radiation Oncologist Radiation Oncology 03/02/24
--- OUTSIDE RECORDS SUMMARY | 2024-06-27 09:38 | XMS_ITS | Referral Summary ---
Author Organization [facility] [address] Address [address] [place] [address] Care Team Providers Care Commodity Loan Clerk Name Role Phone Valentino Martinez MD Primary Care Provider Jessee Montoya MD PhD Unavailable [phone] Hai Marley MD Unavailable Encounters Date Type Department Care Team Description 06/14/2024 2:00 PM BACTERIOLOGY TEACHER Lab [facility] [address] [place] [address] Malignant neoplasm of upper lobe of right lung (HCC) 06/14/2024 2:45 PM BACTERIOLOGY TEACHER Office Visit [facility] Physicians [facility] Oncology [address] [place] [address] [address] [place] [phone] Jessee Montoya MD PhD Malignant neoplasm of upper lobe of right lung (HCC) (Primary Dx) 05/20/2024 Orders Only [facility] Surgery [address] [facility] Floor 5 [place] [address] Sujata Phan NP Nerve pain (Primary Dx) 05/20/2024 Telephone [facility] Cardiothoracic Surgery [facility] Advanced Medicine 8th Floor [address] Room [address] [place] [phone] Anitha Chambers 05/17/2024 2:15 PM BACTERIOLOGY TEACHER Lab [facility] at [address] [address] Malignant neoplasm of upper lobe of right lung (HCC) 05/17/2024 2:45 PM BACTERIOLOGY TEACHER Office Visit [facility] Oncology [address] [place] [phone] Jessee Montoya MD PhD Malignant neoplasm of upper lobe of right lung (HCC) (Primary Dx) 05/05/2024 10:15 AM BACTERIOLOGY TEACHER Office Visit [facility] Surgery [address] [place] [phone] Bola Almanza MD Malignant neoplasm of lung, unspecified laterality, unspecified part of lung (HCC) (Primary Dx) 04/26/2024 10:00 AM BACTERIOLOGY TEACHER Lab [facility] at [address] [address] Malignant neoplasm of upper lobe of right lung (HCC) 04/26/2024 10:30 AM BACTERIOLOGY TEACHER Office Visit [facility] Oncology [address] [place] [phone] Jessee Montoya MD PhD Malignant neoplasm of upper lobe of right lung (HCC) (Primary Dx) 04/21/2024 Documentation [facility] [address] [facility] Floor 6 [place] [address] Melba Graham RMA Financial Assistance 04/19/2024 11:14 AM BACTERIOLOGY TEACHER - 04/19/2024 11:59 PM BACTERIOLOGY TEACHER Hospital Encounter [facility] [address] [place] [address] Malignant neoplasm of upper lobe of right lung (HCC) Discharge Disposition: Discharge to home or self care 03/29/2024 Orders Only [facility] Oncology [address] [place] [phone] Jessee Montoya MD PhD 03/29/2024 9:30 AM BACTERIOLOGY TEACHER Lab [facility] at [address] [address] Malignant neoplasm of upper lobe of right lung (HCC) 03/29/2024 10:15 AM BACTERIOLOGY TEACHER Office Visit [facility] Oncology [address] [facility] [address] [place] [address] Jessee Montoya MD PhD Malignant neoplasm of upper lobe of right lung (HCC) (Primary Dx); NSCLC with EGFR mutation (HCC) from Last 3 Months Allergies No known active allergies Medications venlafaxine [...] (01/21/2019): Added automatically from request for surgery [id number] Imbalance 12/28/2018 Assessment & Plan (12/28/2018 9:09 AM CDT): Discussed balance activities such as yoga. No evidence of inner ear pathology such as BPPV today. Ear itching 12/28/2018 Assessment & Plan (12/28/2018 9:10 AM CDT): 50/50 alcohol and vinegar mix as needed. Keep ears dry. Tinnitus, bilateral 12/07/2018 Arthritis 11/03/2018 Overview (11/03/2018): Added automatically from request for surgery [id number] Diverticulosis of colon 01/20/2018 Hiatal hernia 01/20/2018 Polyp of colon 01/20/2018 History of colon polyps 12/09/2017 Overview (12/09/2017): Added automatically from request for surgery [id number] Gastroesophageal reflux disease 12/09/2017 Overview (12/09/2017): Added automatically from request for surgery [id number] Chest pain 11/23/2017 Assessment & Plan (11/23/2017 [...] fracture of greater tuberosity of humerus 07/31/2014 Immunizations Immunization Administration Dates Next Due Influenza, Quadrivalent, Hig h Dose, Preservative Free, Intrr 03/01/2020 Influenza, Trivalent, High D ose, Split, Preservative Free, Intramuscular 03/06/2015 TD Preservative Free 08/29/2023 ZOSTER LIVE 02/19/2015 Social History Tobacco Use Types Packs/Day Years Used Date Smoking Tobacco: Never Smokeless Tobacco: Never Tobacco Cessation:Counseling Given: Not Answered Alcohol Use Standard Drinks/Week Comments Yes 0 (1 standard drink = 0.6 oz pur e alcohol) 1x/month with dinner [facility] Utilities Answer Date Recorded In the past 12 months has [employer], or water [employer] threatened to shut off services in your [...] week 02/04/2024 How often do you attend [facility] or congregational services? Never 02/04/2024 Do you belong to any clubs o r organizations such as mormon groups, unions, fraternal or athletic groups, or [...] any time in the past 12 m [facility], were you homeless or living in a fpc (including now)? No 02/04/2024 Personal Safety Answer Date Recorded Have you ever been in or are you currently in a harmful physical or emotional relationship or is someone making you feel afraid or unsafe? Denies 02/04/2024 Comments No Sex and Gender Information Value Date Recorded Sex Assigned at Not on file Legal Sex Female 3:46 AM BACTERIOLOGY TEACHER Gender Identity Female 04/16/2021 7:44 PM BACTERIOLOGY TEACHER Sexual Orientation Straight 11/22/2018 7: 26 PM CDT Last Filed Vital Signs Vital Sign Reading Time Taken Comments Blood Pressure 131/86 06/14/2024 2:28 PM BACTERIOLOGY TEACHER Pulse 88 06/14/2024 2:28 PM BACTERIOLOGY TEACHER Temperature 36.2 C (97.1 F) 06/14/2024 2:28 PM BACTERIOLOGY TEACHER Respiratory Rate 16 06/14/2024 2:28 PM BACTERIOLOGY TEACHER Oxygen Saturation 98% 06/14/2024 2:28 PM BACTERIOLOGY TEACHER Inhaled Oxygen Concentration - - Weight 73.9 kg (163 lb) 06/14/2024 2:28 PM BACTERIOLOGY TEACHER Height 157.5 cm (5' 2 ) 02/03/2024 8:00 PM CDT Body Mass Index 29.81 02/03/2024 8:00 PM CDT Plan of Treatment Not on file Medical Devices Implanted Type Area Instructor Weaving Device Identifier Shelf Expiration Date Model / Serial / Lot Synthes 201.364.97 2mm 14mm Self Tap Self Retain St[employer]rive Cortex T6 Screw Bone - [id number] Implanted:Qty: 2 on 10/27/2017 by Hortencia Monte DPM at [facility] Right: First Toe Synthes I 201.364.97 / / Synthes 201.366.97 2mm 16mm Self Tap Self Retain Stardrive Cortex T6 Screw Bone - [id number] Implanted:Qty: 1 on 10/27/2017 by Hortencia Monte DPM at [facility] Right: First Toe Synthes I 201.366.97 / / [employer] At2-C26-S Acutrak 2 2.5-2.8mm 26mm Headless Self Cut Cannulated Variable - [id number] Implanted:Qty: 1 on 11/09/2018 by Gustavo Lacy MD at [facility] [employer] AT2-C26-S / / [employer] At2-C26-S Acutrak 2 2.5-2.8mm 26mm Headless Self Cut Cannulated Variable - [id number] Implanted:Qty: 1 on 02/01/2019 by Gustavo Lacy MD at [facility] Right: Index Finger [employer] [id number] 01/26/2025 AT2-C26-S / / [id number] Procedures Procedure Name Priority Date/Time Associated Diagnosis Comments EGFR Routine 06/14/2024 2:19 PM BACTERIOLOGY TEACHER Malignant neoplasm of upper lobe of right lung (HCC) DIFFERENTIAL AUTO Routine 06/14/2024 2:1 9 PM BACTERIOLOGY TEACHER Malignant neoplasm of upper lobe of right lung (HCC) COMPREHENSIVE METABOLIC PANEL Routine 06/14/2024 2:19 PM BACTERIOLOGY TEACHER Malignant neoplasm of upper lobe of right lung (HCC) CBC WITH AUTO DIFFERENTIAL Routine 06/14/2024 2:19 PM BACTERIOLOGY TEACHER Malignant neoplasm of upper lobe of right lung (HCC) EGFR Routine 05/17/2024 2:07 PM BACTERIOLOGY TEACHER Malignant neoplasm of upper lobe of right lung (HCC) DIFFERENTIAL AUTO Routine 05/17/2024 2:0 7 PM BACTERIOLOGY TEACHER Malignant neoplasm of upper lobe of right lung (HCC) CBC WITH AUTO DIFFERENTIAL Routine 05/17/2024 2:07 PM BACTERIOLOGY TEACHER Malignant neoplasm of upper lobe of right lung (HCC) COMPREHENSIVE METABOLIC PANEL Routine 05/17/2024 2:07 PM BACTERIOLOGY TEACHER Malignant neoplasm of upper lobe of right lung (HCC) EGFR Routine 04/26/2024 10:07 AM BACTERIOLOGY TEACHER Malignant neoplasm of upper lobe of right lung (HCC) DIFFERENTIAL AUTO Routine 04/26/2024 10: 07 AM BACTERIOLOGY TEACHER Malignant neoplasm of upper lobe of right lung (HCC) CBC WITH AUTO DIFFERENTIAL Routine 04/26/2024 10:07 AM BACTERIOLOGY TEACHER Malignant neoplasm of upper lobe of right lung (HCC) COMPREHENSIVE METABOLIC PANEL Routine 04/26/2024 10:07 AM BACTERIOLOGY TEACHER Malignant neoplasm of upper lobe of right lung (HCC) CT CHEST ABDOMEN W CONTRAST Schedule Routine, Read Routine (OP Routine) 04/19/2024 11:26 AM BACTERIOLOGY TEACHER Malignant neoplasm of upper lobe of right lung (HCC) EGFR STAT 03/29/2024 9:52 AM BACTERIOLOGY TEACHER Malignant neoplasm of upper lobe of right lung (HCC) DIFFERENTIAL AUTO Routine 03/29/2024 9:5 2 AM BACTERIOLOGY TEACHER Malignant neoplasm of upper lobe of right lung (HCC) CBC WITH AUTO DIFFERENTIAL Routine 03/29/2024 9:52 AM BACTERIOLOGY TEACHER Malignant neoplasm of upper lobe of right lung (HCC) COMPREHENSIVE METABOLIC PANEL STAT 03/29/2024 9:52 AM BACTERIOLOGY TEACHER Malignant neoplasm of upper lobe of right lung (HCC) COLONOSCOPY 12/15/2017 8:46 AM CDT SCREENING MAMMOGRAM BILATERAL W MIKI Schedule Routine, Read Routine (OP Routine) 12/07/2017 12:52 PM CDT Encounter for screening mammogram for malignant neoplasm of breast from Last 3 Months or Most Recently Relevant to Health Maintenance Results * eGFR (06/14/2024 2:19 PM BACTERIOLOGY TEACHER) eGFR 69 >=60 mL/min/1. 73 m2 Comment: [...] was last reviewed 2021. Testing performed by: [address] [address] Blood 06/14/2024 2:19 PM BACTERIOLOGY TEACHER 06/14/2024 2:22 PM BACTERIOLOGY TEACHER us Jessee Montoya MD PhD LAB BLOOD ORDERABLES Final Result [facility] [address] [facility] Department [place] [address] * Differential, auto (06/14/2024 2:19 PM BACTERIOLOGY TEACHER) Neutrophil abs 2.6 1.5 - 6.5 K/cumm Comment:Testing performed by : [address] [address] Imm gran abs 0.0 0.0 - 0.1 K/cumm [facility] Comment:Testing performed by : [address] [address] Lymphocyte abs 1.2 0.8 - 3.3 K/cumm [facility]IO Comment:Testing performed by : [address] [address] Monocyte abs 0.5 0.2 - 0.8 K/cumm [facility]IO Comment:Testing performed by : [address] [address] Eosinophil abs 0.1 0.0 - 0.5 K/cumm [facility]IO Comment:Testing performed by : [address] [address] Basophil abs 0.0 0.0 - 0.1 K/cumm [facility] Comment:Testing performed by : [address] [address] Neutrophil pct 58.7 % [facility] Comment: Interpretive Data Percent cell count reference ranges are not reported, since discordance with absolute values may lead to misinterpretation of CBC data. Current Interpretive Data was last revised on 2017. Testing performed by: [address] [address] Imm gran pct 0.2 % [facility] Comment: Interpretive Data Percent cell count reference ranges are not reported, since discordance with absolute values may lead to misinterpretation of CBC data. Current Interpretive Data was last revised on 2017. Testing performed by: [address] [address] Lymphocyte pct 27.4 % [facility] Comment: Interpretive Data Percent cell count reference ranges are not reported, since discordance with absolute values may lead to misinterpretation of CBC data. Current Interpretive Data was last revised on 2017. Testing performed by: [address] [address] Monocyte pct 11.9 % [facility] Comment: Interpretive Data Percent cell count reference ranges are not reported, since discordance with absolute values may lead to misinterpretation of CBC data. Current Interpretive Data was last revised on 2017. Testing performed by: [address] [address] Eosinophil pct 1.1 % [facility] Comment: Interpretive Data Percent cell count reference ranges are not reported, since discordance with absolute values may lead to misinterpretation of CBC data. Current Interpretive Data was last revised on 2017. Testing performed by: [address] [address] Basophil pct 0.7 % [facility] Comment: Interpretive Data Percent cell count reference ranges are not reported, since discordance with absolute values may lead to misinterpretation of CBC data. Current Interpretive Data was last revised on 2017. Testing performed by: [address] [address] Blood 06/14/2024 2:19 PM BACTERIOLOGY TEACHER 06/14/2024 2:22 PM BACTERIOLOGY TEACHER us Jessee Montoya MD PhD LAB BLOOD ORDERABLES Final Result [facility] [address] [facility] Department [place] [address] * (ABNORMAL) CBC with auto differential (06/14/2024 2:19 PM BACTERIOLOGY TEACHER) WBC 4.5 3.8 - 9.9 K/cumm Comment:Testing performed by : [address], [address] Hgb 11.8(L) 11.9 - 15.5 g/dL [facility] Comment:Testing performed by : [address] [address] Hct 35.2(L) 35.6 - 45.5 % [facility] Comment:Testing performed by : [address] [address] Plt 229 150 - 400 K/cumm [facility]IO Comment:Testing performed by : [address] [address] MPV 8.5(L) 9.1 - 12.3 fL [facility] Comment:Testing performed by : [address] [address] RBC 3.89(L) 3.90 - 5.20 M/cumm [facility] Comment:Testing performed by : [address], [address] MCV 90.5 81.3 - 96.4 fL [facility] Comment:Testing performed by : [address], [address] MCH 30.3 27.1 - 33.3 pg [facility] Comment:Testing performed by : [address] [address] MCHC 33.5 32.3 - 35.7 g/dL [facility] Comment:Testing performed by : [address], [address] RDW CV 13.0 11.1 - 14.9 % [facility] Comment:Testing performed by : [address], [address] RDW SD 43.3 35.7 - 48.1 fL [facility] Comment:Testing performed by : [address] [address] NRBC abs 0.00 0.00 - 0.01 K/cumm [facility] Comment:Testing performed by : [address] [address] Blood 06/14/2024 2:19 PM BACTERIOLOGY TEACHER 06/14/2024 2:22 PM BACTERIOLOGY TEACHER us Jessee Montoya MD PhD LAB BLOOD ORDERABLES Final Result [facility] [address] [facility] Department [place] [address] * Comprehensive metabolic panel (06/14/2024 2:19 PM BACTERIOLOGY TEACHER) Sodium 140 135 - 145 mmol/L Comment:Testing performed by : [address] [address] Potassium, pl 3.9 3.3 - 4.9 mmol/L [facility] Comment:Testing performed by : [address] [address] Chloride 103 97 - 110 mmol/L ATNONIO Comment:Testing performed by : [address] [address] CO2 25 22 - 32 mmol/L [facility] Comment:Testing performed by : [address] [address] Anion gap 12 2 - 15 mmol/L [facility] Comment:Testing performed by : [address] [address] BUN 15 6 - 25 mg/dL [facility] Comment:Testing performed by : [address] [address] Creatinine 0.90 0.60 - 1.10 mg/dL [facility] Comment:Testing performed by : [address] [address] Glucose 105 70 - 199 mg/dL ANTONIO [...] was last revised 2022. Testing performed by: [address] [address] Calcium 9.5 8.5 - 10.3 mg/dL [facility] Comment:Testing performed by : [address] [address] Bilirubin, total <0.2 0.1 - 1.2 mg/dL [facility] Comment:Testing performed by : [address] [address] Protein, pl 6.8 6.5 - 8.5 g/dL [facility] Comment:Testing performed by : [address] [address] Albumin 4.0 3.5 - 5.0 g/dL [facility] Comment:Testing performed by : [address] [address] Alk phos 95 40 - 130 Units/L [facility] Comment:Testing performed by : [address] [address] ALT 15 7 - 45 Units/L [facility] Comment:Testing performed by : [address] [address] AST 16 10 - 45 Units/L [facility] Comment:Testing performed by : [address] [address] Blood 06/14/2024 2:19 PM BACTERIOLOGY TEACHER 06/14/2024 2:22 PM BACTERIOLOGY TEACHER us Jessee Montoya MD PhD LAB BLOOD ORDERABLES Final Result [facility] [address] [facility] Department [place] [address] * eGFR (05/17/2024 2:07 PM BACTERIOLOGY TEACHER) eGFR 79 >=60 mL/min/1. 73 m2 Comment: [...] was last reviewed 2021. Testing performed by: [address] [address] Blood 05/17/2024 2:07 PM BACTERIOLOGY TEACHER 05/17/2024 2:20 PM BACTERIOLOGY TEACHER us Jessee Montoya MD PhD LAB BLOOD ORDERABLES Final Result [facility] [address] [facility] Department of Laboratories [place], [place] [id number] * Differential, auto (05/17/2024 2:07 PM BACTERIOLOGY TEACHER) Neutrophil abs 2.5 1.5 - 6.5 K/cumm Comment:Testing performed by : [address] [address] Imm gran abs 0.0 0.0 - 0.1 K/cumm [facility]IO Comment:Testing performed by : [address] [address] Lymphocyte abs 1.3 0.8 - 3.3 K/cumm [facility]IO Comment:Testing performed by : [address] [address] Monocyte abs 0.5 0.2 - 0.8 K/cumm [facility] Comment:Testing performed by : [address] [address] Eosinophil abs 0.1 0.0 - 0.5 K/cumm [facility] Comment:Testing performed by : [address] [address] Basophil abs 0.0 0.0 - 0.1 K/cumm [facility] Comment:Testing performed by : [address] [address] Neutrophil pct 57.7 % [facility] Comment: Interpretive Data Percent cell count reference ranges are not reported, since discordance with absolute values may lead to misinterpretation of CBC data. Current Interpretive Data was last revised on 2017. Testing performed by: [address] [address] Imm gran pct 0.2 % [facility] Comment: Interpretive Data Percent cell count reference ranges are not reported, since discordance with absolute values may lead to misinterpretation of CBC data. Current Interpretive Data was last revised on 2017. Testing performed by: [address] [address] Lymphocyte pct 28.9 % [facility] Comment: Interpretive Data Percent cell count reference ranges are not reported, since discordance with absolute values may lead to misinterpretation of CBC data. Current Interpretive Data was last revised on 2017. Testing performed by: [address] [address] Monocyte pct 11.1 % [facility] Comment: Interpretive Data Percent cell count reference ranges are not reported, since discordance with absolute values may lead to misinterpretation of CBC data. Current Interpretive Data was last revised on 2017. Testing performed by: [address] [address] Eosinophil pct 1.6 % [facility] Comment: Interpretive Data Percent cell count reference ranges are not reported, since discordance with absolute values may lead to misinterpretation of CBC data. Current Interpretive Data was last revised on 2017. Testing performed by: [address] [address] Basophil pct 0.5 % [facility] Comment: Interpretive Data Percent cell count reference ranges are not reported, since discordance with absolute values may lead to misinterpretation of CBC data. Current Interpretive Data was last revised on 2017. Testing performed by: [address] [address] Blood 05/17/2024 2:07 PM BACTERIOLOGY TEACHER 05/17/2024 2:20 PM BACTERIOLOGY TEACHER us Jessee Montoya MD PhD LAB BLOOD ORDERABLES Final Result [facility] [address] [facility] Department [place] [address] * (ABNORMAL) CBC with auto differential (05/17/2024 2:07 PM BACTERIOLOGY TEACHER) WBC 4.3 3.8 - 9.9 K/cumm Comment:Testing performed by : [address] [address] Hgb 12.3 11.9 - 15.5 g/dL [facility] Comment:Testing performed by : [address] [address] Hct 36.6 35.6 - 45.5 % [facility] Comment:Testing performed by : [address] [address] Plt 262 150 - 400 K/cumm [facility] Comment:Testing performed by : [address] [address] MPV 8.8(L) 9.1 - 12.3 fL [facility] Comment:Testing performed by : [address] [address] RBC 3.95 3.90 - 5.20 M/cumm [facility] Comment:Testing performed by : [address] [address] MCV 92.7 81.3 - 96.4 fL [facility] CORRALES Comment:Testing performed by : [address] [address] MCH 31.1 27.1 - 33.3 pg [facility] CORRALES Comment:Testing performed by : [address] [address] MCHC 33.6 32.3 - 35.7 g/dL [facility] CORRALES Comment:Testing performed by : [address] [address] RDW CV 13.0 11.1 - 14.9 % [facility] CORRALES Comment:Testing performed by : [address] [address] RDW SD 44.3 35.7 - 48.1 fL [facility] CORRALES Comment:Testing performed by : [address] [address] NRBC abs 0.00 0.00 - 0.01 K/cumm [facility] CORRALES Comment:Testing performed by : [address] [address] Blood 05/17/2024 2:07 PM BACTERIOLOGY TEACHER 05/17/2024 2:20 PM BACTERIOLOGY TEACHER us Jessee Montoya MD PhD LAB BLOOD ORDERABLES Final Result [facility] [address] Department [place] [address] * (ABNORMAL) Comprehensive metabolic panel (05/17/2024 2:07 PM BACTERIOLOGY TEACHER) Sodium 140 135 - 145 mmol/L Comment:Testing performed by : [address] [address] Potassium, pl 4.2 3.3 - 4.9 mmol/L [facility] CORRALES Comment:Testing performed by : [address] [address] Chloride 102 97 - 110 mmol/L [facility] CORRALES Comment:Testing performed by : [address] [address] CO2 28 22 - 32 mmol/L [facility] CORRALES Comment:Testing performed by : [address] [address] Anion gap 10 2 - 15 mmol/L [facility] CORRALES Comment:Testing performed by : [address] [address] BUN 13 6 - 25 mg/dL [facility] CORRALES Comment:Testing performed by : [address] [address] Creatinine 0.80 0.60 - 1.10 mg/dL [facility] Comment:Testing performed by : [address] [address] Glucose 122 70 - 199 mg/dL [facility] [...] was last revised 2022. Testing performed by: [address] [address] Calcium 9.5 8.5 - 10.3 mg/dL [facility] Comment:Testing performed by : [address] [address] Bilirubin, total 0.2 0.1 - 1.2 mg/dL [facility] Comment:Testing performed by : [address] [address] Protein, pl 7.3 6.5 - 8.5 g/dL [facility] Comment:Testing performed by : [address] [address] Albumin 4.0 3.5 - 5.0 g/dL [facility] Comment:Testing performed by : [address] [address] Alk phos 114 40 - 130 Units/L [facility] Comment:Testing performed by : [address] [address] ALT 51(H) 7 - 45 Units/L [facility] Comment:Testing performed by : [address] [address] AST 23 10 - 45 Units/L [facility] Comment:Testing performed by : [address] [address] Blood 05/17/2024 2:07 PM BACTERIOLOGY TEACHER 05/17/2024 2:20 PM BACTERIOLOGY TEACHER us Jessee Montoya MD PhD LAB BLOOD ORDERABLES Final Result Performing Organization Address City/[facility] Co de Phone Number [facility] [address] [place] [address] * eGFR (04/26/2024 10:07 AM BACTERIOLOGY TEACHER) eGFR 79 >=60 mL/min/1. 73 m2 Comment: [...] was last reviewed 2021. Testing performed by: [facility], [address] [place] [address]., [address] Blood 04/26/2024 10:0 7 AM BACTERIOLOGY TEACHER 04/26/2024 10:13 AM BACTERIOLOGY TEACHER us Jessee Montoya MD PhD LAB BLOOD ORDERABLES Final Result Performing Organization Address City/[facility]/ZIP Co de Phone Number [facility] [address] [place] [address] * Differential, auto (04/26/2024 10:07 AM BACTERIOLOGY TEACHER) Neutrophil abs 4.0 1.5 - 6.5 K/cumm Comment:Testing performed by : [facility], [address] [place] [address], [place]., [address] Imm gran abs 0.0 0.0 - 0.1 K/cumm [facility] Comment:Testing performed by : [address], [place]., [address] Lymphocyte abs 1.4 0.8 - 3.3 K/cumm [facility] Comment:Testing performed by : [address] [address] Monocyte abs 0.5 0.2 - 0.8 K/cumm [facility] Comment:Testing performed by : [address] [address] Eosinophil abs 0.0 0.0 - 0.5 K/cumm [facility] Comment:Testing performed by : [address], [place]., [address] Basophil abs 0.1 0.0 - 0.1 K/cumm [facility] Comment:Testing performed by : [address] [address] Neutrophil pct 66.0 % [facility] Comment: Interpretive Data Percent cell count reference ranges are not reported, since discordance with absolute values may lead to misinterpretation of CBC data. Current Interpretive Data was last revised on 2017. Testing performed by: [address] [address] Imm gran pct 0.3 % [facility] Comment: Interpretive Data Percent cell count reference ranges are not reported, since discordance with absolute values may lead to misinterpretation of CBC data. Current Interpretive Data was last revised on 2017. Testing performed by: [address] [address] Lymphocyte pct 24.0 % [facility] Comment: Interpretive Data Percent cell count reference ranges are not reported, since discordance with absolute values may lead to misinterpretation of CBC data. Current Interpretive Data was last revised on 2017. Testing performed by: [address] [address] Monocyte pct 8.0 % [facility] Comment: Interpretive Data Percent cell count reference ranges are not reported, since discordance with absolute values may lead to misinterpretation of CBC data. Current Interpretive Data was last revised on 2017. Testing performed by: [address] [address] Eosinophil pct 0.7 % [facility] Comment: Interpretive Data Percent cell count reference ranges are not reported, since discordance with absolute values may lead to misinterpretation of CBC data. Current Interpretive Data was last revised on 2017. Testing performed by: [address] [address] Basophil pct 1.0 % [facility] Comment: Interpretive Data Percent cell count reference ranges are not reported, since discordance with absolute values may lead to misinterpretation of CBC data. Current Interpretive Data was last revised on 2017. Testing performed by: [address] [address] Blood 04/26/2024 10:0 7 AM BACTERIOLOGY TEACHER 04/26/2024 10:13 AM BACTERIOLOGY TEACHER us Jessee Montoya MD PhD LAB BLOOD ORDERABLES Final Result [facility] [address] [facility] Department [place] [address] * (ABNORMAL) CBC with auto differential (04/26/2024 10:07 AM BACTERIOLOGY TEACHER) Pathologist [facility] WBC 6.0 3.8 - 9.9 K/cumm Comment:Testing performed by : [address] [address] Hgb 13.3 11.9 - 15.5 g/dL [facility] Comment:Testing performed by : [address] [address] Hct 39.7 35.6 - 45.5 % [facility] Comment:Testing performed by : [address] [address] Plt 327 150 - 400 K/cumm [facility] Comment:Testing performed by : [address] [address] MPV 8.2(L) 9.1 - 12.3 fL [facility] Comment:Testing performed by : [address] [address] RBC 4.31 3.90 - 5.20 M/cumm [facility] Comment:Testing performed by : [address] [address] MCV 92.1 81.3 - 96.4 fL [facility] Comment:Testing performed by : [address] [address] MCH 30.9 27.1 - 33.3 pg [facility] Comment:Testing performed by : [address] [address] MCHC 33.5 32.3 - 35.7 g/dL [facility] Comment:Testing performed by : [address] [address] RDW CV 12.9 11.1 - 14.9 % [facility] Comment:Testing performed by : [address] [address] RDW SD 43.6 35.7 - 48.1 fL [facility] Comment:Testing performed by : [address] [address] NRBC abs 0.00 0.00 - 0.01 K/cumm [facility] Comment:Testing performed by : [address] [address] Blood 04/26/2024 10:0 7 AM BACTERIOLOGY TEACHER 04/26/2024 10:13 AM BACTERIOLOGY TEACHER us Jessee Montoya MD PhD LAB BLOOD ORDERABLES Final Result [facility] [address] [facility] Department [place] [address] * Comprehensive metabolic panel (04/26/2024 10:07 AM BACTERIOLOGY TEACHER) Sodium 140 135 - 145 mmol/L Comment:Testing performed by : [address] [address] Potassium, pl 4.5 3.3 - 4.9 mmol/L [facility] Comment:Testing performed by : [address] [address] Chloride 103 97 - 110 mmol/L [facility] Comment:Testing performed by : [address], [place]., [address] CO2 27 22 - 32 mmol/L [facility] Comment:Testing performed by : [address] [address] Anion gap 10 2 - 15 mmol/L [facility] Comment:Testing performed by : [address], [place]., [address] BUN 19 6 - 25 mg/dL [facility] Comment:Testing performed by : [address] [address] Creatinine 0.80 0.60 - 1.10 mg/dL [facility] Comment:Testing performed by : [address] [address] Glucose 96 70 - 199 mg/dL [facility] Comment: Interpretive Data Fasting glucose >/= 126 [...] was last revised 2022. Testing performed by: [address] [address] Calcium 9.5 8.5 - 10.3 mg/dL [facility] Comment:Testing performed by : [address] [address] Bilirubin, total 0.2 0.1 - 1.2 mg/dL [facility] Comment:Testing performed by : [address] [address] Protein, pl 7.4 6.5 - 8.5 g/dL [facility] Comment:Testing performed by : [address] [address] Albumin 4.2 3.5 - 5.0 g/dL [facility] Comment:Testing performed by : [address] [address] Alk phos 122 40 - 130 Units/L [facility] Comment:Testing performed by : [address] [address] ALT 12 7 - 45 Units/L [facility] Comment:Testing performed by : [address] [address] AST 15 10 - 45 Units/L [facility] Comment:Testing performed by : [address] [address] Blood 04/26/2024 10:0 7 AM BACTERIOLOGY TEACHER 04/26/2024 10:13 AM BACTERIOLOGY TEACHER us Jessee Montoya MD PhD LAB BLOOD ORDERABLES Final Result [facility] [address] [facility] Department [place] [address] * CT Chest Abdomen W Contrast (04/19/2024 11:26 AM BACTERIOLOGY TEACHER) Anatomical Region Laterality Modality Body N/A Computed Tomogra phy 04/24/2024 2:17 PM BACTERIOLOGY TEACHER Narrative 04/24/2024 2:41 PM BACTERIOLOGY TEACHER EXAM DESCRIPTION: CT CHEST ABDOMEN W CONTRAST [...] Ronal Brown M.D. LL: DAVID Report ID: [id number] Reading Location: [id number] Procedure Note Ronal Brown MD - 04/24/2024 [...] Ronal Brown M.D. LL: DAVID Report ID: [id number] Reading Location: [id number] us Jessee Montoya MD PhD IMG CT PROCEDURES Fin al Result * eGFR (03/29/2024 9:52 AM BACTERIOLOGY TEACHER) eGFR >90 >=60 mL/min/1. 73 m2 Comment: [...] was last reviewed 2021. Testing performed by: [address] [address] Blood 03/29/2024 9:52 AM BACTERIOLOGY TEACHER 03/29/2024 9:58 AM BACTERIOLOGY TEACHER us Jessee Montoya MD PhD LAB BLOOD ORDERABLES Final Result [facility] [address] [facility] Department [place] [address] * Differential, auto (03/29/2024 9:52 AM BACTERIOLOGY TEACHER) Pathologist [facility] Neutrophil abs 2.8 1.5 - 6.5 K/cumm Comment:Testing performed by : [address] [address] Imm gran abs 0.0 0.0 - 0.1 K/cumm [facility] Comment:Testing performed by : [address] [address] Lymphocyte abs 1.7 0.8 - 3.3 K/cumm [facility] Comment:Testing performed by : [address] [address] Monocyte abs 0.5 0.2 - 0.8 K/cumm [facility] Comment:Testing performed by : [address], [place]., [address] Eosinophil abs 0.1 0.0 - 0.5 K/cumm [facility] Comment:Testing performed by : [address], [place]., [address] Basophil abs 0.0 0.0 - 0.1 K/cumm [facility] Comment:Testing performed by : [address] [address] Neutrophil pct 54.6 % [facility] Comment: Interpretive Data Percent cell count reference ranges are not reported, since discordance with absolute values may lead to misinterpretation of CBC data. Current Interpretive Data was last revised on 2017. Testing performed by: [address] [address] Imm gran pct 0.4 % [facility] Comment: Interpretive Data Percent cell count reference ranges are not reported, since discordance with absolute values may lead to misinterpretation of CBC data. Current Interpretive Data was last revised on 2017. Testing performed by: [address] [address] Lymphocyte pct 32.8 % [facility] Comment: Interpretive Data Percent cell count reference ranges are not reported, since discordance with absolute values may lead to misinterpretation of CBC data. Current Interpretive Data was last revised on 2017. Testing performed by: [address] [address] Monocyte pct 9.1 % [facility] Comment: Interpretive Data Percent cell count reference ranges are not reported, since discordance with absolute values may lead to misinterpretation of CBC data. Current Interpretive Data was last revised on 2017. Testing performed by: [address] [address] Eosinophil pct 2.5 % [facility] Comment: Interpretive Data Percent cell count reference ranges are not reported, since discordance with absolute values may lead to misinterpretation of CBC data. Current Interpretive Data was last revised on 2017. Testing performed by: [address] [address] Basophil pct 0.6 % [facility] Comment: Interpretive Data Percent cell count reference ranges are not reported, since discordance with absolute values may lead to misinterpretation of CBC data. Current Interpretive Data was last revised on 2017. Testing performed by: [address] [address] Blood 03/29/2024 9:52 AM BACTERIOLOGY TEACHER 03/29/2024 9:58 AM BACTERIOLOGY TEACHER us Jessee Montoya MD PhD LAB BLOOD ORDERABLES Final Result [facility] Department [place] [address] * (ABNORMAL) CBC with auto differential (03/29/2024 9:52 AM BACTERIOLOGY TEACHER) WBC 5.2 3.8 - 9.9 K/cumm Comment:Testing performed by : [address] [address] Hgb 12.6 11.9 - 15.5 g/dL [facility] Comment:Testing performed by : [address] [address] Hct 38.0 35.6 - 45.5 % [facility] Comment:Testing performed by : [address] [address] Plt 311 150 - 400 K/cumm [facility] Comment:Testing performed by : [address] [address] MPV 8.3(L) 9.1 - 12.3 fL [facility] Comment:Testing performed by : [address] [address] RBC 4.11 3.90 - 5.20 M/cumm [facility] Comment:Testing performed by : [address] [address] MCV 92.5 81.3 - 96.4 fL [facility] Comment:Testing performed by : [address] [address] MCH 30.7 27.1 - 33.3 pg [facility] Comment:Testing performed by : [address], [place]., [address] MCHC 33.2 32.3 - 35.7 g/dL [facility] Comment:Testing performed by : [address], [place]., [address] RDW CV 13.0 11.1 - 14.9 % [facility] Comment:Testing performed by : [address] [address] RDW SD 44.1 35.7 - 48.1 fL [facility] Comment:Testing performed by : [address] [address] NRBC abs 0.00 0.00 - 0.01 K/cumm [facility] Comment:Testing performed by : [address] [address] Blood 03/29/2024 9:52 AM BACTERIOLOGY TEACHER 03/29/2024 9:58 AM BACTERIOLOGY TEACHER us Jessee Montoya MD PhD LAB BLOOD ORDERABLES Final Result [facility] [address] [facility] Department [place] [address] * Comprehensive metabolic panel (03/29/2024 9:52 AM BACTERIOLOGY TEACHER) Sodium 142 135 - 145 mmol/L Comment:Testing performed by : [address] [address] Potassium, pl 4.5 3.3 - 4.9 mmol/L [facility] Comment:Testing performed by : [address] [address] Chloride 105 97 - 110 mmol/L [facility] Comment:Testing performed by : [address] [address] CO2 28 22 - 32 mmol/L [facility] Comment:Testing performed by : [address] [address] Anion gap 9 2 - 15 mmol/L [facility] Comment:Testing performed by : [address], [place]., [address] BUN 15 6 - 25 mg/dL [facility] Comment:Testing performed by : [address], [place]., [address] Creatinine 0.70 0.60 - 1.10 mg/dL [facility] Comment:Testing performed by : [address], [place]., [address] Glucose 105 70 - 199 mg/dL [facility] [...] was last revised 2022. Testing performed by: [address] [address] Calcium 9.4 8.5 - 10.3 mg/dL [facility] Comment:Testing performed by : [address] [address] Bilirubin, total 0.2 0.1 - 1.2 mg/dL [facility] Comment:Testing performed by : [address] [address] Protein, pl 7.3 6.5 - 8.5 g/dL [facility] Comment:Testing performed by : [address] [address] Albumin 4.2 3.5 - 5.0 g/dL [facility] Comment:Testing performed by : [address] [address] Alk phos 125 40 - 130 Units/L [facility] Comment:Testing performed by : [facility], [address] [place] [address]., [address] ALT 11 7 - 45 Units/L [facility] Comment:Testing performed by : [address] [address] AST 15 10 - 45 Units/L [facility] Comment:Testing performed by : [address] [address] Blood 03/29/2024 9:52 AM BACTERIOLOGY TEACHER 03/29/2024 9:58 AM BACTERIOLOGY TEACHER us Jessee Montoya MD PhD LAB BLOOD ORDERABLES Final Result [facility] [address] [facility] Department [place] [address] * COLONOSCOPY (12/15/2017 8:46 AM CDT) Anatomical Region Laterality Modality Other Narrative Procedure Note Angel Luis Damon MD - 12/15/2017 8:46 AM CDT [facility] Endoscopy Lab Patient Name: Jillian Echeverria Procedure Date: 12/15/2017 8:46 AM Date of : 1955 Admit Type: Outpatient Age: 62 Gender: Female Note Status: Finalized Attending MD: Angel Luis Damon M.D. Procedure Date: 12/15/2017 Procedure: Colonoscopy Indications: Rectal bleeding, Personal history of colonicpolyps Providers: Angel Luis Damon M.D., Medhat Chang (Anesthesia Staff), Ac Payton RN Referring MD: Valentino Martinez MD [...] by the physician, the nurse and the service trainer in the endoscopy suite. Mental Status Examination: [...] polyp removal. Procedure Code(s): --- Professional --- 46948, Colonoscopy, flexible; with removal oftumor(s), polyp(s), or other lesion(s) by hot biopsy forceps Diagnosis Code(s): --- Professional --- D12.0, Benign neoplasm of cecum K62.5, Hemorrhage of anus and rectum Z86.010, Personal history of colonic polyps K57.30, Diverticulosis of large intestine without perforation or abscess without bleeding CPT copyright 2017 [employer] [place] [employer]. All rights reserved. The codes documented in this report are preliminary and upon hcc coders reviewmay be revised to meet current compliance [...] compared to prior imaging studies performed at [facility] on 03/14/2013, 11/24/2014 and 02/29/2016. The breasts [...] compared to prior imaging studies performed at [facility] on 03/14/2013, 11/24/2014 and 02/29/2016. The breasts are almost entirely fatty. There is no suspicious abnormality in either breast. Impression: Annual screening mammography is recommended. OVERALL FINAL ASSESSMENT: BI-RADS CATEGORY 1: Negative. Valentino Martinez MD IMG MAMMO PROCEDURES Fi nal Result from Last 3 Months or Most Recently Relevant to Health Maintenance Insurance [facility] MDCR HMO REF [facility] MED[facility]ARE Address: [address] [place] [phone] MEDICARE SOLUTIONS Member Subscriber Plan / Payer (Ef fective 2023-Present) Name:Jillian Echveerria Relation to Subscriber:Self Name:Jillian Echeverria Payer ID:[id number] (NAIC) Type:UHC MEDICARE Address: [place] [id number] [place] [id number] [address] REF [facility] MED[facility] Address: [address] [address] [place] [id number] MEDICARE SOLUTIONS [facility] MEDICARE Address: [address] [address] [place] [address] Advance Directives For more information, please contact: [phone] * Full Code (Latest Code Status on File) Date Activated Date Inactivated Comments 02/03/2024 2:56 PM 02/06/2024 4:27 PM Care Teams Commodity Loan Clerk Relationship Specialty Start Date End Date Valentino Martinez MD [address] [facility] [address] [place] [address] [place] [address] PCP - General Family Medicine 11/07/21 Jessee Montoya MD PhD [address] [place] [address] Consulting Physician Medical Oncology 12/09/23 Hai Marley MD [address] [facility] [place] [address] Radiation Oncologist Radiation Oncology 03/02/24
--- OUTSIDE RECORDS SUMMARY | 2024-06-27 09:38 | XMS_ITS | Referral Summary ---
Author Organization [facility] Address [address] [facility] [place] [address] Care Team Providers Care Robotics Application Engineer Name Role Phone Rm Ansari MD Primary Care Provider [phone] Valentino Martinez MD Unavailable [phone] Source Comments [facility],non-owned Affiliates and Associated Physician Practices is amultiple site organization consisting of ambulatory clinics and hospital sitesin [place], [place], [place] and [place]. This disclosure is being madepursuant to the Care Everywhere program and may not contain all information available regarding this patient. Last updated 18.[facility] Allergies No known active allergies Medications * [...] Mass Index 34.53 02/14/2020 8:16 AM CDT Functional Status Functional Status Response Date of Assess ment Is person deaf or have serious hearing difficult y? No 02/14/2020 Is person blind or have serious difficulty seein g? No 02/14/2020 Does person have serious dif ficulty walking/climbing stairs? No 02/14/2020 Does person have difficulty dressing/bathing? No 02/14/2020 Does person have difficulty doing errands alone? No 02/14/2020 Cognitive Status Response Date of Assessm ent Does person have difficulty concentrating/remembering/making decisions? No 02/14/2020 Plan of Treatment Not on file Medical Devices Implanted Type Area Road Commissioner Device Identifier Shelf Expiration Date Model / Serial / Lot Graft Bone Tenfuse Pip 10d Algrf 18x2.7 Implanted:Qty: 1 on 02/14/2020 by Hortencia Monte MD at [facility] Right: Foot [employer] 06/09/2021 [id number] / / [id number] Description:Ref [id number] 2.0 X 14mm Screw Implanted:Qty: 1 on 02/14/2020 by Hortencia Monte MD at [facility] Right: Foot [id number] / / 2.4 X 12mm Screw Implanted:Qty: 1 on 02/14/2020 by Hortencia Monte MD at [facility] Right: Foot [id number] / / Explanted Type Area Road Commissioner Device Identifier Shelf Expiration Date Model / Serial / Lot Wire K 1.1mm 150mm Troc Blnt Fx Explanted:Qty: 1 on 02/14/2020 by Hortencia Monte MD at [facility] Right: Foot [employer] [id number] / / 2.0 X 10mm Screw Explanted:Qty: 1 on 02/14/2020 at [facility] Right: Foot [id number] / / [id number] Care Teams Robotics Application Engineer Relationship Specialty Start Date End Date Rm Ansari MD PCP - General 02/27/20 Valentino Martinez MD [address] [place] [address] Family Medicine 02/27/20
== END 2024-06-27 08:47 | disposition home or self-care (01) ==
LOC: ANHIMG 08:51
PROVIDERS: PCP Family Medicine; Visit Provider Family Medicine
DX: Z12.31 Encounter for screening mammogram for malignant neoplasm of breast (principal); M85.89 Other specified disorders of bone density and structure, multiple sites; Z78.0 Asymptomatic menopausal state
CPT/HCPCS: 77063; 77067; 77080

== ENCOUNTER 2024-08-31 00:02 | Day surgery (SDC) | payer MEDICARE, SELFPAY ==
[2024-08-26 15:55] VITALS: BMI 29.0
--- OUTSIDE RECORDS SUMMARY | 2024-08-31 00:05 | XMS_ITS | Referral Summary ---
Author Organization [facility] [place] [address] Address [address] [place] [address] Care Team Providers Care Psychopaedic Nurse Name Role Phone Valentino Wong MD Primary Care Provider Jessee Montoya MD PhD Unavailable Hai Marley MD Unavailable [phone] Encounters Date Type Department Care Team Description 08/09/2024 2:45 PM CDT Lab [address] [address] Malignant neoplasm of upper lobe of right lung (HCC) 08/09/2024 3:15 PM CDT Office Visit [facility] [address] [facility] [address] [place] [phone] Jessee Montoya MD PhD Malignant neoplasm of upper lobe of right lung (HCC) (Primary Dx) 08/02/2024 10:59 AM CDT - 08/02/2024 11:59 PM CDT Hospital Encounter [facility] [address] [place] [address] Malignant neoplasm of upper lobe of right lung (HCC) Discharge Disposition: Discharge to home or self care 06/14/2024 2:00 PM GLOBAL MARKETING MANAGER Lab [address] [address] Malignant neoplasm of upper lobe of right lung (HCC) 06/14/2024 2:45 PM GLOBAL MARKETING MANAGER Office Visit [facility] [address] [facility] [address] [place] [phone] Jessee Montoya MD PhD Malignant neoplasm of upper lobe of right lung (HCC) (Primary Dx) from Last 3 Months Allergies No known active allergies Medications venlafaxine XR (EFFEXOR-XR) 150 mg 24 hr capsule take 1 capsule by oral route every day 0 0 6 Active gabapentin (NEURONTIN) 300 mg capsuleIndicati ons:Nerve pain Take 1 capsule (300 mg total) by mouth 2 (two) times a day AND 2 capsules (600 mg total) nightly. 120 capsule 5 Active lidocaine (LMX) 4 % cream Apply topically 3 (three) times a day as needed for pain 60 g 1 5 Active osimertinib (Tagrisso) 80 mg tablet TAKE ONE TABLET BY MOUTH ONCE DAILY 30 tablet 3 5 Active osimertinib (TAGRISSO) 80 mg tabletIndicatio ns:NSCLC with EGFR mutation (HCC) Take 1 tablet (80 mg total) by mouth daily 30 tablet 3 4 08/10/19 25 Active Problems Patient Care Coordination No te Formatting of this note migh t be different from the original. Referring provider: Dr. Jessee Montoya Ms. Jillian Jones is a 68-year-old with lung cancer. She [...] (01/21/2019): Added automatically from request for surgery [id number] Imbalance 12/28/2018 Assessment & Plan (12/28/2018 9:09 AM CDT): Discussed balance activities such as yoga. No evidence of inner ear pathology such as BPPV today. Ear itching 12/28/2018 Assessment & Plan (12/28/2018 9:10 AM CDT): 50/50 alcohol and vinegar mix as needed. Keep ears dry. Tinnitus, bilateral 12/07/2018 Arthritis 11/03/2018 Overview (11/03/2018): Added automatically from request for surgery [id number] Diverticulosis of colon 01/20/2018 Hiatal hernia 01/20/2018 Polyp of colon 01/20/2018 History of colon polyps 12/09/2017 Overview (12/09/2017): Added automatically from request for surgery [id number] Gastroesophageal reflux disease 12/09/2017 Overview (12/09/2017): Added automatically from request for surgery [id number] Chest pain 11/23/2017 Assessment & Plan (11/23/2017 [...] oz pur e alcohol) 1x/month with dinner [facility] PO-MOities Answer Date Recorded In the past 12 months has [employer], gas, oil, or water [employer] threatened to shut off services in your [...] week 02/04/2024 How often do you attend [facility] or protestant services? Never 02/04/2024 Do you belong to any clubs o r organizations such as christian groups, unions, fraternal or athletic groups, or [...] any time in the past 12 m [facility], were you homeless or living in a prison (including now)? No 02/04/2024 Personal Safety Answer Date Recorded Have you ever been in or are you currently in a harmful physical or emotional relationship or is someone making you feel afraid or unsafe? Denies 02/04/2024 Comments No Sex and Gender Information Value Date Recorded Sex Assigned at Not on file Legal Sex Female 3:46 AM GLOBAL MARKETING MANAGER Gender Identity Female 04/16/2021 7:44 PM GLOBAL MARKETING MANAGER Sexual Orientation Straight 11/22/2018 7: 26 PM CDT Last Filed Vital Signs Vital Sign Reading Time Taken Comments Blood Pressure 126/80 08/09/2024 3:29 PM CDT Pulse 84 08/09/2024 3:29 PM CDT Temperature 36.5 C (97.7 F) 08/09/2024 3:29 PM CDT Respiratory Rate 16 08/09/2024 3:29 PM CDT Oxygen Saturation 99% 08/09/2024 3:29 PM CDT Inhaled Oxygen Concentration - - Weight 71.7 kg (158 lb) 08/09/2024 3:29 PM CDT Height 157.5 cm (5' 2 ) 02/03/2024 8:00 PM CDT Body Mass Index 28.9 02/03/2024 8:00 PM CDT Plan of Treatment Not on file Medical Devices Implanted Type Area Predatory Animal Hunter Device Identifier Shelf Expiration Date Model / Serial / Lot Synthes 201.364.97 2mm 14mm Self Tap Self Retain Stardrive Cortex T6 Screw Bone - [id number] Implanted:Qty: 2 on 10/27/2017 by Hortencia Monte DPM at [facility] Right: First Toe Synthes I [id number] / / Synthes 201.366.97 2mm 16mm Self Tap Self Retain Stardrive Cortex T6 Screw Bone - [id number] Implanted:Qty: 1 on 10/27/2017 by Hortencia Monte DPM at [facility] Right: First Toe Synthes I 201.366.97 / / [employer] At2-C26-S Acutrak 2 2.5-2.8mm 26mm Headless Self Cut Cannulated Variable - [id number] Implanted:Qty: 1 on 11/09/2018 by Gustavo Lacy MD at [facility] [employer] AT2-C26-S / / [employer] At2-C26-S Acutrak 2 2.5-2.8mm 26mm Headless Self Cut Cannulated Variable - [id number] Implanted:Qty: 1 on 02/01/2019 by Gustavo Lacy MD at [facility] Right: Index Finger [employer] [id number] 01/26/2025 AT2-C26-S / / [id number] Procedures Procedure Name Priority Date/Time Associated Diagnosis Comments EGFR Routine 08/09/2024 2:38 PM CDT Malignant neoplasm of upper lobe of right lung (HCC) DIFFERENTIAL AUTO Routine 08/09/2024 2:3 8 PM CDT Malignant neoplasm of upper lobe of right lung (HCC) COMPREHENSIVE METABOLIC PANEL Routine 08/09/2024 2:38 PM CDT Malignant neoplasm of upper lobe of right lung (HCC) CBC WITH AUTO DIFFERENTIAL Routine 08/09/2024 2:38 PM CDT Malignant neoplasm of upper lobe of right lung (HCC) CT CHEST ABDOMEN W CONTRAST Schedule Routine, Read Routine (OP Routine) 08/02/2024 11:34 AM CDT Malignant neoplasm of upper lobe of right lung (HCC) POCT CREATININE FOR CONTRAST EVALUATION Routine 08/02/2024 11:17 AM CDT EGFR Routine 06/14/2024 2:19 PM GLOBAL MARKETING MANAGER Malignant neoplasm of upper lobe of right lung (HCC) DIFFERENTIAL AUTO Routine 06/14/2024 2:1 9 PM GLOBAL MARKETING MANAGER Malignant neoplasm of upper lobe of right lung (HCC) COMPREHENSIVE METABOLIC PANEL Routine 06/14/2024 2:19 PM GLOBAL MARKETING MANAGER Malignant neoplasm of upper lobe of right lung (HCC) CBC WITH AUTO DIFFERENTIAL Routine 06/14/2024 2:19 PM GLOBAL MARKETING MANAGER Malignant neoplasm of upper lobe of right lung (HCC) COLONOSCOPY 12/15/2017 8:46 AM CDT SCREENING MAMMOGRAM BILATERAL W ISRA Schedule Routine, Read Routine (OP Routine) 12/07/2017 12:52 PM CDT Encounter for screening mammogram for malignant neoplasm of breast from Last 3 Months or Most Recently Relevant to Health Maintenance Results * eGFR (08/09/2024 2:38 PM CDT) eGFR 61 >=60 mL/min/1. 73 m2 Comment: Interpretive Data [...] was last reviewed 2021. Testing performed by: [address] [address] Blood 08/09/2024 2:38 PM CDT 08/09/2024 2:47 PM CDT us Jessee Montoya MD PhD LAB BLOOD ORDERABLES Final Result [facility] [address] [facility] [place] [address] * Differential, auto (08/09/2024 2:38 PM CDT) Neutrophil abs 2.48 1.50 - 6.50 K/cumm Comment:Testing performed by : [address] [address] Imm gran abs 0.01 0.00 - 0.10 K/cumm [facility]AL[facility] Comment:Testing performed by : [address] [address] Lymphocyte abs 1.70 0.80 - 3.30 K/cumm [facility] Comment:Testing performed by : [address] [address] Monocyte abs 0.57 0.20 - 0.80 K/cumm [facility] Comment:Testing performed by : [address], [place]., [address] Eosinophil abs 0.04 0.00 - 0.50 K/cumm [facility] Comment:Testing performed by : [address], [place]., [address] Basophil abs 0.03 0.00 - 0.10 K/cumm [facility] Comment:Testing performed by : [address] [address] Neutrophil pct 51.4 % [facility] Comment: Interpretive Data Percent cell count reference ranges are not reported, since discordance with absolute values may lead to misinterpretation of CBC data. Current Interpretive Data was last revised on 2017. Testing performed by: [address] [address] Imm gran pct 0.2 % [facility] Comment: Interpretive Data Percent cell count reference ranges are not reported, since discordance with absolute values may lead to misinterpretation of CBC data. Current Interpretive Data was last revised on 2017. Testing performed by: [address] [address] Lymphocyte pct 35.2 % [facility] Comment: Interpretive Data Percent cell count reference ranges are not reported, since discordance with absolute values may lead to misinterpretation of CBC data. Current Interpretive Data was last revised on 2017. Testing performed by: [address] [address] Monocyte pct 11.8 % [facility] Comment: Interpretive Data Percent cell count reference ranges are not reported, since discordance with absolute values may lead to misinterpretation of CBC data. Current Interpretive Data was last revised on 2017. Testing performed by: [address] [address] Eosinophil pct 0.8 % [facility] Comment: Interpretive Data Percent cell count reference ranges are not reported, since discordance with absolute values may lead to misinterpretation of CBC data. Current Interpretive Data was last revised on 2017. Testing performed by: [address] [address] Basophil pct 0.6 % [facility] Comment: Interpretive Data Percent cell count reference ranges are not reported, since discordance with absolute values may lead to misinterpretation of CBC data. Current Interpretive Data was last revised on 2017. Testing performed by: [address] [address] Blood 08/09/2024 2:38 PM CDT 08/09/2024 2:47 PM CDT us Jessee Montoya MD PhD LAB BLOOD ORDERABLES Final Result [facility] Department [place] [address] * (ABNORMAL) CBC with auto differential (08/09/2024 2:38 PM CDT) WBC 4.83 3.80 - 9.90 K/cumm Comment:Testing performed by : [address] [address] Hgb 12.2 11.9 - 15.5 g/dL [facility] CORRAL[facility] Comment:Testing performed by : [address] [address] Hct 36.5 35.6 - 45.5 % [facility] CORRAL[facility] Comment:Testing performed by : [address] [address] Plt 277 150 - 400 K/cumm [facility]AL[facility] Comment:Testing performed by : [address] [address] MPV 8.8(L) 9.1 - 12.3 fL [facility] CORRAL[facility] Comment:Testing performed by : [address] [address] RBC 3.99 3.90 - 5.20 M/cumm [facility]RAL[facility] Comment:Testing performed by : [address] [address] MCV 91.5 81.3 - 96.4 fL [facility] CORRALES Comment:Testing performed by : [address] [address] MCH 30.6 27.1 - 33.3 pg [facility]RAL[facility] Comment:Testing performed by : [address] [address] MCHC 33.4 32.3 - 35.7 g/dL [facility]RAL[facility] Comment:Testing performed by : [address] [address] RDW CV 13.5 11.1 - 14.9 % [facility]RAL[facility] Comment:Testing performed by : [address] [address] RDW SD 45.8 35.7 - 48.1 fL [facility] CORRAL[facility] Comment:Testing performed by : [address] [address] NRBC abs 0.00 0.00 - 0.01 K/cumm [facility] Comment:Testing performed by : [address] [address] ANC Prelim 2.48 1.50 - 6.50 K/cumm [facility] Comment: Interpretive Data The rapid ANC is a preliminary automated count and may vary from the final ANC (Neut Abs) reported in the WBC differential that follows. Current interpretive data was last revised 2024. Testing performed by: [address] [address] Blood 08/09/2024 2:38 PM CDT 08/09/2024 2:47 PM CDT us Jessee Montoya MD PhD LAB BLOOD ORDERABLES Final Result [facility] [address] [facility] Department of Laboratories [place], [place] [id number] * Comprehensive metabolic panel (08/09/2024 2:38 PM CDT) [facility] Signature Sodium 141 135 - 145 mmol/L Comment:Testing performed by : [address] [address] Potassium, pl 4.2 3.3 - 4.9 mmol/L [facility] Comment:Testing performed by : [address] [address] Chloride 104 97 - 110 mmol/L [facility] Comment:Testing performed by : [address], [place]., [address] CO2 25 22 - 32 mmol/L [facility] Comment:Testing performed by : [address], [place]., [address] Anion gap 12 2 - 15 mmol/L [facility] Comment:Testing performed by : [address] [address] BUN 13 6 - 25 mg/dL [facility] Comment:Testing performed by : [address], [place]., [address] Creatinine 1.00 0.60 - 1.10 mg/dL [facility] Comment:Testing performed by : [address] [address] Glucose 104 70 - 199 mg/dL [facility] Comment: Interpretive Data Fasting glucose >/= 126 [...] was last revised 2022. Testing performed by: [address] [address] Calcium 9.4 8.5 - 10.3 mg/dL [facility] Comment:Testing performed by : [address] [address] Bilirubin, total 0.2 0.1 - 1.2 mg/dL [facility] Comment:Testing performed by : [address] [address] Protein, pl 6.9 6.5 - 8.5 g/dL [facility] Comment:Testing performed by : [address] [address] Albumin 4.2 3.5 - 5.0 g/dL [facility] Comment:Testing performed by : [address] [address] Alk phos 98 40 - 130 Units/L [facility] Comment:Testing performed by : [address] [address] ALT 16 7 - 45 Units/L [facility] Comment:Testing performed by : [address] [address] AST 24 10 - 45 Units/L [facility] Comment:Testing performed by : [address] [address] Blood 08/09/2024 2:38 PM CDT 08/09/2024 2:47 PM CDT us Jessee Montoya MD PhD LAB BLOOD ORDERABLES Final Result [facility] Department [place] [address] * CT Chest Abdomen W Contrast (08/02/2024 11:34 AM CDT) Anatomical Region Laterality Modality Body N/A Computed Tomogra phy 08/06/2024 4:55 PM CDT Narrative 08/06/2024 5:00 PM CDT EXAM DESCRIPTION: CT CHEST ABDOMEN W CONTRAST REASON FOR STUDY: monitor treatment response, Malignant neoplasm of upper lobe of right lung (HCC) TECHNIQUE: CT scan of the chest and [...] SYRINGE was injected via the intravenous COMPARISON: 04/19/2024 REFERENCE: Per ACR white paper recommendations, unless otherwise specified no follow-up imaging is recommended for incidental renal and adrenal lesions per consensus recommendations based on imaging criteria. Further lab evaluation could be pursued based on clinical findings. FINDINGS: CHEST LUNGS: The patient is status post right upper lobectomy. There is some scarring in the right upper and middle lobes. Minimal atelectasis and scarring is present in the lung bases. No nodules or masses. No pneumonia. PLEURA: No effusion. No pneumothorax. MEDIASTINUM/AURE: No identified masses or abnormal nodes. HEART: Heart size is normal with no pericardial effusion. VASCULATURE CHEST: Atheromatous disease of the aorta without aneurysm. AXILLA: No adenopathy. CHEST WALL: No masses. No subcutaneous air. HARDWARE/LIFELINES: None. MUSCULOSKELETAL CHEST: Are degenerative changes in the spine. ABDOMEN LIVER: Normal size. There is mild fatty infiltration. There is a stable hypodense lesion in the right lobe, most likely cyst. GALLBLADDER: Cholecystectomy BILE DUCTS: The common bile duct measures 1.1 cm,, likely related to the post cholecystectomy state SPLEEN: Normal size. No focal lesions. PANCREAS: No identified cystic or solid masses. No significant calcifications. No adjacent inflammation or peripancreatic fluid collections. Pancreatic duct not dilated. ADRENALS: Thickening of the left adrenal gland is stable and likely secondary to hyperplasia. Normal right adrenal gland. KIDNEYS/URINARY TRACT: No identified significant cystic or solid masses. No stones. No hydronephrosis or hydroureter. Symmetric enhancement. GI: No dilated bowel loops. No obvious wall thickening. Normal appendix. Scattered diverticular disease without diverticulitis. PERITONEUM: No ascites or free air. RETROPERITONEUM: No mass or adenopathy. VASCULATURE ABDOMEN: No abdominal aortic aneurysm. MUSCULOSKELETAL ABDOMEN: Multilevel degenerative changes are present without fracture. No concerning lesions are present. OTHER: No significant abnormality. IMPRESSION: Status post right upper lobectomy. No evidence of recurrent or metastatic disease. Fatty infiltration of the liver. Diverticulosis. Additional findings as above. THIS IS AN ELECTRONICALLY VERIFIED FINAL REPORT 08/06/2024 5:00 PM - Electronically signed by Ronal Brown M.D. LL: DAVID Report ID: [id number] Reading Location: [id number] Procedure Note Ronal Brown MD - 08/06/2024 EXAM DESCRIPTION: CT CHEST ABDOMEN W CONTRAST REASON FOR STUDY: monitor treatment response, Malignant neoplasm of upper lobe of right lung (HCC) TECHNIQUE: CT scan of the chest and abdomen performed with intravenousand without oral contrast using helical scanning technique with dynamic intravenous contrast injection. Reconstructed coronal and sagittal MPRimages reviewed. All images stored on PACS. Automated exposure control wasused as a dose optimization technique for this examination. CONTRAST TYPE/DOSE: 100mL of IOVERSOL 350 MG IODINE/ML INTRAVENOUSSYRINGE was injected via the intravenous COMPARISON: 04/19/2024 REFERENCE: Per ACR white paper recommendations, unless otherwise specifiedno follow-up imaging is recommended for incidental renal and adrenal lesionsper consensus recommendations based on imaging criteria. Further labevaluation could be pursued based on clinical findings. FINDINGS: CHEST LUNGS: The patient is status post right upper lobectomy. There is some scarring in the right upper and middle lobes. Minimal atelectasis and scarring is present in the lung bases. No nodules or masses. Nopneumonia. PLEURA: No effusion. No pneumothorax. MEDIASTINUM/AURE: No identified masses or abnormal nodes. HEART: Heart size is normal with no pericardial effusion. VASCULATURE CHEST: Atheromatous disease of the aorta without aneurysm. AXILLA: No adenopathy. CHEST WALL: No masses. No subcutaneous air. HARDWARE/LIFELINES: None. MUSCULOSKELETAL CHEST: Are degenerative changes in the spine. ABDOMEN LIVER: Normal size. There is mild fatty infiltration. There is a stable hypodense lesion in the right lobe, most likely cyst. GALLBLADDER: Cholecystectomy BILE DUCTS: The common bile duct measures 1.1 cm,, likely related to thepost cholecystectomy state SPLEEN: Normal size. No focal lesions. PANCREAS: No identified cystic or solid masses. No significant calcifications. No adjacent inflammation or peripancreatic fluidcollections. Pancreatic duct not dilated. ADRENALS: Thickening of the left adrenal gland is stable and likelysecondary to hyperplasia. Normal right adrenal gland. KIDNEYS/URINARY TRACT: No identified significant cystic or solid masses.No stones. No hydronephrosis or hydroureter. Symmetric enhancement. GI: No dilated bowel loops. No obvious wall thickening. Normal appendix. Scattered diverticular disease without diverticulitis. PERITONEUM: No ascites or free air. RETROPERITONEUM: No mass or adenopathy. VASCULATURE ABDOMEN: No abdominal aortic aneurysm. MUSCULOSKELETAL ABDOMEN: Multilevel degenerative changes are presentwithout fracture. No concerning lesions are present. OTHER: No significant abnormality. IMPRESSION: Status post right upper lobectomy. No evidence of recurrent or metastatic disease. Fatty infiltration of the liver. Diverticulosis. Additional findings as above. THIS IS AN ELECTRONICALLY VERIFIED FINAL REPORT 08/06/2024 5:00 PM - Electronically signed by Ronal Brown M.D. LL: DAVID Report ID: [id number] Reading Location: [id number] Jessee Montoya MD PhD IMG CT PROCEDURES Fin al Result * POCT creatinine for contrast evaluation (08/02/2024 11:17 AM CDT) Creatinine POC 1.00 0.60 - 1.10 mg/dL Comment:Testing performed by : [facility], [address] [place] [address]., [address] Blood 08/02/2024 11:1 7 AM CDT 08/02/2024 11:17 AM CDT Jessee Montoya MD PhD POINT OF CARE TEST OR DERABLES Final Result [facility] [address] [facility] [place] [address] * eGFR (06/14/2024 2:19 PM GLOBAL MARKETING MANAGER) eGFR 69 >=60 mL/min/1. 73 m2 Comment: Interpretive Data Reference Interval Normal >/= 90 mL/min/1.73m2 Mildly decreased* 60 - 89 mL/min/1.73m2 Mildly to moderately decreased 45 - 59 mL/min/1.73m2 Moderately to severely decreased 30 - 44 mL/min/1.73m2 Severely decreased 15 - 29 mL/min/1.73m2 Kidney Failure < 15 mL/min/1.73m2 *Relative to young adult level Estimated glomerular filtration rate is determined by the 2021 CKD-EPI equation recommended by the National Kidney [...] was last reviewed 2021. Testing performed by: [address] [address] Blood 06/14/2024 2:19 PM GLOBAL MARKETING MANAGER 06/14/2024 2:22 PM GLOBAL MARKETING MANAGER us Jessee Montoya MD PhD LAB BLOOD ORDERABLES Final Result [facility] Department [place] [address] * Differential, auto (06/14/2024 2:19 PM GLOBAL MARKETING MANAGER) Neutrophil abs 2.6 1.5 - 6.5 K/cumm Comment:Testing performed by : [address] [address] Imm gran abs 0.0 0.0 - 0.1 K/cumm [facility] Comment:Testing performed by : [address] [address] Lymphocyte abs 1.2 0.8 - 3.3 K/cumm [facility] Comment:Testing performed by : [address] [address] Monocyte abs 0.5 0.2 - 0.8 K/cumm [facility] Comment:Testing performed by : [address] [address] Eosinophil abs 0.1 0.0 - 0.5 K/cumm [facility] Comment:Testing performed by : [address] [address] Basophil abs 0.0 0.0 - 0.1 K/cumm [facility] Comment:Testing performed b [id number]|2024-08-31 00:05:00|2024-08-31 00:05:00|XMS_ITS|BKG [id number]|External Medical Summaries|[id number]|" Data Portability Created on: August 31, 2024 Jillian Jones .[id number] : [id number] Sex: Female Author Organization [facility] [place] Address [address] [place] [address] [address] Care Team Providers Care Psychopaedic Nurse Name Role Phone VALENTINO WONG Primary Care Provider [phone] Assessment Encounter Date Assessment Date Assessment LastModified [...] [email or web address] Dane Chun MD, [address], [place], [address], 0 18:45:15 Imaging US, pelvis 2019 020 cat [place], [address], [address], [place], [address], 0 14:30:52 US, transvagina l 2019 020 RACHELLE [place], [address], [place], [address], 0 05:00:43 Medication Orders None recorded. Patient [...] [facility], d/b/a [facility], [address], [facility] [place] [address] , Brain Mccabe ra, DO, Labor atory Direc tor. Wilfredo galvan a vagin yazmin, Simi da speci es: [...] paola resul ts of Stacia l or Worden stephany are deter mined by calcu latin [...] e namita cteri stics deter mined by [facility], [facility] d/b/a [facility]. It has not been clear ed or appro ricardo by the U.S. Food and Drug Admin istra tion. The FDA has deter mined that such clear ance or appro mani is not neces monica. Perti nent refer ence inter vals are avail able from the labor atory on reque st. Test( s) perfo rmed by [facility], [facility], d/b/a [facility], [address], [place] [address] , Brain Mccabe ra, , Labor atory Direc tor. Not Available [facility]) [address], [place], [address], 08/12/2019 13:06:33 08/10/19 20 08/11/2019 bacte rial [...] rmed by [facility]oc [facility] logis ts, [facility], d/b/a PathG rou, [address], [place] [address] , Brain Mccabe ra, , Labor atory Direc tor. Gardn erell a [...] paola resul ts of Stacia l or Worden stephany are deter mined by calcu latin [...] e namita cteri stics deter mined by [employer] Inaura, [employer] d/b/a PathGENERAL MEDICAL MERATE roup. It has not been clear ed or appro ricardo by the U.S. Food and Drug Admin istra tion. The FDA has deter mined that such clear ance or appro mani is not neces monica. Perti nent refer ence inter vals are avail able from the labor atory on reque st. Test( s) perfo rmed by [employer] Inaura, [employer], d/b/a PathG roup, [address], [place] [address] , Brain Mccabe ra, DO, Labor atory Direc tor. Not Available [facility] ([facility]) [address] [facility] [address], [place], [address], 08/12/2019 13:06:33 08/10/19 20 08/11/2019 bacte rial [...] [facility], d/b/a PathTorrie gould, [address], [facility] [place] [address] , Brain Mccabe ra, DO, Labor atory [...] paola resul ts of Stacia l or Worden stephany are deter mined by calcu latin [...] e namita cteri stics deter mined by [facility] d/b/a PathG roup. It has not been clear ed or appro ricardo by the U.S. Food and Drug Admin istra tion. The FDA has deter mined that such clear ance or appro mani is not neces monica. Perti nent refer ence inter vals are avail able from the labor atory on reque st. Test( s) perfo rmed by [facility], d/b/a PathG roup, [address], [place] [address] , Brain Mccabe ra, DO, Labor atory Direc tor. Not Available [facility] ([facility]) [address] [facility] [address], [place], [address], 08/12/2019 13:06:33 09/14/19 20 09/16/2019 surgi arelis [...] ricardo in forma connie label ed Jillian Jones and EMB are multi ple piece s [...] Techn ical servi juancho provi ded by Assoc iated Patho logis [facility], d/b/a PathG [employer], [address] [place] [address] Lukasz Gutierrez MD, Labor atory Dire tor. Case revie wed and diagn osis rende red at [facility]o logis [facility], d/b/a [employer], [address], [place] [address] Emilia pantoja MD, Labor atory Direc tor. CONFI DENTI AL Not Available [facility] ([facility]) [address] [facility] [address], [place], [address], 09/16/2019 15:53:32 05/17/19 21 05/17/2020 , lisa simmons md interpretati on Not Available Raquel worley [address], [place], [address], 08/19/2019 11:59:43 07/26/19 21 07/25/2020 pap, IG Pap test SEE RESULT S BELOW CASE REPOR T: Cytol ogy Gynec ologi arelis Repor t Case: [id number] Autho phyllis torrie Provi wang: Pam Stevens, ROLANDA Maher cted: 07/25 1609 Order ing Locat ion: [place] Patho logjim Recei ricardo: 07/26 0902 First Scree n: [...] is recom amy d, as clini jake gutierrez nted. Not Available [facility] (Lab) [address], [place], [address], 07/26/2020 18:36:48 08/19/19 20 US, pelvi s No observ ation record ed. [place] [address] [address], [place], [address], 08/23/2019 10:20:47 Result Notes None recorded. Problems Name Problem SNOMED Code Status Onset Date Resolution Date Notes Provider Name and Address Organization Details Recorded Time Atrophic vaginiti s 38322910 Completed 201807/25/2020 Postmeno pausal atrophic vaginiti s;Record ed Elsewher e: No Locat ion: Raquel reuben [facility] S ource: EHR Med Specialist jessica: N Tamrati ce ID: 0001 Juan David lable Time: 11:00:00 AM Lindy fam [facility] 14:34:[address] Concept Completed 201607/25/2020 Encntr for supervisor scouring pads exam (general ) (routine ) w/o abn findings ;Recorde d Elsewher e: No Locat ion: Daniel alexis [facility] S ource: EHR Med Specialist jessica: N Practi ce ID: 0001 Juan David lable Time: 08:15:00 AM Lindy fam [facility] 14:34:41 Micturit ion finding Completed 201807/25/2020 Urinary incontin ence;Rec orded Elsewher e: No Locat ion: Daniel alexis [facility] S ource: EHR Med Specialist jessica: N Mansi ce ID: 0001 Juan David lable Time: 11:00:00 AM Lindy fam, [facility] 14:34:20 Microsco pic hematuri a [id number] Completed 201207/25/2020 MICROSCO PIC HEMATURI A;Record ed Elsewher e: No [facility] S ource: EHR Med Specialist jessica: N Tamrati ce ID: 0001 Juan David lable Time: 08:30:00 AM Lindy fam, [facility] 14:34:30 Screenin g for malignan t neoplasm of rectum Completed 201607/25/2020 Encounte r for screenin g for malignan t neoplasm of rectum;R ecorded Elsewher e: No [facility]: EHR Med Specialist jessica: N Tamrati ce ID: 0001 Juan David lable Time: 08:15:00 AM Lindy fam, [facility] 14:34:38 Obesity [id number] Completed 201407/25/2020 Obesity; Recorded Elsewher e: No [facility] EHR Med Specialist jessica: N Tamrati ce ID: 0001 Juan David lable Time: 08:30:00 AM Lindy fam [facility] 14:34:[address] Concept Completed 201707/25/2020 Encntr for general adult medical exam w/o abnormal findings ;Recorde d Elsewher e: No Locat ion: [facility] S ource: EHR Med Specialist jessica: N Tamrati ce ID: 0001 Juan David lable Time: 11:00:00 AM Lindy fam [facility] 1 14:34:39 Urinary tract infectio us disease 66632386 Completed 201107/25/2020 Urinary tract infectio n, site not specifie d;Record ed Elsewher e: No [facility] our[facility]: EHR Med Specialist jessica: N Practi ce ID: 0001 Juan David lable Time: 11:30:00 AM [facility]emma [facility], [facility] 14:34:45 Evaluati on finding Completed 201607/25/2020 Hematuri a, unspecif ied;Beny rded Elsewher e: No Locat ion: [facility] S ource: EHR Med Specialist jessica: N Practi ce ID: 0001 Juan David lable Time: 08:15:00 AM Lindy Thompson cristel, [facility] 14:34:24 Speciali zed medical examinat ion Completed 201407/25/2020 ROUTINE JAVA MANAGER EXAMINAT ION;Beny rded Elsewher e: No Locat ion: [facility] S ource: EHR Med Specialist jessica: N Practi ce ID: 0001 Juan David lable Time: 08:30:00 AM Lindy fam, [facility] 14:34:43 Malaise and fatigue [id number] Completed 201407/25/2020 Fatigue / Malaise; Recorded Elsewher e: No Locat ion: [facility] S ource: EHR Med Specialist jessica: N Practi ce ID: 0001 Juan David lable Time: 08:30:00 AM Lindy fam, [facility] 14:34:28 Screenin g for malignan t neoplasm of cervix Completed 201107/25/2020 Screenin g for malignan t neoplasm s of the cervix;R ecorded Elsewher e: No Locat ion: [facility] S ource: EHR Med Specialist jessica: N Tamrati ce ID: 0001 Juan David lable Time: 11:30:00 AM Lindy fam [facility] 14:34:35 Carbuncl e of buttock [id number] Completed 201207/25/2020 Carbuncl e and furuncle of buttock; Recorded Elsewher e: No Locat ion: [facility] S ource: EHR Med Specialist jessica: N Practi ce ID: 0001 Juan David lable Time: 08:30:00 AM Lindy fam [facility] 14:34:18 Dyspareu kike [id number] Completed 201107/25/2020 Dyspareu kike;Beny rded Elsewher e: No Locat ion: [facility] S ource: EHR Med Specialist jessica: N Tamrati ce ID: 0001 Juan David lable Time: 11:30:00 AM Lindy fam [facility] 14:34:22 Increase d frequenc y of urinatio n [id number] Completed 201007/25/2020 Urinary frequenc y;Tamrati ce ID: 0001 Lindy fam [facility] 14:34:26 Problem Notes None recorded. Procedures Surgical History Date Name Laterality Status Provider Name and Address Organization Details Recorded Time 021 Date of Last Pap Smear completed Lindy Thompson [facility] 07/25/2020 14:34:50 021 hernia repair completed Lindy Thompson [facility] 07/25/2020 14:36:23 020 Hysteroscopy completed Pam Pablo CNM [address], [place], [address], [facility] 09/14/2019 13:03:10 020 Hysteroscopy biopsy completed [facility] 09/15/2019 13:05:38 019 Carpal tunnel surgery completed [facility] 08/22/2019 18:44:35 018 radical bunionectomy completed [facility] 07/25/2020 09:06:14 009 cholecystectomy completed [facility] 08/19/2019 12:10:16 Imaging Results Imaging Date Name Status LastModified by Organiz ation Details LastModified Time 08/19/2019 US, pelvis [place] [address] [address], [place], [address], 08/23/2019 10:20:47 Procedure Notes None recorded. Medical [...] Prescrib ed Elsewher e: Yes Loca tion: [facility] M odify By: nae le DateTime : [...] Prescrib ed Elsewher e: No Locat ion: [facility] odify By: thelma barnard DateTime : 03/04/20 [...] Yes Loca tion: [facility] odify By: nae le DateTime : 10/20/19 15 08:30:00 AM Not Available Not Available Not Available cephalexi n 500 mg capsule 08/18 completed Not Available Not Available Not Available Effexor 75 mg tablet take 1 tablet (75MG) by oral route 2 times every day with food 07/03 completed Prescrib ed Elsewher e: No Locat ion: [facility] odify By: kaitlynn deal DateTime : 03/24/20 [...] mcg (50,000 unit) capsule take 1 capsule (20196IV ITS) by oral route every week 10/19 completed Prescrib ed Elsewher e: No Locat ion: Latriciaaly reuben [facility] Leydi odify By: nae Pang r DateTime : 03/28/20 13 12:07:08 PM Not Available Not Available Not Available monteluka st 4 mg oral granules in packet 07/25 completed Prescrib ed Elsewher e: Yes Loca tion: Daniel reuben [facility] Leydi odify By: nae Pang r DateTime : [...] Updated DateTime 07/25/2020 156.21 cm 34 kg/m2 71314.4 g 123 mm[Hg] 82 mm[Hg] Lindy Thompson [facility] 14:33:01 Date Recorded Body height Body mass index (BMI) Body weight Systolic blood pressure Diastolic blood pressure Provider Name and Address Organization Details Last Updated DateTime 09/14/2019 156.21 cm 35.9 kg/m2 25436.33 g 111 mm[Hg] 75 mm[Hg] Lindy Thompson [facility] 0 12:34:52 Date Recorded Body height Body mass index (BMI) Body weight Systolic blood pressure Diastolic blood pressure Provider Name and Address Organization Details Last Updated DateTime 09/21/2019 156.21 cm 35.9 kg/m2 11151.33 g 164 mm[Hg] 94 mm[Hg] Lindy Thompson [facility] 0 12:13:19 Date Recorded Body height Body mass index (BMI) Body weight Systolic blood pressure Diastolic blood pressure Provider Name and Address Organization Details Last Updated DateTime 08/19/2019 156.21 cm 35.9 kg/m2 02044.33 g 126 mm[Hg] 86 mm[Hg] Lindy Thompson [facility] 0 12:19:37 Social History Question Answer Notes LastModified by Organizat ion Details LastModified Time Tobacco Smoking Status Never Smoker Lindy Thompson [facility], [facility] 08/19/2019 12:17:10 Are You Blind Or Do You Have Difficulty Seeing? No [email or web address] Information n ot available 07/25/2020 What Is Your Level Of Caffeine Consumption? Moderate [email or web address] Information not available 07/25/2020 In The 14 Days Before Symptom Onset, Have You Had Close Contact With A Laboratory-confirm ed COVID-19 While That Case Was Ill? No [email or web address] Information n ot available 07/25/2020 In The 14 Days Before Symptom Onset, Have You Had Close Contact With A Person Who Is Under Investigation For COVID-19 While That Person Was Ill? No [email or web address] Information not available 07/25/2020 Have You Been To An Area Known To Be High Risk For COVID-19? No [email or web address] Information not available 07/25/2020 Are You Deaf Or Do You Have Serious Difficulty Hearing? No [email or web address] Information not available 07/25/2020 What Type Of Diet Are You Following? REGULAR [id number] Information n ot available 07/25/2020 What Was The Date Of Your Most Recent Tobacco Screening? 07/25/2020 Information not available 07/25/2020 Have You Ever Been Counseled For Unhealthy Alcohol Use? No Information not available 07/25/2020 Do You Use Your Seat Belt Or Car Seat Routinely? Yes [email or web address] Information not available 07/25/2020 Do You Have Smoke And Carbon Monoxide Detectors In Your Home? Yes [email or web address] Information not available 07/25/2020 How Much Tobacco Do You Smoke? No [email or web address] Information not available 09/14/2019 Do You Use Sunscreen Routinely? Yes [email or web address] Information not available 07/25/2020 Has Tobacco Cessation Counseling Been Provided? No [email or web address] Information not available 07/25/2020 Sex: Unknown Functional Status Question Answer Note LastModified by Organizat ion Details LastModified Time Do you use any illicit or recreational drugs? No [email or web address] Information not available 07/25/2020 Do you or have you ever used any other forms of tobacco or nicotine? No [email or web address] Information not available 07/25/2020 What is your level of alcohol consumption? Occasional [email or web address] Information not available 08/19/2019 Do you or have you ever used smokeless tobacco? Never used smokeless tobacco [email or web address] Information not available 09/14/2019 Are you able to walk? YESWOREST [email or web address] Information not available 07/25/2020 Do you or have you ever used e-cigarettes or vape? Never used electronic cigarettes Information not available 09/14/2019 What is your exercise level? Occasional [email or web address] Information not available 07/25/2020 Mental Status Question Answer Note LastModified by Organization D etails LastModified Time Do you feel stressed (tense, restless, nervous, or anxious, or unable to sleep at night)? [id number] [email or web address] Information not available 07/25/2020 Family History Nothing Reported. Medical History Condition Response Other Anxiety Disorder Y Kidney or Bladder Problems Y GI Problems [...]
--- OUTSIDE RECORDS SUMMARY | 2024-08-31 00:05 | XMS_ITS ---
Author Organization [facility] [address] Address [address] [place] [address] Care Team Providers Care Linen Worker Name Role Phone Valentino Martinez MD Primary Care Provider Jessee Montoya MD PhD Unavailable [phone] Hai Marley MD Unavailable Active Problems Patient [...] (01/21/2019): Added automatically from request for surgery [id number] Imbalance 12/28/2018 Assessment & Plan (12/28/2018 9:09 AM CDT): Discussed balance activities such as yoga. No evidence of inner ear pathology such as BPPV today. Ear itching 12/28/2018 Assessment & Plan (12/28/2018 9:10 AM CDT): 50/50 alcohol and vinegar mix as needed. Keep ears dry. Tinnitus, bilateral 12/07/2018 Arthritis 11/03/2018 Overview (11/03/2018): Added automatically from request for surgery [id number] Diverticulosis of colon 01/20/2018 Hiatal hernia 01/20/2018 Polyp of colon 01/20/2018 History of colon polyps 12/09/2017 Overview (12/09/2017): Added automatically from request for surgery [id number] Gastroesophageal reflux disease 12/09/2017 Overview (12/09/2017): Added automatically from request for surgery [id number] Chest pain 11/23/2017 Assessment & Plan (11/23/2017 [...]
--- OUTSIDE RECORDS SUMMARY | 2024-08-31 00:05 | XMS_ITS | Clinical Summary ---
Author Organization [facility] Address [address] [place] [address] Care Team Providers Care Hot Plate Plywood Press Offbearer Name Role Phone Rm Ansari MD Primary Care Provider [phone] Valentino Martinez MD Unavailable [phone] Source Comments [facility],non-owned Affiliates and Associated Physician Practices is amultiple site organization consisting of ambulatory clinics and hospital sitesin [place], [place], [place] and [place]. This disclosure is being madepursuant to the Care Everywhere program and may not contain all information available regarding this patient. Last updated 18.[facility] Allergies No known active allergies Medications * Be aware that medications may not be up to date on this document. Alwaysverify current medications with the patient. famotidine (PEPCID) 20 MG tablet Take 20 [...] Take by mouth once daily Active Calcium Carb-Cholecalci ferol (CALCIUM 600 + D PO) Active HYDROcodone-evelyn taminophen (NORCO) 5-325 MG tablet Take 1 tablet by mouth every 6 hours as needed for Pain 30 tablet 0 Active Social History Tobacco Use Types Packs/Day Years Used Date Smoking Tobacco: Never Smokeless Tobacco: Never Alcohol Use Standard Drinks/Week Comments Yes 1 (1 standard drink = 0.6 oz pur e alcohol) socially Comments Unknown Sex and Gender Information Value Date Recorded Sex Assigned at Not on file Legal Sex Female 9:23 AM CDT Gender Identity Not on file Sexual Orientation [...] VACCINE ( - 2023-2 5 season) 2023 DEPRESSION SCREENING 04/20/2024 MEDICARE AWV CALENDAR YEAR 2024 INFLUENZA VACCINE (Season Ended) 2024 Respiratory Syncytial Virus (RSV) Vaccine Pt: [...] to complete this topic MENINGOCOCCAL (Group B) VACC INE SHARED DECISION-MAKING Aged Out No longer eligibl e based on patient's age to complete this topic MENINGOCOCCAL GROUPS A/C/Y/W VACCINE Aged Out No longer eligible b ased on patient's age to complete this topic Medical Devices Implanted Type Area Local Sales Associate Device Identifier Shelf Expiration Date Model / Serial / Lot Graft Bone Tenfuse Pip 10d Algrf 18x2.7 Implanted:Qty: 1 on 02/14/2020 by Hortencia Monte MD at [facility] Right: Foot [employer] 06/09/2021 [id number] / / [id number] Description:Ref [id number] 2.0 X 14mm Screw Implanted:Qty: 1 on 02/14/2020 by Hortencia Monte MD at [facility] Right: Foot [id number] / / 2.4 X 12mm Screw Implanted:Qty: 1 on 02/14/2020 by Hortencia Monte MD at [facility] Right: Foot [id number] / / Explanted Type Area Local Sales Associate Device Identifier Shelf Expiration Date Model / Serial / Lot Wire K 1.1mm 150mm Troc Blnt Fx Explanted:Qty: 1 on 02/14/2020 by Hortencia Monte MD at [facility] Right: Foot DNs[employer] [id number] / / 2.0 X 10mm Screw Explanted:Qty: 1 on 02/14/2020 at [facility] Right: Foot [id number] / / [id number] Insurance [facility] MANAGED MEDICARE ADV [facility] MANAGED MEDICARE ADV [facility] * Guarantor: JILLIAN JONES Account Type Relation to Patient Date of Phone Billing Address Personal/Family [address] [place] [address] SELF PAY NO INSURANCE Member Subscriber Plan / Payer (Ef fective for All Dates) Name:Jillian Jones Member ID:Not on file Relation to Subscriber:Not on file Name:ROBERTJILLIAN Subscriber ID:Not on file Address: [address] [address] Payer ID:Not on file Group ID:Not on file Type:Self Pay Address: [facility] MANAGED MEDICARE ADV * Guarantor: JILLIAN JONES Account Type Relation to Patient Date of Phone Billing Address Personal/Family [address] [place] [address] SELF PAY NO INSURANCE Member Subscriber Plan / Payer (Ef fective for All Dates) Name:RobertJillian williamson Member ID:Not on file Relation to Subscriber:Not on file Name:ROBERTJILLIAN Subscriber ID:Not on file Address: [address] [place] [address] Payer ID:Not on file Group ID:Not on file Type:Self Pay Address: [facility] MANAGED MEDICARE ADV * Guarantor: JILLIAN JONES Account Type Relation to Patient Date of Phone Billing Address Personal/Family [address] [address] SELF PAY NO INSURANCE Member Subscriber Plan / Payer (Ef fective for All Dates) Name:Jillian Jones Member ID:Not on file Relation to Subscriber:Not on file Name:JILLIAN JONES Subscriber ID:Not on file Address: [address] [place] [address] Payer ID:Not on file Group ID:Not on file Type:Self Pay Address: [facility] MANAGED MEDICARE ADV Care Teams Hot Plate Plywood Press Offbearer Relationship Specialty Start Date End Date Rm Ansari MD PCP - General 02/27/20 Valentino Martinez MD [address] [place] [address] Family Medicine 02/27/20
--- OUTSIDE RECORDS SUMMARY | 2024-08-31 00:05 | XMS_ITS | CONTINUITY OF CARE DOCUMENT ---
Author Name bonnie nicole Address Unknown Organization [facility] Address [address] [place] [address] [address] [place] [address] Phone [phone] Care Team Providers Care Trench Digger Name Role Phone bonnie nicole Unavailable Unavailable INSURANCE PROVIDERS Payer name Policy type / Coverage type [employer] party ID [id number]- OPEN ACCESS/PPO Other [id number]
--- OUTSIDE RECORDS SUMMARY | 2024-08-31 00:05 | XMS_ITS | Clinical Summary ---
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 No evidence of inner ear pathology such as BPPV today. Ear itching 12/28/2018 Assessment & Plan (12/28/2018 9:10 AM CDT): 50/50 alcohol and vinegar mix as needed. Keep ears dry. Tinnitus, bilateral 12/07/2018 Arthritis 11/03/2018 Overview (11/03/2018): Added automatically from request for surgery [id number] Diverticulosis of colon 01/20/2018 Hiatal hernia 01/20/2018 Polyp of colon 01/20/2018 History of colon polyps 12/09/2017 Overview (12/09/2017): Added automatically from request for surgery [id number] Gastroesophageal reflux disease 12/09/2017 Overview (12/09/2017): Added automatically from request for surgery [id number] Chest pain 11/23/2017 Assessment & Plan (11/23/2017 [...] Date Type Department Care Team Description 08/09/2024 3:15 PM CDT Office Visit [facility] On[facility] [address] [place] [address] [address] [place] [address] Jessee Montoya MD PhD Malignant neoplasm of upper lobe of right lung (HCC) (Primary Dx) 08/09/2024 2:45 PM CDT Lab [facility] at [address] [address] Malignant neoplasm of upper lobe of right lung (HCC) 08/02/2024 10:59 AM CDT - 08/02/2024 11:59 PM CDT Hospital Encounter [facility] [address] [place] [address] Malignant neoplasm of upper lobe of right lung (HCC) Discharge Disposition: Discharge to home or self care 06/14/2024 2:45 PM CREW BOSS Office Visit [facility] On[facility] [address] [facility] [address] [place] [address] Jessee Montoya MD PhD Malignant neoplasm of upper lobe of right lung (HCC) (Primary Dx) 06/14/2024 2:00 PM CREW BOSS Lab [facility] at [address] [address] Malignant neoplasm of upper lobe of right lung (HCC) from Last 3 Months Immunizations Immunization Administration [...] oz pur e alcohol) 1x/month with dinner [facility] Utilities Answer Date Recorded In the past [...] often do you attend chur ch or samaritan services? Never 02/04/2024 Do you belong to any clubs o r organizations such as confucianism groups, unions, fraternal or athletic groups, or [...] any time in the past 12 m [facility], were you homeless or living in a snf (including now)? No 02/04/2024 Personal Safety Answer Date Recorded Have you ever been in or are you currently in a harmful physical or emotional relationship or is someone making you feel afraid or unsafe? Denies 02/04/2024 Comments No Sex and Gender Information Value Date Recorded Sex Assigned at Not on file Legal Sex Female 3:46 AM CREW BOSS Gender Identity Female 04/16/2021 7:44 PM CREW BOSS Sexual Orientation Straight 11/22/2018 7: 26 PM [...] (1 - Tdap) 08/30/2023 4 Influenza Vaccine (Season Ended) 2024 03/01/20 20, 03/06/2015 Fall Risk Assessment 02/05/2025 02/06/2024, 12/24/19 24 Colon Cancer Screening-Colonoscopy 12/16/2027 12/15/2017, 06/27/2015 Colon Cancer Screening-CT Colonography Discontinued 12/15/2017, 06/27/2015 Colon Cancer Screening-DNA Stool Discontinued 12/16/19 18, 06/27/2015 Colon Cancer Screening-FIT Discontinued 12/15/2017, Colon Cancer Screening-Sigmoidoscopy Discontinued 12/15/2017, 06/27/2015 Medical Devices Implanted Type Area Contracts Advisor Device Identifier Shelf Expiration Date Model / Serial / Lot Synthes 201.364.97 2mm 14mm Self Tap Self Retain Stardrive Cortex T6 Screw Bone - [id number] Implanted:Qty: 2 on 10/27/2017 by Hortencia Monte DPM at [facility] Right: First Toe Synthes I [id number] / / Synthes 201.366.97 2mm 16mm Self Tap Self Retain Stardrive Cortex T6 Screw Bone - [id number] Implanted:Qty: 1 on 10/27/2017 by Hortencia Monte DPM at [facility] Right: First Toe Synthes I 201.366.97 / / [employer] At2-C26-S Acutrak 2 2.5-2.8mm 26mm Headless Self Cut Cannulated Variable - [id number] Implanted:Qty: 1 on 11/09/2018 by Gustavo Lacy MD at [facility] [employer] AT2-C26-S / / [employer] At2-C26-S Acutrak 2 2.5-2.8mm 26mm Headless Self Cut Cannulated Variable - [id number] Implanted:Qty: 1 on 02/01/2019 by Gustavo Lacy MD at [facility] Right: Index Finger [employer] [id number] 01/26/2025 AT2-C26-S / / [id number] Procedures Procedure Name Priority Date/Time Associated Diagnosis [...] AM CDT EGFR Routine 06/14/2024 2:19 PM CREW BOSS Malignant neoplasm of upper lobe of right lung (HCC) DIFFERENTIAL AUTO Routine 06/14/2024 2:1 9 PM CREW BOSS Malignant neoplasm of upper lobe of right lung (HCC) COMPREHENSIVE METABOLIC PANEL Routine 06/14/2024 2:19 PM CREW BOSS Malignant neoplasm of upper lobe of right lung (HCC) CBC WITH AUTO DIFFERENTIAL Routine 06/14/2024 2:19 PM CREW BOSS Malignant neoplasm of upper lobe of right [...] was last reviewed 2021. Testing performed by: [address] [address] Blood 08/09/2024 2:38 PM CDT 08/09/2024 2:47 PM CDT us Jessee Montoya MD PhD LAB BLOOD ORDERABLES Final Result [facility] [address] [facility] Department [place] [address] * Differential, auto (08/09/2024 2:38 PM CDT) Neutrophil abs 2.48 1.50 - 6.50 K/cumm Comment:Testing performed by : [address] [address] Imm gran abs 0.01 0.00 - 0.10 K/cumm AN[facility]IO Comment:Testing performed by : [address] [address] Lymphocyte abs 1.70 0.80 - 3.30 K/cumm ANTONIO Comment:Testing performed by : [address] [address] Monocyte abs 0.57 0.20 - 0.80 K/cumm [facility] Comment:Testing performed by : [address] [address] Eosinophil abs 0.04 0.00 - 0.50 K/cumm [facility] Comment:Testing performed by : [address] [address] Basophil abs 0.03 0.00 - 0.10 K/cumm [facility] Comment:Testing performed by : [address] [address] Neutrophil pct 51.4 % [facility] Comment: Interpretive Data Percent cell count reference ranges are not reported, since discordance with absolute values may lead to misinterpretation of CBC data. Current Interpretive Data was last revised on 2017. Testing performed by: [address] [address] Imm gran pct 0.2 % [facility] Comment: Interpretive Data Percent cell count reference ranges are not reported, since discordance with absolute values may lead to misinterpretation of CBC data. Current Interpretive Data was last revised on 2017. Testing performed by: [address] [address] Lymphocyte pct 35.2 % [facility] Comment: Interpretive Data Percent cell count reference ranges are not reported, since discordance with absolute values may lead to misinterpretation of CBC data. Current Interpretive Data was last revised on 2017. Testing performed by: [address] [address] Monocyte pct 11.8 % [facility] Comment: Interpretive Data Percent cell count reference ranges are not reported, since discordance with absolute values may lead to misinterpretation of CBC data. Current Interpretive Data was last revised on 2017. Testing performed by: [address] [address] Eosinophil pct 0.8 % [facility] Comment: Interpretive Data Percent cell count reference ranges are not reported, since discordance with absolute values may lead to misinterpretation of CBC data. Current Interpretive Data was last revised on 2017. Testing performed by: [address] [address] Basophil pct 0.6 % [facility] Comment: Interpretive Data Percent cell count reference ranges are not reported, since discordance with absolute values may lead to misinterpretation of CBC data. Current Interpretive Data was last revised on 2017. Testing performed by: [address] [address] Blood 08/09/2024 2:38 PM CDT 08/09/2024 2:47 PM CDT us Jessee Montoya MD PhD LAB BLOOD ORDERABLES Final Result [facility] [address] [facility] Department [place] [address] * (ABNORMAL) CBC with auto differential (08/09/2024 2:38 PM CDT) WBC 4.83 3.80 - 9.90 K/cumm Comment:Testing performed by : [address] [address] Hgb 12.2 11.9 - 15.5 g/dL [facility] Comment:Testing performed by : [address] [address] Hct 36.5 35.6 - 45.5 % [facility] Comment:Testing performed by : [address] [address] Plt 277 150 - 400 K/cumm [facility] Comment:Testing performed by : [address] [address] MPV 8.8(L) 9.1 - 12.3 fL [facility] Comment:Testing performed by : [address] [address] RBC 3.99 3.90 - 5.20 M/cumm [facility] CORRALES Comment:Testing performed by : [address] [address] MCV 91.5 81.3 - 96.4 fL [facility] CORRALES Comment:Testing performed by : [address] [address] MCH 30.6 27.1 - 33.3 pg [facility] CORRALES Comment:Testing performed by : [address] [address] MCHC 33.4 32.3 - 35.7 g/dL [facility] CORRALES Comment:Testing performed by : [address] [address] RDW CV 13.5 11.1 - 14.9 % [facility] Comment:Testing performed by : [address] [address] RDW SD 45.8 35.7 - 48.1 fL [facility] CORRALES Comment:Testing performed by : [address] [address] NRBC abs 0.00 0.00 - 0.01 K/cumm [facility]RAL[facility] Comment:Testing performed by : [address] [address] ANC Prelim 2.48 1.50 - 6.50 K/cumm [facility] Comment: Interpretive Data The rapid ANC is a preliminary automated count and may vary from the final ANC (Neut Abs) reported in the WBC differential that follows. Current interpretive data was last revised 2024. Testing performed by: [address] [address] Blood 08/09/2024 2:38 PM CDT 08/09/2024 2:47 PM CDT us Jessee Montoya MD PhD LAB BLOOD ORDERABLES Final Result [facility] [address] [facility] Department [place] [address] * Comprehensive metabolic panel (08/09/2024 2:38 PM CDT) Sodium 141 135 - 145 mmol/L Comment:Testing performed by : [address] [address] Potassium, pl 4.2 3.3 - 4.9 mmol/L [facility] CORRALES Comment:Testing performed by : [address] [address] Chloride 104 97 - 110 mmol/L [facility] Comment:Testing performed by : [address], [place]., [address] CO2 25 22 - 32 mmol/L [facility] Comment:Testing performed by : [address], [place]., [address] Anion gap 12 2 - 15 mmol/L [facility] Comment:Testing performed by : [address], [place]., [address] BUN 13 6 - 25 mg/dL [facility] Comment:Testing performed by : [address], [place]., [address] Creatinine 1.00 0.60 - 1.10 mg/dL [facility] Comment:Testing performed by : [address], [place]., [address] Glucose 104 70 - 199 mg/dL [facility] Comment: Interpretive Data Fasting glucose >/= [...] was last revised 2022. Testing performed by: [address] [address] Calcium 9.4 8.5 - 10.3 mg/dL [facility] Comment:Testing performed by : [address] [address] Bilirubin, total 0.2 0.1 - 1.2 mg/dL [facility] Comment:Testing performed by : [address] [address] Protein, pl 6.9 6.5 - 8.5 g/dL [facility] Comment:Testing performed by : [address] [address] Albumin 4.2 3.5 - 5.0 g/dL [facility] CORRALES Comment:Testing performed by : [address] [address] Alk phos 98 40 - 130 Units/L [facility]RALES Comment:Testing performed by : [address] [address] ALT 16 7 - 45 Units/L [facility] Comment:Testing performed by : [address] [address] AST 24 10 - 45 Units/L [facility] Comment:Testing performed by : [address] [address] Blood 08/09/2024 2:38 PM CDT 08/09/2024 2:47 PM CDT us Jessee Montoya MD PhD LAB BLOOD ORDERABLES Final Result Performing Organization Address City/State/[facility] Co de Phone Number AN[facility] [address] [facility] Department [place] [address] * CT Chest Abdomen W Contrast (08/02/2024 [...] Ronal Brown M.D. LL: DAVID Report ID: [id number] Reading Location: [id number] Procedure Note Ronal Brown MD - 08/06/2024 [...] Ronal Brown M.D. LL: LL Report ID: [id number] Reading Location: [place] [address] us Jessee Montoya MD PhD IMG CT PROCEDURES Fin al Result * POCT creatinine for contrast evaluation (08/02/2024 11:17 AM CDT) Creatinine POC 1.00 0.60 - 1.10 mg/dL Comment:Testing performed by : [facility], [address] [place] [address]., [address] Blood 08/02/2024 11:1 7 AM CDT 08/02/2024 11:17 AM CDT us Jessee Montoya MD PhD POINT OF CARE TEST OR DERABLES Final Result [facility] [address] [facility] Department [place] [address] * eGFR (06/14/2024 2:19 PM CREW BOSS) eGFR 69 >=60 mL/min/1. 73 m2 [id number]|2024-08-31 11:15:02|2024-08-31 11:15:02|[id number]||||"History and Physical Update Update Date/Time: 08/31/24 11:15 History and Physical has been reviewed, including an updated exam of the patient. There are NO changes in the patient's condition. Risks, benefits, and alternatives have been discussed and questions answered. Patient agrees to proceed with procedure."
--- OUTSIDE RECORDS SUMMARY | 2024-08-31 00:05 | XMS_ITS | Continuity of Care Document ---
Author Organization [employer] [place] Address [address] [facility] [address] [place] [address] Phone Care Team Providers Care Lehr Stripper Name Role Phone Hai Falcon PT Unavailable Unavailable Procedures Procedure Date Therapeutic Activities Neuromuscular Re-Ed Therapeutic Exercise Neuromuscular Re-Ed Therapeutic Activities Manual Therapy Hot or Cold Pack Therapeutic Activities Neuromuscular Re-Ed Dec- Hot or Cold Pack Manual Therapy Therapeutic Activities Neuromuscular Re-Ed Dec- Hot or Cold Pack Therapeutic Activities Neuromuscular Re-Ed Dec- Hot or Cold Pack Dec- Therapeutic Activities Hot or Cold Pack Dec- Neuromuscular Re-Ed Dec- Therapeutic Activities Neuromuscular Re-Ed Dec- Hot or Cold Pack Dec- Therapeutic Activities Neuromuscular Re-Ed Dec- Hot or Cold Pack Dec- Therapeutic Activities Neuromuscular Re-Ed Hot or Cold Pack Neuromuscular Re-Ed Therapeutic Activities Hot or Cold Pack Therapeutic Activities Neuromuscular Re-Ed Hot or Cold Pack Manual Therapy Therapeutic Activities Neuromuscular Re-Ed Hot or Cold Pack Doc neg elder mal no plan Therapeutic Activities PT Evaluation Low Complexity Therapeutic Exercise Advance Directives Directive Yes / No Effective Date File Name No Information Encounters Encounter Description Practice Location Reason(s) For Visit Diagnoses Date Provider Providers Copied on Encounter [facility] [address] [place] [address], [place], [place], [id number], tel:[phone] [place] No Information Jan- 0- 2 Terrie Hai. . [facility] [address] [place] [address], [place], [place], [id number], tel:[phone] [place] No Information Jan-0 2 Terrie Hai. . Referring Provider: Valentino Martinez [address] [place] [address] [address], [place], [place], [facility]. tel:[phone] [place] [address] [address] [place] [address], [place], [place], [id number], tel:[phone] [place] No Information 0 2 Terrie Hai. . Referring Provider: Marcelo Gar[address] [place] [address] [address], [place], [address]. tel:[phone] [facility] [address] [place] [address], [id number], tel:[phone] [place] No Information Sep-2 2 Terrie Hai. . Referring Provider: [facility] [address], [place], [address]. tel:[phone] [facility] [address] [facility] [address], [place], [place], [id number], tel:[phone] [place] No Information Sep-2 2 Terrie Hai. . Referring Provider: [facility] [address], [place], [address]. tel:[phone] [place] [address] [facility] [address], [place], [place], [id number], [place] tel:[phone] [place] No Information Sep-2 2-202 2 Terrie Hai. . Referring Provider: Valentino Martinez [address] [place] [address] [address], [place], [facility]. tel:[phone] [place] [address] [facility] [address], [place], [place], [id number], [place] tel:[phone] [place] No Information Sep-2 0-202 2 Terrie Hai. . Referring Provider: Marcelo [address] [place] [address] [address], [place], [facility]. tel:[phone] [place] [address] [place], [place] [address], [place], [place], [id number], tel:[phone] [place] No Information Sep-1 3-202 2 Terrie Hai. . Referring Provider: [facility] [address], [place], [facility]. tel:[phone] [place] [address] [place], [place] [address], [place], [place], [id number], [place] tel:[phone] [place] No Information Sep-0 8-202 2 Terrie Hai. . Referring Provider: [facility] [address], [place], [facility]. tel:[phone] [place] [address] [facility] [address], [place], [place], [id number], [place] tel:[phone] [place] No Information Sep-0 6-202 2 Terrie Hai. . Referring Provider: Ju[facility] [address], [place], [facility]. tel:[phone] [place] [address] [facility] [address], [place], [place], [id number], [place] tel:[phone] [place] No Information Sep-0 2-202 2 Terrie Hai. . Referring Provider: Ju[facility] [address], [place], [facility]. tel:[phone], [id number], tel:[phone] [place] No Information Dec-0 2 Terrie Hai. . Referring Provider: Valentino Martinez [address] [place] [address] [address], [place], [facility]. tel:[phone], [id number], tel:[phone] [place] No Information 2 Terrie Hai. . Referring Provider: Valentino Martinez [address] [place] [address] [address], [place], [facility]. tel:[phone], [id number], tel:[phone] [place] No Information Nov-2 2 Terrie Hai. . Referring Provider: Valentino Martinez [address] [place] [address] [address], [place], [facility]. tel:[phone] Family History Family Member Type Diagnosis Age At Onset No Information Payers Payer name Insurance type Covered constitution party ID dioni sethi(s) AARP Medicare Complete 16 [id number] Social History Type Description Quantity Date Captured Comments Sex Female Smoking Status No Information Chief Complaint And Reason For Visit No Information Reason For Referral Reason For Referral No Information History Of Present Illness Encounter Date Complaint History Of Prese nt Illness No Information Functional Status Date Functional Assessmen t No Information Instructions Date Instruction Additional Infor mation Giving encouragement to exercise Related to Overweight Giving encouragement to exercise Related to Overweight Assessments Type Assessment Date No Information Patient Care Teams Name Effective Dates (start - stop) Status Members No Information
[2024-08-31 10:05] VITALS: BP 130/76; PULSE 82; RESP 16; TEMP 36.6; O2SAT 100; BMI 28.0
--- NOTE | 2024-08-31 10:16 | P.PNAN_ITS ---
Anes - Initial Pre Proc Eval Procedure: Operation Date: 08/31/24 11:00 Proposed Procedures p Esophagogastroduodenoscopy - Joseluis Broderick MD Date/Time: 08/31/24 10:16 Surgeon: Joseluis Broderick MD Pre Op Diagnosis: Other specified postprocedural states Patient Data Age: 69 Gender: F Height: 1.57 m Weight: 72 kg Allergies Allergy/AdvReac Type Severity Reaction Status Date / Time No Known Allergies Allergy Mild Verified 08/31/24 10:14 Home Medications Medication Instructions Recorded Confirmed Type osimertinib 80 mg tablet (Tagrisso) 80 mg PO DAILY #30 tabs 05/02/24 08/31/24 Rx venlafaxine 150 mg 150 mg PO QAM #90 caps 08/01/24 08/31/24 Rx capsule,extended release 24 hr Patient hx anesthesia problems: none Family hx anesthesia problems: none Results Review: All pre-operative results and documents have been reviewed as part of the pre- operative evaluation. [facility] Past Medical History Medical History Dysphagia Irritable bowel syndrome with diarrhea Gas bloat syndrome BMI 32.0-32.9,adult Depression Adenomatous colon polyp GERD (gastroesophageal reflux disease) Surgical History Surgical History History of Bárbara fundoplication S/P partial lobectomy of lung Minimally invasive robotic-assisted right upper lobectomy Dr. Bola Almanza Status post laparoscopic Bárbara fundoplication Laparoscopic Bárbara fundoplication, placement of right chest tube History of cholecystectomy History of toe surgery hammer toe History of bunionectomy Status post fusion of joint of finger S/P carpal tunnel release Family History Family History Father Heart disease Hypertension Mother No problems noted. Sibling No problems noted. 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 Informed Consent: The patient's anesthetic plan and its attendant risks and benefits were discussed with the patient/family/POA. Questions were solicited and answers provided to the satisfaction of the patient/family/POA.
[2024-08-31] MEDS: LACTATED RINGERS 1,000 ML 150 ML IV CONT (10:25)
--- NOTE | 2024-08-31 11:15 | P.HPUP_ITS ---
History and Physical Update Update Date/Time: 08/31/24 11:15 History and Physical has been reviewed, including an updated exam of the patient. There are NO changes in the patient's condition. Risks, benefits, and alternatives have been discussed and questions answered. Patient agrees to proceed with procedure.
[2024-08-31] MEDS: SIMETHICONE ORAL SUSPENSION 20 MG/0.3 ML 30 ML BOTTLE 0.6 ML IRRIGATION (11:17)
[2024-08-31 11:28] VITALS: BP 122/66; PULSE 68; RESP 20; O2SAT 100
[2024-08-31 11:38] VITALS: BP 150/78; PULSE 66; RESP 18; O2SAT 100
[2024-08-31 11:48] VITALS: BP 142/77; PULSE 70; RESP 18; O2SAT 100
== END 2024-08-31 11:54 | disposition home or self-care (01) ==
PROVIDERS: PCP Family Medicine; Visit Provider Internal Medicine Gastroenterology
PROC: 0DJ08ZZ Inspection of Upper Intestinal Tract, Via Natural or Artificial Opening Endoscopic (ICD-10-PCS; CPT 43450; principal; 2024-08-31 11:00)
DX: K21.00 Gastro-esophageal reflux disease with esophagitis, without bleeding (principal); K58.0 Irritable bowel syndrome with diarrhea; F32.A Depression, unspecified; Z98.890 Other specified postprocedural states; Z90.49 Acquired absence of other specified parts of digestive tract; Z90.2 Acquired absence of lung [part of]; Z85.118 Personal history of other malignant neoplasm of bronchus and lung; Z86.0100 Personal history of colon polyps, unspecified; Z82.49 Family history of ischemic heart disease and other diseases of the circulatory system
CPT/HCPCS: 43450; 43239; 88305; J2003; J2704; J7120

== ENCOUNTER 2025-03-10 15:03 | Outpatient (CLI) | payer MEDICARE, SELFPAY ==
--- OUTSIDE RECORDS SUMMARY | 2025-03-10 15:06 | XMS_ITS | Clinical Summary ---
Author Organization [facility] Address [address] [place] [address] Care Team Providers [employer] Name Role Phone Rm Ansari MD Primary Care Provider [phone] Valentino Martinez MD Unavailable [phone] Source Comments [facility],non-owned Affiliates and Associated Physician Practices is amultiple site organization consisting of ambulatory clinics and hospital sitesin [place], [place], [place] and [place]. This disclosure is being madepursuant to the Care Everywhere program and may not contain all information available regarding this patient. Last updated 18.[facility] Allergies No known active [...] 8:16 AM CDT Height 157.5 cm (5' 2) 02/14/2020 8:16 AM CDT Body Mass Index [...] 2004 ZOSTER VACCINE (1 of 2) 2004 DEPRESSION SCREENING 04/20/2024 MEDICARE AWV CALENDAR YEAR 2024 COVID-19 VACCINE (1 - 2024-2 6 season) 2024 INFLUENZA VACCINE (#1) 2024 Respiratory Syncytial Virus (RSV) Vaccine Pt: [...] this topic Medical Devices Implanted Type Area Tub Attendant Device Identifier Shelf Expiration Date Model / Serial / Lot Graft Bone Tenfuse Pip 10d Algrf 18x2.7 Implanted:Qty: 1 on 02/14/2020 by Hortencia Monte MD at [facility] Right: Foot [employer] 06/09/2021 [id number] / / [id number] Description:Ref [id number] 2.0 X 14mm Screw Implanted:Qty: 1 on 02/14/2020 by Hortencia Monte MD at [facility] Right: Foot [id number] / / 2.4 X 12mm Screw Implanted:Qty: 1 on 02/14/2020 by Hortencia Monte MD at [facility] Right: Foot [id number] / / Explanted Type Area Tub Attendant Device Identifier Shelf Expiration Date Model / Serial / Lot Wire K 1.1mm 150mm Troc Blnt Fx Explanted:Qty: 1 on 02/14/2020 by Hortencia Monte MD at [facility] Right: Foot [employer] [id number] / / 2.0 X 10mm Screw Explanted:Qty: 1 on 02/14/2020 at [facility] Right: Foot [id number] / / [id number] Insurance [facility] MANAGED MEDICARE ADV [place] [id number] [facility] MANAGED MEDICARE ADV SELF PAY NO INSURANCE Member Subscriber Plan / Payer (Ef fective for All Dates) Name:Jillian Jones Member ID:Not on file Relation to Subscriber:Not on file Name:JILLIAN JONES Subscriber ID:Not on file (Home) Address: [address] [place] [address] Payer ID:Not on file Group ID:Not on file Type:Self Pay Address: [place], [place] [employer] MANAGED MEDICARE ADV [place] [id number] [facility] * Guarantor: JILLIAN JONES Account Type Relation to Patient Date of Phone Billing Address Personal/Family [address] [place] [address] SELF PAY NO INSURANCE Member Subscriber Plan / Payer (Ef fective for All Dates) Name:Jillian Jones Fransico Member ID:Not on file Relation to Subscriber:Not on file Name:ROBERTJILLIAN Subscriber ID:Not on file Address: [address] [place] [address] Payer ID:Not on file Group ID:Not on file Type:Self Pay Address: [place], [place] [employer] MANAGED MEDICARE ADV * Guarantor: JILLIAN JONES Account Type Relation to Patient Date of Phone Billing Address Personal/Family [address] [place] [address] SELF PAY NO INSURANCE Member Subscriber Plan / Payer (Ef fective for All Dates) Name:Jillian Jones Member ID:Not on file Relation to Subscriber:Not on file Name:JILLIAN JONES Subscriber ID:Not on file Address: [place] [address] Payer ID:Not on file Group ID:Not on file Type:Self Pay Address: [place], [place] [employer] MANAGED MEDICARE ADV * Guarantor: JILLIAN JONES Type Relation to Patient Date of Phone Billing Address Personal/Family [address] [place] [address] SELF PAY NO INSURANCE Member Subscriber Plan / Payer (Ef fective for All Dates) Name:Jillian Jones Member ID:Not on file Relation to Subscriber:Not on file Name:JILLIAN JONES Subscriber ID:Not on file Address: [address] [place] [address] Payer ID:Not on file Group ID:Not on file Type:Self Pay Address: [place], [place] [employer] MANAGED MEDICARE ADV Care [employer] Relationship Specialty Start Date End Date Rm Ansari MD PCP - General 02/27/20 Valention Martinez MD [address] [place] [id number] Family Medicine 02/27/20
--- OUTSIDE RECORDS SUMMARY | 2025-03-10 15:06 | XMS_ITS | Data Portability ---
Author Organization [facility] Address [address] [place] [address] Care Team Providers Care Cartographic Designer Name Role Phone LAKIA WONG Primary Care [...] [email or web address] Dane Chun MD, [address], [place], [address], 0 18:45:15 Imaging US, pelvis 2019 020 cat [place], [address], [address], [place], [address], 0 14:30:52 US, transvagina l 2019 020 RACHELLE [place], [address], [address], [place], [address], 0 05:00:43 Medication Orders None recorded. Patient [...] ts, LLC, d/b/a Joe gould, [address], [place] [address] , Brain Mccabe ra, DO, Labor atory [...] paola resul ts of [place] or [place] are deter mined by calcu latin [...] e namita cteri stics deter mined by [employer], [employer] d/b/a Joe gould. It has not been clear ed or appro ricardo by the U.S. Food and Drug Admin istra tion. The FDA has deter mined that such clear ance or appro mani is not neces monica. Perti nent refer ence inter vals are avail able from the labor atory on reque st. Test( s) perfo rmed by [employer] [employer], [employer], d/b/a Joe gould, [address], [place] [address] , Brain Mccabe ra, DO, Labor atory Direc tor. Not Available [facility] ([facility]) [address], [place], [address], 08/12/2019 13:06:33 08/10/19 20 08/11/2019 bacte rial [...] rmed by Assoc iated Patho logis ts, [facility], d/b/a [facility], [address], [place] [address] , Brain Mccabe ra, DO, Labor atory [...] paola resul ts of [place] or [place] are deter mined by calcu latin [...] e namita cteri stics deter mined by [employer], [employer] d/b/a Path rou. It has not been clear ed or appro ricardo by the U.S. Food and Drug Admin istra tion. The FDA has deter mined that such clear ance or appro mani is not neces monica. Perti nent refer ence inter vals are avail able from the labor atory on reque st. Test( s) perfo rmed by [employer] ts, LLC, d/b/a Path rou, [address], [place] [address] , Brain Mccabe ra, DO, Labor atory Direc tor. Not Available [facility] ([facility]) [address], [place], [address], 08/12/2019 13:06:33 08/10/19 20 08/11/2019 bacte rial [...] iated Patho logis ts, LLC, d/b/a PathG rou, [address], [place] [address] , Brain Mccabe ra, DO, Labor atory [...] paola resul ts of [place] or [place] are deter mined by calcu latin [...] e namita cteri stics deter mined by [employer] [facility] logis ts, LLC d/b/a PathMyrna gould. It has not been clear ed or appro ricardo by the U.S. Food and Drug Admin istra tion. The FDA has deter mined that such clear ance or appro mani is not neces monica. Perti nent refer ence inter vals are avail able from the labor atory on reque st. Test( s) perfo rmed by [employer] Patho logis [employer], d/b/a PathMyrna gould, [address], [place] [address] , Brain Mccabe ra, DO, Labor atory Direc tor. Not Available [facility]) [address] [facility] [address], [place], [address], 08/12/2019 13:06:33 09/14/19 20 09/16/2019 surgi arelis [...] nce of malig beatrice or hyper plasi aKevan pantoja MD elect tanya hernandez 09/15 02:52 PM Gross Descr iptio n: [...] Techn ical servi juancho provi ded by [employer]hy [employer] Patho logis [employer], d/b/a PathG rou, [address] [place] [address] Lukasz Gutierrez MD, Labor surespot Dire tor. Case revie wed and diagn osis [facility] red [facility] logis [employer], d/b/a PathG rou, [address], [place] [address] Emilia pantoja MD, Labor surespot [facility] tor. CONFI DENTI AL Not Available [facility] ([facility]) [address], [place], [address], 09/16/2019 15:53:32 05/17/19 21 05/17/2020 , lisa simmons md interpretati on Not Available Raquel worley [address], [place], [address], 08/19/2019 11:59:43 07/26/19 21 07/25/2020 pap, IG Pap test SEE RESULT S BELOW CASE REPOR T: Cytol ogy Gynec ologi arelis Repor t Case: [id number] Autho phyllis brownlee Provi wang: Pam Stevens, ROLANDA Colle cted: 07/25 1609 Order ing Locat [...] as clini jake gutierrez nted. Not Available [facility] (Lab) [address], [place], [address], 07/26/2020 18:36:48 08/19/19 20 US, pelvi s No observ ation record ed. [email or web address] [address], [place], [address], 08/23/2019 10:20:47 Result Notes None recorded. Problems Name Problem SNOMED Code Status Onset Date Resolution Date Notes Provider Name and Address Organization Details Recorded Time Increase d frequenc y of urinatio n 165553830 Completed 201007/25/2020 Urinary frequenc y;Practi ce ID: 0001 Lindy fam [facility] 14:34:26 Urinary tract infectio us disease 53330086 Completed 201107/25/2020 Urinary tract infectio n, site not specifie d;Record ed Elsewher e: No Locat ion: [facility] S ource: EHR Director Of Business Continuity jessica: N Pracalexa ce ID: 0001 Juan David lable Time: 11:30:00 AM Lindy fam [facility] 14:34:45 Screenin g for malignan t neoplasm of cervix Completed 201107/25/2020 Screenin g for malignan t neoplasm s of the cervix;R ecorded Elsewher e: No [facility]at [facility] our[facility]: EHR Director Of Business Continuity jessica: N Practi ce ID: 0001 Juan David lable Time: 11:30:00 AM Lindy fam, [facility] 14:34:35 Dyspareu kike [id number] Completed 201107/25/2020 Dyspareu kike;Beny rded Elsewher e: No Locat ion: Raquel reuben [facility] S ource: EHR Director Of Business Continuity jessica: N Practi ce ID: 0001 Juan David lable Time: 11:30:00 AM Lindy Thompson cristel, [facility] 14:34:22 Microsco pic hematuri a [id number] Completed 201207/25/2020 MICROSCO PIC HEMATURI A;Record ed Elsewher e: No Locat ion: [facility] S ource: EHR [facility] jessica: N Tamrati ce ID: 0001 Juan David lable Time: 08:30:00 AM Lindy fam, [facility] 14:34:30 Carbuncl e of buttock Completed 201207/25/2020 Carbuncl e and furuncle of buttock; Recorded Elsewher e: No Locat ion: [facility] S ource: [facility] jessica: N Tamrati ce ID: 0001 Juan David lable Time: 08:30:00 AM Lindy fam, [facility] 14:34:18 Obesity 059819178 Completed 201407/25/2020 Obesity; Recorded Elsewher e: No Locat ion: [facility] S ource: EHR [facility] jessica: N Practi ce ID: 0001 Juan David lable Time: 08:30:00 AM Lindy Thompson null, [facility] 14:34:32 Speciali zed medical examinat ion Completed 201407/25/2020 ROUTINE PROPELLER INSPECTOR EXAMINAT ION;Beny rded Elsewher e: No [facility] S ource: EHR Director Of Business Continuity jessica: N Tamrati ce ID: 0001 Juan David lable Time: 08:30:00 AM Lindy Thompson cristel, [facility] 14:34:43 Malaise and fatigue [id number] Completed 201407/25/2020 Fatigue / Malaise; Recorded Elsewher e: No Locat ion: [facility] S ource: [facility] jessica: N Tamrati ce ID: 0001 Juan David lable Time: 08:30:00 AM Lindy Thompson cristle, [facility] 14:34:[address] Concept Completed 201607/25/2020 Encntr for it business systems analyst exam (general ) (routine ) w/o abn findings ;Recorde d Elsewher e: No Locat ion: [facility] S ource: [facility] jessica: N Tamrati ce ID: 0001 Juan David lable Time: 08:15:00 AM Lindy Thompson [facility], [facility] 14:34:41 Screenin g for malignan t neoplasm of rectum Completed 201607/25/2020 Encounte r for screenin g for malignan t neoplasm of rectum;R ecorded Elsewher e: No Locat ion: [facility] S ource: [facility] jessica: N Tamrati ce ID: 0001 Juan David lable Time: 08:15:00 AM Lindy Thompson cristel, [facility] 14:34:38 Evaluati on finding Completed 201607/25/2020 Hematuri a, unspecif ied;Beny rded Elsewher e: No Locat ion: [facility] S ource: [facility] jessica: N Tamrati ce ID: 0001 Juan David lable Time: 08:15:00 AM Lindy Thompson cristel [facility] 14:34:[address] Concept Completed 201707/25/2020 Encntr for general adult medical exam w/o abnormal findings ;Recorde d Elsewher e: No Locat ion: Daniel alexis [facility] S ource: EHR Director Of Business Continuity jessica: N Tamrati ce ID: 0001 Juan David lable Time: 11:00:00 AM Lindy fam [facility] 14:34:39 Atrophic vaginiti s [id number] Completed 201807/25/2020 Postmeno pausal atrophic vaginiti s;Record ed Elsewher e: No Locat ion: Daniel alexis [facility] S ource: EHR Director Of Business Continuity jessica: N Practi ce ID: 0001 Juan David lable Time: 11:00:00 AM Lindy fam [facility] 14:34:15 Micturit ion finding Completed 201807/25/2020 Urinary incontin ence;Rec orded Elsewher e: No Locat ion: Daniel alexis [facility] S ource: EHR Director Of Business Continuity jessica: N Practi ce ID: 0001 Juan David lable Time: 11:00:00 AM Lindy fam [facility] 14:34:20 Problem Notes None recorded. Procedures Surgical History Date Name Laterality Status Provider Name and Address Organization Details Recorded Time 021 Date of Last Pap Smear completed Lindy Thompson [facility] 07/25/2020 14:34:50 021 hernia repair completed Lindy Thompson [facility] 07/25/2020 14:36:23 020 Hysteroscopy completed Pam Pablo CNM [address], [place], [address], [facility] 09/14/2019 13:03:10 020 Hysteroscopy biopsy completed Lindy Thompson [facility] 09/15/2019 13:05:38 019 Carpal tunnel surgery completed [facility] 08/22/2019 18:44:35 018 radical bunionectomy completed [facility] 07/25/2020 09:06:14 009 cholecystectomy completed [facility] 08/19/2019 12:10:16 Imaging Results None recorded. Procedure Notes None recorded. Medical Equipment None [...] Prescrib ed Elsewher e: Yes Loca tion: [facility] M odify By: nae le DateTime : 10/20/19 08:30:00 AM Not Available Not Available Not [...] Prescrib ed Elsewher e: No Locat ion: Raquel reuben [facility] odify By: cecilanjelica Alexis evon DateTime : 03/04/20 13 08:30:00 AM Not [...] Prescrib ed Elsewher e: Yes [facility] odify By: nae Pang r DateTime : 10/20/19 15 08:30:00 AM Not Available Not Available Not Available cephalexi n 500 mg capsule 08/18 completed Not Available Not Available Not Available Effexor 75 mg tablet take 1 tablet (75MG) by oral route 2 times every day with food 07/03 completed Prescrib ed Elsewher e: No Locat ion: Daniel alexis [facility] odify By: kaitlynn deal DateTime : [...] mcg (50,000 unit) capsule take 1 capsule ([id number] ITS) by oral route every week 10/19 completed Prescrib ed Elsewher e: No [facility] By: nae Pang r DateTime : 03/28/20 13 12:07:08 PM Not Available Not Available Not Available [facility] 4 mg oral granules in packet 07/25 completed Prescrib ed Elsewher e: Yes Loca tion: Daniel alexis [facility] M odify By: nae le DateTime : 10/20/19 08:30:00 AM Not Available Not Available Not [...] Body mass index (BMI) Body weight Systolic And Diastolic Provider Name and Address Organization Details Last Updated DateTime 07/25/2020 156.21 cm 34 kg/m2 34305.4 g 123/82 mm[Hg] [facility] 07/25/2020 14:33:01 Date Recorded Body height Body mass index (BMI) Body weight Systolic And Diastolic Provider Name and Address Organization Details Last Updated DateTime 08/19/2019 156.21 cm 35.9 kg/m2 37521.33 g 126/86 mm[Hg] Lindy [facility] 08/19/2019 12:19:37 Date Recorded Body height Body mass index (BMI) Body weight Systolic And Diastolic Provider Name and Address Organization Details Last Updated DateTime 09/14/2019 156.21 cm 35.9 kg/m2 64296.33 g 111/75 mm[Hg] Lindy [facility] 09/14/2019 12:34:52 Date Recorded Body height Body mass index (BMI) Body weight Systolic And Diastolic Provider Name and Address Organization Details Last Updated DateTime 09/21/2019 156.21 cm 35.9 kg/m2 32349.33 g 164/94 mm[Hg] Lindy Thompson [facility] 09/21/2019 12:13:19 Social History Question Answer Notes LastModified by Organizat ion Details LastModified Time Tobacco Smoking Status Never Smoker Lindy Thompson [facility], [facility] 08/19/2019 12:17:10 Are You Blind Or Do You Have Difficulty Seeing? No [email or web address] Information n ot available 07/25/2020 What Is Your Level Of Caffeine Consumption? Moderate [email or web address] Information not available 07/25/2020 In The 14 Days Before Symptom Onset, Have You Had Close Contact With A Laboratory-confirm ed COVID-19 While That Case Was Ill? No [email or web address] Information n ot available 07/25/2020 In The 14 Days Before Symptom Onset, Have You Had Close Contact With A Person Who Is Under Investigation For COVID-19 While That Person Was Ill? No [email or web address] Information not available 07/25/2020 Have You Been To An Area Known To Be High Risk For COVID-19? No [email or web address] Information not available 07/25/2020 Are You Deaf Or Do You Have Serious Difficulty Hearing? No [email or web address] Information not available 07/25/2020 What Type Of Diet Are You Following? REGULAR [email or web address] Information n ot available 07/25/2020 What Was The Date Of Your Most Recent Tobacco Screening? 07/25/2020 [email or web address] Information not available 07/25/2020 Have You Ever Been Counseled For Unhealthy Alcohol Use? No [email or web address] Information not available 07/25/2020 Do You Use Your Seat Belt Or Car Seat Routinely? Yes [email or web address] Information not available 07/25/2020 Do You Have Smoke And Carbon Monoxide Detectors In Your Home? Yes [email or web address] Information not available 07/25/2020 How Much Tobacco Do You Smoke? No [email or web address] Information not available 09/14/2019 Do You Use Sunscreen Routinely? Yes [email or web address] Information not available 07/25/2020 Has Tobacco Cessation Counseling Been Provided? No [email or web address] Information not available 07/25/2020 Sex: Unknown Functional Status Question Answer Note LastModified by Organizat ion Details LastModified Time Do you use any illicit or recreational drugs? No [email or web address] Information not available 07/25/2020 Do you or have you ever used any other forms of tobacco or nicotine? No [email or web address] Information not available 07/25/2020 What is your level of alcohol consumption? Occasional [email or web address] Information not available 08/19/2019 Do you or have you ever used smokeless tobacco? Never used smokeless tobacco [email or web address] Information not available 09/14/2019 Are you able to walk independently without assistance or assistive devices? YESWOREST [email or web address] Information not available 07/25/2020 Do you or have you ever used e-cigarettes or vape? Never used electronic cigarettes Information not available 09/14/2019 What is your exercise level? Occasional [email or web address] Information not available 07/25/2020 Mental Status Question Answer Note LastModified by Organization D etails LastModified Time Do you feel stressed (tense, restless, nervous, or anxious, or unable to sleep at night)? [id number] [email or web address] Information not available 07/25/2020 Family History Nothing [...] Diagnosis SNOMED-CT Code Diagnosis ICD10 Code Diagnosis IMO Codes Diagnosis Note 1584 Pam Pablo CNM [place] [address] [place] [address] 08/10/2019 10:08:16 08/10/2019 10:55:25 Postmenopausal bleeding 86069254 N95.0 2762 Pam Pablo CNM [place] [address] [address] 08/19/2019 11:28:49 08/19/2019 14:56:25 Postmenopausal bleeding 43124604 N95.0 f/u US today 2763 Dane Chun MD [place] [address] [address] 08/19/2019 11:31:14 08/19/2019 14:30:48 Postmenopausal bleeding 35221550 N95.0 5500 [facility] [address],[place] [address] 09/14/2019 12:17:10 09/14/2019 13:49:53 Postmenopausal bleeding 72525179 N95.0 f/u today 5501 Dane Chun MD [place] [address],[place] [address] 09/14/2019 12:18:10 10/02/2019 15:38:24 6397 Pam Pablo CNM [place] [address],[place] [address] 09/21/2019 11:57:33 10/12/2019 09:39:32 Postoperative visit [id number] Z09 77822 Pam Pablo [facility] [address] [address] 07/25/2020 14:13:55 07/25/2020 15:54:08 Gynecologic examination 02580961 Z01.419 Health Concerns Section Related Observation LastModified by Organization Detai ls LastModified Time None Recorded Concern Status LastModified by Organization Details LastModified Time None Recorded Advance Directives Directive None Recorded Payers Insurance Date Sequence Insurance Name Policy Number Policy Hodge Covered Member ID Hodge Member ID Guarantor Name 07/25/2020 1 MIKLILIAN [id number] Jillian Jones [id number] Jillian Jones 07/25/2020 1 [facility] (MEDICARE REPLACEMENT/A DVANTAGE - HMO) [id number] Jillian Jones [id number] Jillian Jones Notes Date Note Type Note Provider Name and Address Organization Details Recorded Time 0 text/html ROS as noted in the HPI pt had post menopausal bleeding, vaginal cultures negative, ultrasound today reviewed with Dr. Chun suspect uterine polyp Pam Pablo CNM [address], [place], [address], [facility] 08/24/2019 09:20:27 0 text/html ROS as noted in the [facility] pt here for hysteroscopy/polypecto my for postmenopausal bleeding consents signed prior, at visit with pt Pam Pablo CNM [address], [place], [address], [facility] 09/14/2019 13:04:06 0 text/html ROS as noted in the HPI s/p hysteroscopy/polypecto my for pmb, doing well, some small pink and clear d/c very little, no complaints, pathology negative for hyperplasia Pam Pablo CNM [address], [place], [address], [facility] 09/21/2019 13:33:59 1 text/html Annual GYNReported by PatientBreast symptomsFor breast, patient reportsno breast pain,no breast lump, andno nipple discharge.Endocrine symptomsFor sexual complaints, patient reportsno sexual complaints,no pain during intercourse, andnormal libido. For menopausal symptoms, patient reportsno menopausal symptomsandnormal vaginal lubrication.Psychologi arelis symptomsFor psychological symptoms, patient reportsno depression,no anxiety, andno pmdd.does sbe, mammogram done and wnl, osteoporosis and primary dr treating, just had hernia surgery couple weeks agoROS as noted in the [facility] Pam Pablo CNM [address], [place], [address], [facility] 07/25/2020 15:45:33 OBGyn Episode Ob Episode Information Episode Created Date Number of Fetuses Patient Bloodtype Patient rh Status Prepregnancy Weight lbs Domestic Partner Domestic Partner Phone Father Name Mold Mover Status 08/19/19 20 1 CLOSED Fetus Data [...] Domestic Partner Domestic Partner Phone Father Name Mold Mover Status 08/19/19 20 1 CLOSED Fetus Data [...]
--- OUTSIDE RECORDS SUMMARY | 2025-03-10 15:06 | XMS_ITS | Clinical Summary ---
Author Organization [facility] [address] Address [address] [place] [address] Care Team Providers Care Production Metal Sprayer Name Role Phone Valentino Martinez MD Primary Care Provider Jessee Montoya MD PhD Unavailable Hai Marley MD Unavailable Allergies No known active allergies Medications venlafaxine XR (EFFEXOR-XR) 150 mg 24 hr capsule take 1 capsule by oral route every day 0 0 6 Active ondansetron ODT (ZOFRAN-ODT) 4 mg disintegrating tablet Take 1 tablet (4 mg total) by mouth every 8 (eight) hours as needed for nausea or vomiting 20 tablet 3 5 Active alendronate (FOSAMAX) 70 mg tablet TAKE 1 TABLET BY MOUTH WEEKLY FOR 90 DAYS 5 Active osimertinib (Tagrisso) 80 mg tablet TAKE ONE TABLET BY MOUTH ONCE DAILY 30 tablet 3 5 Active loperamide (Imodium A-D) 2 mg capsule 5 Active Active Problems Patient Care Coordination [...] (01/21/2019): Added automatically from request for surgery [id number] Imbalance 12/28/2018 Assessment & Plan (12/28/2018 9:09 AM CDT): Discussed balance activities such as yoga. No evidence of inner ear pathology such as BPPV today. Ear itching 12/28/2018 Assessment & Plan (12/28/2018 9:10 AM CDT): 50/50 alcohol and vinegar mix as needed. Keep ears dry. Tinnitus, bilateral 12/07/2018 Arthritis 11/03/2018 Overview (11/03/2018): Added automatically from request for surgery [id number] Diverticulosis of colon 01/20/2018 Hiatal hernia 01/20/2018 Polyp of colon 01/20/2018 History of colon polyps 12/09/2017 Overview (12/09/2017): Added automatically from request for surgery [id number] Gastroesophageal reflux disease 12/09/2017 Overview (12/09/2017): Added automatically from request for surgery [id number] Chest pain 11/23/2017 Assessment & Plan (11/23/2017 [...] Encounters Date Type Department Care Team Description 02/07/2025 10:30 AM CDT Office Visit [facility] [address] [place] [address] [address] [place] [address] Jessee Montoya MD PhD Malignant neoplasm of upper lobe of right lung (HCC) (Primary Dx) 02/07/2025 10:00 AM CDT Lab [facility] at [address] [address] Malignant neoplasm of upper lobe of right lung (HCC) 01/31/2025 9:59 AM CDT - 01/31/2025 11:59 PM CDT Hospital Encounter [facility] Medical Office Building [address] [place] [address] Malignant neoplasm of upper lobe of right lung (HCC) Discharge Disposition: Discharge to home or self care 01/20/2025 9:00 AM CDT Telemedicine [facility] Medical Office Building 2 Radiation Oncology [address] [place] [id number] Cancer of upper lobe of right lung (HCC) (Primary Dx); Chronic fatigue 12/24/2024 Orders Only [facility] [address] [place] [address] [place] [address] [phone] Jessee Montoya MD PhD 12/21/2024 Orders Only [facility] [address] [place] [address] [phone] Meeta Prakash, DAY from Last 3 Months Immunizations Immunization Administration [...] oz pur e alcohol) 1x/month with dinner [facility] Utilities Answer Date Recorded In the past 12 months has th e electric, gas, oil, or water company threatened to shut off services in your home? No 02/04/2024 Social Connection and Isolation Panel Answer Date Recorded In a typical week, how many times do you talk on the phone with family, friends, or neighbors? More than three times a week 02/04/2024 How often do you get togethe r with friends or relatives? More than three times a week 02/04/2024 How often do you attend chur ch or islam services? Never 02/04/2024 Do you belong to any clubs o r organizations such as jewish groups, unions, fraternal or athletic groups, or school groups? No 02/04/2024 How often do you attend meet ings of the clubs or organizations you belong to? Never 02/04/2024 Are you , , di vorced, , never , or living with a partner? 02/04/2024 AUDIT-C Answer Date Recorded Q1: How often do you have a drink containing alcohol? Never 11/08/2024 Q2: How many drinks containi ng alcohol do you have on a typical day when you are drinking? Patient does not drink Q3: How often do you have si x or more drinks on one occasion? Never 11/08/2024 Overall Financial Resource Strain (CARDIA) Answe r [...] any time in the past 12 m [facility], were you homeless or living in a residential (including now)? No 02/04/2024 Personal Safety Answer Date Recorded Have you ever been in or are you currently in a harmful physical or emotional relationship or is someone making you feel afraid or unsafe? 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 Sexual Orientation Straight 11/22/2018 7: 26 PM CDT Last Filed Vital Signs Vital Sign Reading Time Taken Comments Blood Pressure 135/79 02/07/2025 9:52 AM CDT Pulse 82 02/07/2025 9:52 AM CDT Temperature 36.7 C (98.1 F) 02/07/2025 9:52 AM CDT Respiratory Rate 18 02/07/2025 9:52 AM CDT Oxygen Saturation 98% 02/07/2025 9:52 AM CDT Inhaled Oxygen Concentration - - Weight 67.6 kg (149 lb 0.5 oz) 02/07/2025 9:52 A M CDT Height 158 cm (5' 2.21) 02/07/2025 9:52 AM CDT Body Mass Index 27.08 02/07/2025 9:52 AM CDT Plan of Treatment Health Maintenance [...] - Tdap) 08/30/2023 4 Influenza Vaccine (#1) 2024 1, 03/01/2020, 03/06/2015 Fall Risk Assessment 02/05/2025 02/06/2024, 12/24/19 24 Colon Cancer Screening-Colonoscopy 12/16/2027 12/15/2017, 06/27/2015 Colon Cancer Screening-CT Colonography Discontinued 12/15/2017, 06/27/2015 Colon Cancer Screening-DNA Stool Discontinued 12/16/19 18, 06/27/2015 Colon Cancer Screening-FIT Discontinued 12/15/2017, Colon Cancer Screening-Sigmoidoscopy Discontinued 12/15/2017, 06/27/2015 Medical Devices Implanted Type Area Polisher Apprentice Device Identifier Shelf Expiration Date Model / Serial / Lot Synthes 201.364.97 2mm 14mm Self Tap Self Retain Stardrive Cortex T6 Screw Bone - [id number] Implanted:Qty: 2 on 10/27/2017 by Hortencia Monte DPM at [facility] Right: First Toe Synthes I [id number] / / Synthes 201.366.97 2mm 16mm Self Tap Self Retain Stardrive Cortex T6 Screw Bone - [id number] Implanted:Qty: 1 on 10/27/2017 by Hortencia Monte DPM at [facility] Right: First Toe Synthes I 201.366.97 / / [employer] At2-C26-S Acutrak 2 2.5-2.8mm 26mm Headless Self Cut Cannulated Variable - [id number] Implanted:Qty: 1 on 11/09/2018 by Gustavo Lacy MD at [facility] [employer] AT2-C26-S / / [employer] At2-C26-S Acutrak 2 2.5-2.8mm 26mm Headless Self Cut Cannulated Variable - [id number] Implanted:Qty: 1 on 02/01/2019 by Gustavo Lacy MD at [facility] Right: Index Finger [employer] [id number] 01/26/2025 AT2-C26-S / / [id number] Procedures Procedure Name Priority Date/Time Associated Diagnosis Comments EGFR Routine 02/07/2025 9:47 AM CDT Malignant neoplasm of upper lobe of right lung (HCC) DIFFERENTIAL AUTO Routine 02/07/2025 9:4 7 AM CDT Malignant neoplasm of upper lobe of right lung (HCC) CBC WITH AUTO DIFFERENTIAL Routine 02/07/2025 9:47 AM CDT Malignant neoplasm of upper lobe of right lung (HCC) COMPREHENSIVE METABOLIC PANEL Routine 02/07/2025 9:47 AM CDT Malignant neoplasm of upper lobe of right lung (HCC) CT CHEST ABDOMEN W CONTRAST Schedule Routine, Read Routine (OP Routine) 01/31/2025 10:24 AM CDT Malignant neoplasm of upper lobe of right lung (HCC) POCT CREATININE FOR CONTRAST EVALUATION Routine 01/31/2025 10:22 AM CDT COLONOSCOPY 12/15/2017 8:46 AM CDT SCREENING MAMMOGRAM BILATERAL W MIKI Schedule Routine, Read Routine (OP Routine) 12/07/2017 12:52 PM CDT Encounter for screening mammogram for malignant neoplasm of breast from Last 3 Months or Most Recently Relevant to Health Maintenance Results * eGFR (02/07/2025 9:47 AM CDT) eGFR 61 >=60 mL/min/1. 73 m2 [...] of Race in Diagnosing Kidney Disease, JASN 202). The CKD-EPI equation should not be used for patients with unstable renal function and has not been validated in children and those over 70. Current interpretive data was last reviewed 2021. Testing performed by: [address] [address] Blood 02/07/2025 9:47 AM CDT 02/07/2025 9:49 AM CDT us Jessee Montoya MD PhD LAB BLOOD ORDERABLES Final Result [facility] Department [place] [address] * Differential, auto (02/07/2025 9:47 AM CDT) Neutrophil abs 2.80 1.50 - 6.50 K/cumm Comment:Testing performed by : [address] [address] Imm gran abs 0.01 0.00 - 0.10 K/cumm [facility] Comment:Testing performed by : [address] [address] Lymphocyte abs 1.44 0.80 - 3.30 K/cumm [facility] Comment:Testing performed by : [address] [address] Monocyte abs 0.46 0.20 - 0.80 K/cumm [facility] Comment:Testing performed by : [address] [address] Eosinophil abs 0.04 0.00 - 0.50 K/cumm [facility] Comment:Testing performed by : [address] [address] Basophil abs 0.02 0.00 - 0.10 K/cumm [facility] Comment:Testing performed by : [address] [address] Neutrophil pct 58.8 % [facility] Comment: Interpretive Data Percent cell count reference ranges are not reported, since discordance with absolute values may lead to misinterpretation of CBC data. Current Interpretive Data was last revised on 2017. Testing performed by: [address] [address] Imm gran pct 0.2 % [facility] Comment: Interpretive Data Percent cell count reference ranges are not reported, since discordance with absolute values may lead to misinterpretation of CBC data. Current Interpretive Data was last revised on 2017. Testing performed by: [address] [address] Lymphocyte pct 30.2 % [facility] Comment: Interpretive Data Percent cell count reference ranges are not reported, since discordance with absolute values may lead to misinterpretation of CBC data. Current Interpretive Data was last revised on 2017. Testing performed by: [address] [address] Monocyte pct 9.6 % [facility] Comment: Interpretive Data Percent cell count reference ranges are not reported, since discordance with absolute values may lead to misinterpretation of CBC data. Current Interpretive Data was last revised on 2017. Testing performed by: [address] [address] Eosinophil pct 0.8 % [facility] Comment: Interpretive Data Percent cell count reference ranges are not reported, since discordance with absolute values may lead to misinterpretation of CBC data. Current Interpretive Data was last revised on 2017. Testing performed by: [address] [address] Basophil pct 0.4 % [facility] Comment: Interpretive Data Percent cell count reference ranges are not reported, since discordance with absolute values may lead to misinterpretation of CBC data. Current Interpretive Data was last revised on 2017. Testing performed by: [address] [address] Blood 02/07/2025 9:47 AM CDT 02/07/2025 9:49 AM CDT Jessee Montoya MD PhD LAB BLOOD ORDERABLES Final Result [facility] [address] [facility] Department [place] [address] * (ABNORMAL) CBC with auto differential (02/07/2025 9:47 AM CDT) WBC 4.77 3.80 - 9.90 K/cumm Comment:Testing performed by : [address] [address] Hgb 11.7(L) 11.9 - 15.5 g/dL [facility] Comment:Testing performed by : [address] [address] Hct 35.7 35.6 - 45.5 % [facility] Comment:Testing performed by : [address] [address] Plt 259 150 - 400 K/cumm [facility] Comment:Testing performed by : [address] [address] MPV 8.5(L) 9.1 - 12.3 fL [facility] Comment:Testing performed by : [address] [address] RBC 3.80(L) 3.90 - 5.20 M/cumm [facility] Comment:Testing performed by : [address] [address] MCV 93.9 81.3 - 96.4 fL [facility] Comment:Testing performed by : [address] [address] MCH 30.8 27.1 - 33.3 pg [facility] Comment:Testing performed by : [address] [address] MCHC 32.8 32.3 - 35.7 g/dL [facility] Comment:Testing performed by : [address] [address] RDW CV 13.4 11.1 - 14.9 % [facility] Comment:Testing performed by : [address] [address] RDW SD 46.4 35.7 - 48.1 fL [facility] Comment:Testing performed by : [address] [address] NRBC abs 0.00 0.00 - 0.01 K/cumm [facility] Comment:Testing performed by : [address], [place]., [address] ANC Prelim 2.80 1.50 - 6.50 K/cumm [facility] Comment: Interpretive Data The rapid ANC is a preliminary automated count and may vary from the final ANC (Neut Abs) reported in the WBC differential that follows. Current interpretive data was last revised 2024. Testing performed by: [address] [address] Blood 02/07/2025 9:47 AM CDT 02/07/2025 9:49 AM CDT us Jessee Montoya MD PhD LAB BLOOD ORDERABLES Final Result [facility] [address] [facility] Department [place] [address] * Comprehensive metabolic panel (02/07/2025 9:47 AM CDT) Sodium 142 135 - 145 mmol/L Comment:Testing performed by : [address] [address] Potassium, pl 4.2 3.3 - 4.9 mmol/L [facility] CORRALES Comment:Testing performed by : [address] [address] Chloride 105 97 - 110 mmol/L [facility] Comment:Testing performed by : [address] [address] CO2 25 22 - 32 mmol/L [facility] Comment:Testing performed by : [address] [address] Anion gap 12 2 - 15 mmol/L [facility] Comment:Testing performed by : [address] [address] BUN 16 6 - 25 mg/dL [facility] Comment:Testing performed by : [address] [address] Creatinine 1.00 0.60 - 1.10 mg/dL [facility] Comment:Testing performed by : [address] [address] Glucose 118 70 - 199 mg/dL [facility] Comment: Interpretive [...] was last revised 2022. Testing performed by: [address] [address] Calcium 8.9 8.5 - 10.3 mg/dL [facility] Comment:Testing performed by : [address] [address] Bilirubin, total 0.3 0.1 - 1.2 mg/dL [facility] Comment:Testing performed by : [address] [address] Protein, pl 6.9 6.5 - 8.5 g/dL [facility] Comment:Testing performed by : [address] [address] Albumin 4.0 3.5 - 5.0 g/dL [facility] Comment:Testing performed by : [address] [address] Alk phos 92 40 - 130 Units/L [facility] Comment:Testing performed by : [address] [address] ALT 19 7 - 45 Units/L [facility] Comment:Testing performed by : [address] [address] AST 25 10 - 45 Units/L [facility] Comment:Testing performed by : [address], [place]., [address] Blood 02/07/2025 9:47 AM CDT 02/07/2025 9:49 AM CDT us Jessee Montoya MD PhD LAB BLOOD ORDERABLES Final Result [facility] [address] [facility] Department [place] [address] * CT Chest Abdomen W Contrast (01/31/2025 10:24 AM CDT) Anatomical Region Laterality Modality Body N/A Computed Tomogra phy 02/01/2025 8:50 AM CDT Narrative 02/01/2025 9:58 AM CDT EXAM DESCRIPTION: CT CHEST ABDOMEN W CONTRAST REASON FOR STUDY: Restaging of lung cancer 3 month lung cancer f/u. No complaints. Hx of hernia repair, dacia, lobectomy, tubal ligation. 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 TECHNIQUE: CT scan of the chest and abdomen performed with intravenous and without oral contrast using helical scanning technique with dynamic intravenous contrast injection. Reconstructed coronal and sagittal MPR images reviewed. All images stored on PACS. Automated exposure control was used as a dose optimization technique for this examination CONTRAST TYPE/DOSE: 100mL of IOVERSOL 350 MG IODINE/ML INTRAVENOUS SYRINGE was injected via the intravenous COMPARISON: 10/29/2023, 01/21/2024, 04/19/2024, 08/02/2024, 11/02/2024 REFERENCE: Per ACR white paper recommendations, unless otherwise specified no follow-up imaging is recommended for incidental renal and adrenal lesions per consensus recommendations based on imaging criteria. Further lab evaluation could be pursued based on clinical findings. FINDINGS: CHEST HARDWARE/LINES/TUBES: None. VASCULATURE: No thoracic aortic aneurysm. MEDIASTINUM/HEART: Heart size within normal limits. No significant pericardial effusion. Esophagus is unremarkable. CORONARY ARTERY CALCIFICATION: No significant coronary atherosclerotic calcifications. LYMPH NODES: No pathologically enlarged thoracic lymphadenopathy. AIRWAY: Central airways are patent. LUNGS: Status post right upper lobectomy. No enlarging soft tissue along the surgical bed to suggest local recurrence. No focal consolidation, pneumothorax, or pleural effusion. Nodular dependent atelectasis. New 3 mm subpleural nodule in the lateral left upper lobe (3; 49). BONES/SOFT TISSUES: Multilevel degenerative changes of the visualized cervicothoracic spine. No aggressive appearing osseous lesions. No acute osseous abnormality. Normal-appearing thyroid. ABDOMEN/PELVIS LIVER: Unchanged segment 1 cyst. No concerning lesions. GALLBLADDER/BILE DUCTS: Unchanged mild biliary ductal prominence, likely physiologic in the setting of cholecystectomy. SPLEEN: Unchanged subcentimeter hypodensity within the medial spleen unchanged over multiple prior examinations and likely benign (2; 85). PANCREAS: No significant ductal dilatation or discrete lesion. ADRENALS: No measurable nodule. KIDNEYS/URETERS: Tiny subcentimeter hypodensities too small to further characterize. No hydronephrosis. GASTROINTESTINAL: A few colonic diverticuli without acute inflammation. Postsurgical changes status post fundoplication. No evidence of bowel obstruction. LYMPH NODES: No pathologically enlarged abdominal or pelvic lymphadenopathy. PERITONEUM/RETROPERITONEUM: No ascites or free air. VASCULATURE ABDOMEN: No abdominal aortic aneursym. MUSCULOSKELETAL ABDOMEN PELVIS: Multilevel degenerative changes of the lumbar spine. Grade 1 anterolisthesis of L4 on L5. No aggressive appearing osseous lesions. No acute osseous abnormality. OTHER: No significant abnormality. IMPRESSION: 1. Status post right upper lobectomy. No evidence of local recurrence. 2. New 3 mm subpleural nodule in the lateral left upper lobe. Recommend attention on follow-up. 3. No evidence of metastatic disease in the abdomen. 4. Additional incidental and chronic findings as above. THIS IS AN ELECTRONICALLY VERIFIED FINAL REPORT 02/01/2025 9:58 AM - Electronically signed by Roe Polanco M.D. NS: NS Report ID: [id number] Reading Location: [id number] Procedure Note Roe Polanco MD - 02/01/2025 EXAM DESCRIPTION: CT CHEST ABDOMEN W CONTRAST REASON FOR STUDY: Restaging of lung cancer 3 month lung cancer f/u. No complaints. Hx of hernia repair, dacia,lobectomy, tubal ligation. Stage II B lung adenocarcinoma of the right upper lobewith multiple station 10 positive lymph nodes status post right upper lobectomy 02/03/2024 and immunotherapy. TECHNIQUE: CT scan of the chest and abdomen performed with intravenous and without oral contrast using helical scanning technique with dynamic intravenous contrast injection. Reconstructed coronal and sagittal MPRimages reviewed. All images stored on PACS. Automated exposure control was usedas a dose optimization technique for this examination CONTRAST TYPE/DOSE: 100mL of IOVERSOL 350 MG IODINE/ML INTRAVENOUSSYRINGE was injected via the intravenous COMPARISON: 10/29/2023, 01/21/2024, 04/19/2024, 08/02/2024, 11/02/2024 REFERENCE: Per ACR white paper recommendations, unless otherwise specifiedno follow-up imaging is recommended for incidental renal and adrenal lesionsper consensus recommendations based on imaging criteria. Further labevaluation could be pursued based on clinical findings. FINDINGS: CHEST HARDWARE/LINES/TUBES: None. VASCULATURE: No thoracic aortic aneurysm. MEDIASTINUM/HEART: Heart size within normal limits. No significant pericardial effusion. Esophagus is unremarkable. CORONARY ARTERY CALCIFICATION: No significant coronary atherosclerotic calcifications. LYMPH NODES: No pathologically enlarged thoracic lymphadenopathy. AIRWAY: Central airways are patent. LUNGS: Status post right upper lobectomy. No enlarging soft tissue alongthe surgical bed to suggest local recurrence. No focal consolidation, pneumothorax, or pleural effusion. Nodular dependent atelectasis. New 3mm subpleural nodule in the lateral left upper lobe (3; 49). BONES/SOFT TISSUES: Multilevel degenerative changes of the visualized cervicothoracic spine. No aggressive appearing osseous lesions. No acute osseous abnormality. Normal-appearing thyroid. ABDOMEN/PELVIS LIVER: Unchanged segment 1 cyst. No concerning lesions. GALLBLADDER/BILE DUCTS: Unchanged mild biliary ductal prominence, likely physiologic in the setting of cholecystectomy. SPLEEN: Unchanged subcentimeter hypodensity within the medial spleen unchanged over multiple prior examinations and likely benign (2; 85). PANCREAS: No significant ductal dilatation or discrete lesion. ADRENALS: No measurable nodule. KIDNEYS/URETERS: Tiny subcentimeter hypodensities too small to further characterize. No hydronephrosis. GASTROINTESTINAL: A few colonic diverticuli without acute inflammation. Postsurgical changes status post fundoplication. No evidence of bowel obstruction. LYMPH NODES: No pathologically enlarged abdominal or pelviclymphadenopathy. PERITONEUM/RETROPERITONEUM: No ascites or free air. VASCULATURE ABDOMEN: No abdominal aortic aneursym. MUSCULOSKELETAL ABDOMEN PELVIS: Multilevel degenerative changes of the lumbar spine. Grade 1 anterolisthesis of L4 on L5. No aggressiveappearing osseous lesions. No acute osseous abnormality. OTHER: No significant abnormality. IMPRESSION: 1. Status post right upper lobectomy. No evidence of local recurrence. 2. New 3 mm subpleural nodule in the lateral left upper lobe. Recommend attention on follow-up. 3. No evidence of metastatic disease in the abdomen. 4. Additional incidental and chronic findings as above. THIS IS AN ELECTRONICALLY VERIFIED FINAL REPORT 02/01/2025 9:58 AM - Electronically signed by Roe Polanco M.D. NS: NS Report ID: [id number] Reading Location: [id number] us Jessee Montoya MD PhD IMG CT PROCEDURES Fin al Result * POCT creatinine for contrast evaluation (01/31/2025 10:22 AM CDT) Creatinine POC 1.00 0.60 - 1.10 mg/dL Comment:Testing performed by : [facility], [address] [place] [address]., [id number] Blood 01/31/2025 10:2 2 AM CDT 01/31/2025 10:22 AM CDT us Jessee Montoya MD PhD POINT OF CARE TEST OR DERABLES Final Result [facility] [address] [facility] Department [place] [address] * COLONOSCOPY (12/15/2017 8:46 AM CDT) Anatomical Region Laterality Modality Other Narrative Procedure Note Angel Luis Damon MD - 12/15/2017 8:46 AM CDT [facility] Patient Name: Jillian Echeverria [...] by the physician, the nurse and the refrigerator assembler in the endoscopy suite. Mental Status Examination: [...] polyp removal. Procedure Code(s): --- Professional --- 38981, Colonoscopy, flexible; with removal oftumor(s), polyp(s), or other lesion(s) by hot biopsy forceps Diagnosis Code(s): --- Professional --- D12.0, Benign neoplasm of cecum K62.5, Hemorrhage of anus and rectum Z86.010, Personal history of colonic polyps K57.30, Diverticulosis of large intestine without perforation or abscess without bleeding CPT copyright 2017 [employer]. All rights reserved. The codes documented in this report are preliminary and upon sheet metal worker helper reviewmay be revised to meet current compliance [...] compared to prior imaging studies performed at [facility] on 03/14/2013, 11/24/2014 and 02/29/2016. The breasts [...] compared to prior imaging studies performed at [facility] on 03/14/2013, 11/24/2014 and 02/29/2016. The breasts are almost entirely fatty. There is no suspicious abnormality in either breast. Impression: Annual screening mammography is recommended. OVERALL FINAL ASSESSMENT: BI-RADS CATEGORY 1: Negative. Valentino Martinez MD IMG MAMMO PROCEDURES Fi nal Result from Last 3 Months or Most Recently Relevant to Health Maintenance Insurance [facility] MEDICARE Address: [address] [address] [place] [address] [facility] MEDICARE AD[facility] MEDICARE Address: [address] [place] [address] [facility] MEDICARE Address: [address] [address] [place] [address] [facility] MEDICARE ADV[facility] MEDICARE Address: [address] [address] [place] [address] Advance Directives For more information, please contact: [phone] * Full Code (Latest Code Status on File) Date Activated Date Inactivated Comments 02/03/2024 2:56 PM 02/06/2024 4:27 PM Care Teams Production Metal Sprayer Relationship Specialty Start Date End Date Valentino Martinez MD [address] [place] [address] PCP - General Family Medicine 11/07/21 Jessee Montoya MD PhD [facility] [address] [address] Consulting Physician Medical Oncology 12/09/23 Hai Marley MD [address] [facility]COL[facility]Y, [place] [address] Radiation Oncologist Radiation Oncology 03/02/24
--- OUTSIDE RECORDS SUMMARY | 2025-03-10 15:06 | XMS_ITS ---
Author Organization [facility] [address] Address [address] [place] [address] Care Team Providers Care Insight Director Name Role Phone Valentino Martinez MD Primary [...] (01/21/2019): Added automatically from request for surgery [id number] Imbalance 12/28/2018 Assessment & Plan (12/28/2018 9:09 AM CDT): Discussed balance activities such as yoga. No evidence of inner ear pathology such as BPPV today. Ear itching 12/28/2018 Assessment & Plan (12/28/2018 9:10 AM CDT): 50/50 alcohol and vinegar mix as needed. Keep ears dry. Tinnitus, bilateral 12/07/2018 Arthritis 11/03/2018 Overview (11/03/2018): Added automatically from request for surgery [id number] Diverticulosis of colon 01/20/2018 Hiatal hernia 01/20/2018 Polyp of colon 01/20/2018 History of colon polyps 12/09/2017 Overview (12/09/2017): Added automatically from request for surgery [id number] Gastroesophageal reflux disease 12/09/2017 Overview (12/09/2017): Added automatically from request for surgery [id number] Chest pain 11/23/2017 Assessment & Plan (11/23/2017 [...] PhD Linked Problems NSCLC with EGFR mutation Treatment Medications Current Day (Day 1, Cycle 2 - Planned for 12/21/2024) No medications scheduled. No medications schedul ed. Past Treatment and Therapy Plans No past plan information found. Lifetime Dose Tracking * Chemical Lifetime Dose Automatic Entry Manual Entr y DLP 995 mGycm 995 mGycm 0 mGycm
[2025-03-10 16:13] LABS: Add Urine Microscopic? YES; Appearance Urine Clear (Clear); Glucose Urine UA Negative (Negative); Leukocyte Esterase Ur Trace LEU/UL (Negative); Need Manual Microscopic Reviewed; Nitrate Urine Negative (Negative); Non Pathogenic Casts 0-2; Specific Grav Ur 1.013 (1.001-1.035)
== END 2025-03-10 15:04 | disposition home or self-care (01) ==
LOC: ANHLAB 15:04
PROVIDERS: PCP Family Medicine; Visit Provider Physician Assistant
DX: N39.0 Urinary tract infection, site not specified (principal); R30.0 Dysuria
CPT/HCPCS: 81001